=== PATIENT | female | born 1935 | race Caucasian/White ===

== ENCOUNTER 2017-07-14 14:58 | Emergency (ER) | payer MEDICARE ==
--- OUTSIDE RECORDS SUMMARY | 2017-07-14 15:06 | XMS REPORT ---
:1935 External Reference #:[id number] Author Organization [facility] Address [address] [place] [address] Phone [phone] Care Team Providers Name Role Phone Blayne Bravo MD Care Team Information Technical Architect Unavailable Blayne Bravo MD Primary Care Physician Unavailable Payers Type Date Identification Numbers Payment Provider Subscriber Commercial Policy Number: [id number] [employer] Olivia Morris PayID: [id number] [address] [place] [address] Commercial Expires: 2016 Policy Number: [facility] Olivia Morris [id number] PayID: [id number] [employer] [address] [address] [place] [address] Problems Date Description Provider Status Onset: 09/23/2015 Bipolar disorder Luis Alberto Xavier Active Onset: 09/23/2015 Low blood pressure Luis Alberto Xavier Active Onset: 09/24/2015 Anxiety state Luis Alberto XavierP Active Onset: 09/24/2015 Depressive disorder Luis Alberto Xavier [employer] Active Onset: 09/24/2015 Hypothyroidism Luis Alberto Xavier [employer] Active Onset: 09/24/2015 Chronic low back pain Luis Alberto XavierP Active Onset: 09/24/2015 Loss of appetite Luis Alberto Xavier [employer] Active Onset: 09/24/2015 Tobacco user Luis Alberto Xavier [employer] Active Onset: 09/24/2015 Chronic obstructive lung disease Luis Alberto Xavier [employer] Active Onset: 07/09/2014 Closed fracture of surgical neck of right Luis Alberto Xavier [employer] Active humerus Family History Date Family Member(s) Problem(s) Comments Father due to Colon Cancer () Mother due to Congestive Heart Failure () Social History Type Date Description Comments Marital Status Legal Status: Occupation Retired ETOH Use Denies alcohol use Smoking Patient is a current smoker, smokes every day 6-7 DAILY Recreational Drug Use Denies Drug Use Daily Caffeine Consumes on average 1 cup of regular coffee per day Allergies, Adverse Reactions, Alerts Date Description Reaction Status Severity Comments 09/23/2015 Penicillin active Medications Medication Date Status Form Strength Qnty SIG Indications Ordering Provider Alendronate Active Tablets 40mg 1 tab by M81.8 Lawrence, Sodium 018 mouth Ahmad M., every M.D. week Omeprazole Active Capsules DR 40mg 90caps 1 cap by L30.9 Lawrence, 018 mouth Ahmad M., every M.D. day as needed K21.0 Hydrocodone-Acetaminophen 11/04/2016 Active Tablets 5-325mg 90tabs 1 tab M51.37 Lawrence, by Ahmad mouth M., three M.D. times a day as needed M79.606 M51.37 Miralax 11/04/2016 Active Powder 3350NF 1020gm 1-2 caps by K59.00 Lawrence , mouth every Ahmad M., day M.D. Fluoxetine HCL 09/30/2016 Active Capsules 20mg 90caps 3 cap by E03.9 Lawrence, mouth every Ahmad M., morning M.D. F41.9 F33.9 Neurontin 09/02/2016 Active Capsules 300mg 120caps 1 cap by mouth F41.9 Lawrence, Ahmad four times a M., M.D. day G47.00 M15.9 Lisinopril 07/15/2016 Active Tablets 20mg 90tabs 1 by mouth I10 Lawrence, Ahmad every day M., M.D. Zoloft 06/21/2016 Active Tablets 100mg 90tabs 1 tab by mouth F31.9 Blayne Bravo every evening M., M.D. F41.9 F33.9 Calcium 1000 10/28/2015 Active Tablets [id number] 120tabs tab one M81.8 Lawrence, + D by mouth Ahmad twice a M., M.D. day Levothyroxin Active Tablets 100mcg 90tabs take 1 E03.9 Lawrence , e Sodium tablet by Ahmad mouth M., M.D. once daily Aspirin Active Tablets 81mg Take [address] Tablet By Mouth Once Daily For Preventio n I73.9 Clarithromycin Hx Tablets 500mg 20tabs 1 tab by J44.9 Blayne Bravo 018 - mouth twice a M., M.D. day 018 Hydrocodone-Acetaminop Hx Tablets 5-325mg 60tabs 1 tab by L30.9 Blayne Bravo hen 018 - mouth every 4 M., M.D. hours as 018 needed M25.559 M79.606 Ciprofloxacin HCL 11/04/2016 - Hx Tablets 500mg 14tabs 1 by K59.00 Lawrence, 11/11/2016 mouth Tonymalindsey Gallegos, twice a M.D. day Estradiol 10/11/2016 - Hx Patches 0.1mg/24 12units 1 Skin N95.9 Lawrence, 02/28/2017 Weekly HR every Ahmalindsey Gallegos, week M.D. Tylenol Extra 09/30/2016 - Hx Tablets 500mg 180tabs 2 tab by M51.37 Lawrence, Strength 11/04/2016 mouth Ahmalindsey M., three M.D. times a day M79.606 M51.37 Tramadol HCL 09/15/2016 - Hx Tablets 50mg 90tabs 1 by mouth J44.9 Blayne Bravo 09/30/2016 three times M., M.D. a day Benzonatate 09/15/2016 - Hx Capsules 200mg 60caps tab one by R05 Blayne Bravo 09/30/2016 mouth three M., M.D. times a day J44.9 Macrobid 09/05/2016 - Hx Capsules 100mg 10caps tab one by K59.00 Lawrence, 09/11/2016 mouth twice Ahmad M., a day x 5 M.D. days Hydrocodone-Ac 08/19/2016 - Hx Tablets 5-325mg 60tabs 1 tab by M51.37 Lawrence, etaminophen 09/15/2016 mouth every Ahmad M., 4 hours as M.D. needed M25.559 M79.606 Neurontin 06/21/2016 - Hx Capsules 300mg 90caps 1 cap by F41.9 Lawrence, Ahmad 08/19/2016 mouth three M., MAndreaD. times a day G47.00 M15.9 Amlodipine 04/15/2016 - Hx Tablets 5mg 30tabs 1 by mouth I10 Lawrence, Besylate 07/15/2016 every day Blayne Gallegos M.D. Calan SR 04/15/2016 - Hx Tablets ER 120mg 30tabs 1 tab by I10 Lawrence, 04/15/2016 mouth every Ahmad M., day M.D. Omeprazole 11/11/2015 - Hx Capsules DR 40mg 90caps 1 cap by K30 Lawrence, 09/20/2016 mouth every Ahmad M., day as M.D. needed K21.0 Tramadol HCL 09/23/2015 - Hx Tablets 50mg 90tabs 1 by mouth M51.37 Lawrence, Ahmad 08/19/2016 three times a M., M.D. day as needed M25.559 M79.606 Fluoxetine HCL 09/23/2015 - Hx Capsules 20mg 90caps 3 cap by F31.9 Lawrence, Ahmad 06/21/2016 mouth every M., M.D. day F41.9 F33.9 Daily Zach - Hx Tablets Take 1 Unknown 02/28/2017 Tablet By Mouth Once Daily Cyclobenzaprine HCL - Hx Tablets 5mg Take 1 M51.3 Unknown 11/26/2015 Tablet By 7 Mouth Nightly At Bedtime as Needed For Back Pain Alprazolam - Hx Tablets 0.25m F41.9 Breiman, 11/21/2015 miranda Gan MD Venlafaxine HCL ER - Hx Caps ER 24HR 150mg F33.9 Breiman, 12/10/2015 MD Malik Medications Administered in Office Medication Date Status Form Strength Qnty SIG Indications Ordering Provider Admin Of Administered Injection White, Pneumovax 016 Luis Alberto [employer] Immunizations CPT Code Status Date Vaccine Lot # [id number] Given 12/13/2016 Flu Vaccine 3+Yrs Old(Fluzone) [id number] Given 12/17/2015 Flu Vaccine 3+Yrs Old(Fluzone) [id number] Given 09/30/2015 Pneumovax [id number] Vital Signs Date Vital Result Comment 06/22/2017 BP Systolic 148 mmHg BP Diastolic 80 mmHg Weight 118.00 lb Heart Rate 83 /min Respiratory Rate 18 /min 05/19/2017 BP Systolic 148 mmHg BP Diastolic 82 mmHg Height 62 inches 5'2" Weight 122.00 lb BMI (Body Mass Index) 22.3 kg/m2 Heart Rate 81 /min Respiratory Rate 18 /min 04/07/2017 BP Systolic 162 mmHg BP Diastolic 82 mmHg Height 62 inches 5'2" Weight 121.00 lb BMI (Body Mass Index) 22.1 kg/m2 Heart Rate 81 /min Respiratory Rate 18 /min 02/28/2017 BP Systolic 126 mmHg BP Diastolic 72 mmHg Height 62 inches 5'2" Weight 122.00 lb BMI (Body Mass Index) 22.3 kg/m2 Heart Rate 83 /min Respiratory Rate 18 /min 01/17/2017 BP Systolic 152 mmHg BP Diastolic 80 mmHg Height 62 inches 5'2" Weight 125.00 lb BMI (Body Mass Index) 22.9 kg/m2 Heart Rate 86 /min Respiratory Rate 16 /min 12/13/2016 BP Systolic 132 mmHg BP Diastolic 68 mmHg Height 62 inches 5'2" Weight 125.00 lb BMI (Body Mass Index) 22.9 kg/m2 Heart Rate 89 /min Respiratory Rate 16 /min 12/01/2016 BP Systolic 140 mmHg BP Diastolic 80 mmHg Height 62 inches 5'2" Weight 123.00 lb BMI (Body Mass Index) 22.5 kg/m2 Heart Rate 81 /min Respiratory Rate 18 /min 11/04/2016 BP Systolic 138 mmHg BP Diastolic 72 mmHg Height 62 inches 5'2" Weight 127.00 lb BMI (Body Mass Index) 23.2 kg/m2 Heart Rate 88 /min Respiratory Rate 18 /min 10/11/2016 BP Systolic 130 mmHg BP Diastolic 58 mmHg Height 62 inches 5'2" Weight 126.00 lb BMI (Body Mass Index) 23.0 kg/m2 Heart Rate 97 /min Respiratory Rate 16 /min 09/30/2016 BP Systolic 142 mmHg BP Diastolic 60 mmHg Height 62 inches 5'2" Weight 125.00 lb BMI (Body Mass Index) 22.9 kg/m2 Heart Rate 80 /min Respiratory Rate 18 /min 09/15/2016 BP Systolic 142 mmHg BP Diastolic 62 mmHg Height 62 inches 5'2" Weight 132.00 lb BMI (Body Mass Index) 24.1 kg/m2 Heart Rate 99 /min Respiratory Rate 16 /min 09/05/2016 BP Systolic 102 mmHg BP Diastolic 54 mmHg Height 62 inches 5'2" Weight 132.00 lb BMI (Body Mass Index) 24.1 kg/m2 Heart Rate 80 /min Body Temperature 97.0 F Respiratory Rate 16 /min 08/19/2016 BP Systolic 132 mmHg BP Diastolic 64 mmHg Height 62 inches 5'2" Weight 135.00 lb BMI (Body Mass Index) 24.7 kg/m2 Heart Rate 71 /min Respiratory Rate 16 /min 07/15/2016 BP Systolic 134 mmHg BP Diastolic 70 mmHg Height 62 inches 5'2" Weight 137.00 lb BMI (Body Mass Index) 25.1 kg/m2 Heart Rate 68 /min Respiratory Rate 16 /min 07/08/2016 BP Systolic 148 mmHg BP Diastolic 80 mmHg Height 62 inches 5'2" Weight 135.00 lb BMI (Body Mass Index) 24.7 kg/m2 Heart Rate 86 /min Respiratory Rate 16 /min 06/21/2016 BP Systolic 118 mmHg BP Diastolic 60 mmHg Height 62 inches 5'2" Weight 127.00 lb BMI (Body Mass Index) 23.2 kg/m2 Heart Rate 80 /min Respiratory Rate 16 /min 05/26/2016 BP Systolic 170 mmHg BP Diastolic 64 mmHg Height 62 inches 5'2" Weight 128.00 lb BMI (Body Mass Index) 23.4 kg/m2 Heart Rate 57 /min Respiratory Rate 16 /min 05/12/2016 BP Systolic 150 mmHg BP Diastolic 72 mmHg Height 62 inches 5'2" Weight 129.00 lb BMI (Body Mass Index) 23.6 kg/m2 Heart Rate 89 /min Respiratory Rate 18 /min 04/15/2016 BP Systolic 198 mmHg BP Diastolic 98 mmHg BP Systolic Recheck 170 mmHg BP Diastolic Recheck 98 mmHg Height 62 inches 5'2" Weight 128.00 lb BMI (Body Mass Index) 23.4 kg/m2 Heart Rate 106 /min Respiratory Rate 16 /min 03/16/2016 BP Systolic 128 mmHg BP Diastolic 80 mmHg Height 62 inches 5'2" Weight 128.00 lb BMI (Body Mass Index) 23.4 kg/m2 Heart Rate 76 /min Respiratory Rate 18 /min 12/17/2015 BP Systolic 138 mmHg BP Diastolic 72 mmHg Height 62 inches 5'2" Weight 125.00 lb BMI (Body Mass Index) 22.9 kg/m2 Heart Rate 80 /min Respiratory Rate 18 /min 10/28/2015 BP Systolic 154 mmHg BP Diastolic 70 mmHg Height 62 inches 5'2" Weight 122.00 lb BMI (Body Mass Index) 22.3 kg/m2 Heart Rate 80 /min Respiratory Rate 20 /min 09/30/2015 BP Systolic 122 mmHg BP Diastolic 64 mmHg Height 62 inches 5'2" Weight 123.00 lb BMI (Body Mass Index) 22.5 kg/m2 Heart Rate 74 /min Respiratory Rate 18 /min 09/23/2015 BP Systolic 102 mmHg BP Diastolic 58 mmHg Height 62 inches 5'2" Weight 123.00 lb BMI (Body Mass Index) 22.5 kg/m2 Heart Rate 76 /min Respiratory Rate 18 /min Results Test Date Test Result H/L Range Note CBC Auto Diff 02/28/2017 White Blood Count 6.2 10^3/uL 3.5-10.8 Red Blood Count 5.27 10^6/uL 4.0-5.4 Hemoglobin 14.1 g/dL 12.0-16.0 Hematocrit 43 % 35-47 Mean Corpuscular Volume 82 fL 80-97 Mean Corpuscular Hemoglobin 27 pg 27-31 Mean Corpuscular HGB Conc 33 g/dL 31-36 Red Cell Distribution Width 16 % High 10.5-15 Platelet Count 167 10^3/uL 150-450 Mean Platelet Volume 9 um3 7.4-10.4 Abs Neutrophils 4.4 10^3/uL 1.5-7.7 Abs Lymphocytes 1.2 10^3/uL 1.0-4.8 Abs Monocytes 0.4 10^3/uL 0-0.8 Abs Eosinophils 0.2 10^3/uL 0-0.6 Abs Basophils 0 10^3/uL 0-0.2 Abs Nucleated RBC 0 10^3/uL Granulocyte % 71.5 % 38-83 Lymphocyte % 19.1 % Low 25-47 Monocyte % 5.9 % 1-9 Eosinophil % 2.7 % 0-6 Basophil % 0.8 % 0-2 Nucleated Red Blood Cells % 0.1 Comp Metabolic Panel 02/28/2017 Sodium 135 mmol/L 133-145 Potassium 4.4 mmol/L 3.5-5.0 Chloride 100 mmol/L Low 101-111 Co2 Carbon Dioxide 30 mmol/L 22-32 Anion Gap 5 mmol/L 2-11 Glucose 102 mg/dL High 70-100 Blood Urea Nitrogen 21 mg/dL 6-24 Creatinine 0.92 mg/dL 0.51-0.95 BUN/Creatinine Ratio 22.8 High 8-20 Calcium 9.5 mg/dL 8.6-10.3 Total Protein 6.7 g/dL 6.4-8.9 Albumin 4.0 g/dL 3.2-5.2 Globulin 2.7 g/dL 2-4 Albumin/Globulin Ratio 1.5 1-3 Total Bilirubin 0.50 mg/dL 0.2-1.0 Alkaline Phosphatase 80 U/L 34-104 Alt 12 U/L 7-52 Ast 16 U/L 13-39 Egfr Non- 58.9 >60 Egfr 75.7 >60 1 Laboratory test finding 02/28/2017 TSH (Thyroid Stim Horm) 1.00 mcIU/mL 0.34-5.60 Free T4 (Free Thyroxine) 1.08 ng/dL 0.61-1.12 Lipid Profile (Trig/Chol/HDL) 02/28/2017 Triglycerides 190 mg/dL 2 Cholesterol 272 mg/dL 3 HDL Cholesterol 47.8 mg/dL 4 LDL Cholesterol 186 mg/dL 5 Laboratory test finding 02/28/2017 Vitamin D Total 25(Oh) 44.6 ng/mL 20- 50 Basic Metabolic Panel 08/19/2016 Sodium 139 mmol/L 133-145 Potassium 4.3 mmol/L 3.5-5.0 Chloride 103 mmol/L 101-111 Co2 Carbon Dioxide 30 mmol/L 22-32 Anion Gap 6 mmol/L 2-11 Glucose 84 mg/dL 70-100 Blood Urea Nitrogen 17 mg/dL 6-24 Creatinine 1.04 mg/dL High 0.51-0.95 BUN/Creatinine Ratio 16.3 8-20 Calcium 9.5 mg/dL 8.6-10.3 Egfr Non- 51.1 >60 Egfr 65.7 >60 6 Lipid Profile (Trig/Chol/HDL) 03/16/2016 Triglycerides 113 mg/dL 7 Cholesterol 287 mg/dL 8 HDL Cholesterol 64.4 mg/dL 9 LDL Cholesterol 200 mg/dL 10 Comp Metabolic Panel 03/16/2016 Sodium 139 mmol/L 133-145 Potassium 4.3 mmol/L 3.5-5.0 Chloride 103 mmol/L 101-111 Co2 Carbon Dioxide 29 mmol/L 22-32 Anion Gap 7 mmol/L 2-11 Glucose 103 mg/dL High 70-100 Blood Urea Nitrogen 18 mg/dL 6-24 Creatinine 0.93 mg/dL 0.51-0.95 BUN/Creatinine Ratio 19.4 8-20 Calcium 9.9 mg/dL 8.6-10.3 Total Protein 6.8 g/dL 6.4-8.9 Albumin 4.2 g/dL 3.2-5.2 Globulin 2.6 g/dL 2-4 Albumin/Globulin Ratio 1.6 1-3 Total Bilirubin 0.50 mg/dL 0.2-1.0 Alkaline Phosphatase 66 U/L 34-104 Alt 11 U/L 7-52 Ast 13 U/L 13-39 Egfr Non- 58.3 >60 Egfr 75.0 >60 11 CBC Auto Diff 03/16/2016 White Blood Count 6.0 10^3/uL 3.5-10.8 Red Blood Count 5.41 10^6/uL High 4.0-5.4 Hemoglobin 14.8 g/dL 12.0-16.0 Hematocrit 46 % 35-47 Mean Corpuscular Volume 84 fL 80-97 Mean Corpuscular Hemoglobin 27 pg 27-31 Mean Corpuscular HGB Conc 32 g/dL 31-36 Red Cell Distribution Width 14 % 10.5-15 Platelet Count 200 10^3/uL 150-450 Mean Platelet Volume 9 um3 7.4-10.4 Abs Neutrophils 3.6 10^3/uL 1.5-7.7 Abs Lymphocytes 1.9 10^3/uL 1.0-4.8 Abs Monocytes 0.3 10^3/uL 0-0.8 Abs Eosinophils 0.1 10^3/uL 0-0.6 Abs Basophils 0.1 10^3/uL 0-0.2 Abs Nucleated RBC 0 10^3/uL Granulocyte % 59.7 % 38-83 Lymphocyte % 31.0 % 25-47 Monocyte % 5.8 % 1-9 Eosinophil % 2.4 % 0-6 Basophil % 1.1 % 0-2 Nucleated Red Blood Cells % 0.1 Laboratory test 03/16/2016 TSH (Thyroid Stim Horm) 0.41 mcIU/mL 0.34- 5.60 12 finding Laboratory test 12/17/2015 Vitamin D Total 25(Oh) 31.4 ng/mL 30-50 13 finding Lipid Profile 12/17/2015 Triglycerides 118 mg/dL 14 (Trig/Chol/HDL) Cholesterol 239 mg/dL 15 HDL Cholesterol 55.6 mg/dL 16 LDL Cholesterol 160 mg/dL 17 Comp Metabolic Panel 12/17/2015 Sodium 139 mmol/L 133-145 Potassium 4.0 mmol/L 3.5-5.0 Chloride 104 mmol/L 101-111 Co2 Carbon Dioxide 28 mmol/L 22-32 Anion Gap 7 mmol/L 2-11 Glucose 85 mg/dL 70-100 Blood Urea Nitrogen 26 mg/dL High 6-24 Creatinine 0.77 mg/dL 0.51-0.95 BUN/Creatinine Ratio 33.8 High 8-20 Calcium 9.9 mg/dL 8.6-10.3 Total Protein 6.6 g/dL 6.4-8.9 Albumin 4.0 g/dL 3.2-5.2 Globulin 2.6 g/dL 2-4 Albumin/Globulin Ratio 1.5 1-3 Total Bilirubin 0.40 mg/dL 0.2-1.0 Alkaline Phosphatase 69 U/L 34-104 Alt 10 U/L 7-52 Ast 14 U/L 13-39 Egfr Non- 72.5 >60 Egfr 93.2 >60 18 CBC Auto Diff 12/17/2015 White Blood Count 6.2 10^3/uL 3.5-10.8 Red Blood Count 4.81 10^6/uL 4.0-5.4 Hemoglobin 13.4 g/dL 12.0-16.0 Hematocrit 41 % 35-47 Mean Corpuscular Volume 85 fL 80-97 Mean Corpuscular Hemoglobin 28 pg 27-31 Mean Corpuscular HGB Conc 33 g/dL 31-36 Red Cell Distribution Width 17 % High 10.5-15 Platelet Count 186 10^3/uL 150-450 Mean Platelet Volume 10 um3 7.4-10.4 Abs Neutrophils 4.1 10^3/uL 1.5-7.7 Abs Lymphocytes 1.5 10^3/uL 1.0-4.8 Abs Monocytes 0.4 10^3/uL 0-0.8 Abs Eosinophils 0.1 10^3/uL 0-0.6 Abs Basophils 0.1 10^3/uL 0-0.2 Abs Nucleated RBC 0.01 10^3/uL Granulocyte % 66.7 % 38-83 Lymphocyte % 24.1 % Low 25-47 Monocyte % 6.5 % 1-9 Eosinophil % 1.6 % 0-6 Basophil % 1.1 % 0-2 Nucleated Red Blood Cells % 0.1 Laboratory test finding 12/17/2015 TSH (Thyroid Stim 1.39 mcIU/mL 0.34- 5.60 19 Horm) Free T4 (Free Thyroxine) 0.96 ng/dL 0.61-1.12 20 1 Because ethnic data is not always readily available, this report includes an eGFR for both -Americans and non- Americans. The National Kidney Disease Education Program (NKDEP) does not endorse the use of the MDRD equation for patients that are not between the ages of 18 and 70, are , have extremes of body size, muscle mass, or nutritional status, or are non- or non-. According to the National Kidney Foundation, irrespective of diagnosis, the stage of the disease is based on the level of kidney function: Stage Description GFR(mL/min/1.73 m(2)) 1 Kidney damage with normal or decreased GFR 90 2 Kidney damage with mild decrease in GFR 60-89 3 Moderate decrease in GFR 30-59 4 Severe decrease in GFR 15-29 5 Kidney failure <15 (or dialysis) 2 Desirable: <150 Borderline High: 150-199 High: 200-499 Very High: >500 3 Desirable: <200 Borderline High: 200-239 High: >239 4 Low: <40 Desirable: 40-60 High: >60 5 Desirable: <100 Near Optimal: 100-129 Borderline High: 130-159 High: 160-189 Very High: >189 6 Because ethnic data is not always readily available, this report includes an eGFR for both -Americans and non- Americans. The National Kidney Disease Education Program (NKDEP) does not endorse the use of the MDRD equation for patients that are not between the ages of 18 and 70, are , have extremes of body size, muscle mass, or nutritional status, or are non- or non-. According to the National Kidney Foundation, irrespective of diagnosis, the stage of the disease is based on the level of kidney function: Stage Description GFR(mL/min/1.73 m(2)) 1 Kidney damage with normal or decreased GFR 90 2 Kidney damage with mild decrease in GFR 60-89 3 Moderate decrease in GFR 30-59 4 Severe decrease in GFR 15-29 5 Kidney failure <15 (or dialysis) 7 Desirable <150 Borderline high 150-199 High 200-499 Very High >500 8 Desirable <200 Borderline high 200-239 High >239 9 Low <40 Desirable: 40-60 High: >60 10 Desirable: <100 mg/dL Near Optimal: 100-129 mg/dL Borderline High: 130-159 mg/dL High: 160-189 mg/dL Very High: >189 mg/dL 11 Because ethnic data is not always readily available, this report includes an eGFR for both -Americans and non- Americans. The National Kidney Disease Education Program (NKDEP) does not endorse the use of the MDRD equation for patients that are not between the ages of 18 and 70, are , have extremes of body size, muscle mass, or nutritional status, or are non- or non-. According to the National Kidney Foundation, irrespective of diagnosis, the stage of the disease is based on the level of kidney function: Stage Description GFR(mL/min/1.73 m(2)) 1 Kidney damage with normal or decreased GFR 90 2 Kidney damage with mild decrease in GFR 60-89 3 Moderate decrease in GFR 30-59 4 Severe decrease in GFR 15-29 5 Kidney failure <15 (or dialysis) 12 [id number] Desirable <150 Borderline high 150-199 High 200-499 Very High >500 15 Desirable <200 Borderline high 200-239 High >239 16 Low <40 Desirable: 40-60 High: >60 17 Desirable: <100 mg/dL Near Optimal: 100-129 mg/dL Borderline High: 130-159 mg/dL High: 160-189 mg/dL Very High: >189 mg/dL 18 Because ethnic data is not always readily available, this report includes an eGFR for both -Americans and non- Americans. The National Kidney Disease Education Program (NKDEP) does not endorse the use of the MDRD equation for patients that are not between the ages of 18 and 70, are , have extremes of body size, muscle mass, or nutritional status, or are non- or non-. According to the National Kidney Foundation, irrespective of diagnosis, the stage of the disease is based on the level of kidney function: Stage Description GFR(mL/min/1.73 m(2)) 1 Kidney damage with normal or decreased GFR 90 2 Kidney damage with mild decrease in GFR 60-89 3 Moderate decrease in GFR 30-59 4 Severe decrease in GFR 15-29 5 Kidney failure <15 (or dialysis) 19 [id number] 20 [id number] Procedures Date CPT Code Description Status 04/07/2017 88336 Spirometry Completed 09/15/2016 88465 Spirometry Completed 09/05/2016 57972 Spirometry Completed 09/05/2016 63989 Tympanometry Completed 04/15/2016 16191 EKG Completed 09/23/2015 22481 Visual Screening Test Completed 09/23/2015 07212 Audiometry, Bekesy, Screening Completed 02/20/2014 Mammogram Completed Encounters Type Date Location Provider CPT E/M Dx Office Visit 06/22/2017 1:00p [facility] Blayne Bravo M.D. 17643 J44.9 E03.9 I10 M51.37 F02.80 F17.210 E78.2 I65.22 I73.9 I65.23 F41.9 F31.9 M79.606 M25.559 F33.9 M15.9 M81.8 R55 L30.9 L20.9 J30.9 R26.81 K21.0 K30 H90.6 G47.00 R60.0 I71.4 N95.9 K59.00 E55.9 R05 R06.02 M25.562 Office Visit 05/19/2017 11:00a [facility] Blayne Bravo M.D. 99780 J44.9 E03.9 I10 M51.37 F02.80 F17.210 E78.2 I65.22 I73.9 I65.23 F41.9 F31.9 M79.606 M25.559 F33.9 M15.9 M81.8 R55 L30.9 L20.9 J30.9 R26.81 K21.0 K30 H90.6 G47.00 R60.0 I71.4 N95.9 K59.00 E55.9 J18.9 R05 R06.02 Office Visit 04/07/2017 1:30p [facility] Blayne Bravo M.D. 12206 J44.9 E03.9 I10 M51.37 F02.80 F17.210 E78.2 I65.22 I73.9 I65.23 F41.9 F31.9 M79.606 M25.559 F33.9 M15.9 M81.8 R55 L30.9 L20.9 J30.9 R26.81 K21.0 K30 H90.6 G47.00 R60.0 I71.4 N95.9 K59.00 E55.9 J18.9 R05 R06.02 Office Visit 02/28/2017 10:45a [facility] Blayne Bravo M.D. 17489 J44.9 E03.9 I10 M51.37 F02.80 F17.210 E78.2 I65.22 I73.9 I65.23 F41.9 F31.9 M79.606 M25.559 F33.9 M15.9 M81.8 R55 L30.9 L20.9 J30.9 R26.81 K21.0 K30 H90.6 G47.00 R60.0 I71.4 N95.9 K59.00 E55.9 Office Visit 01/17/2017 10:15a [facility] Blayne Bravo M.D. 85643 J44.9 E03.9 I10 M51.37 F02.80 F17.210 E78.2 I65.22 I73.9 I65.23 F41.9 F31.9 M79.606 M25.559 F33.9 M15.9 M81.8 R55 L30.9 L20.9 J30.9 R26.81 K21.0 K30 H90.6 G47.00 R60.0 I71.4 N95.9 K59.00 Office Visit 12/13/2016 10:30a [facility] Blayne Bravo M.D. 04808 J44.9 E03.9 I10 M51.37 F02.80 F17.210 E78.2 I65.22 I73.9 I65.23 F41.9 F31.9 M79.606 M25.559 F33.9 M15.9 M81.8 R55 L30.9 L20.9 J30.9 R26.81 K21.0 K30 H90.6 G47.00 R60.0 I71.4 N95.9 K59.00 Z23 Office Visit 12/01/2016 2:15p [facility] Blayne Bravo M.D. 51598 J44.9 E03.9 I10 M51.37 F02.80 F17.210 E78.2 I65.22 I73.9 I65.23 F41.9 F31.9 M79.606 M25.559 F33.9 M15.9 M81.8 R55 L30.9 L20.9 J30.9 R26.81 K21.0 K30 H90.6 G47.00 R60.0 I71.4 N95.9 K59.00 Office Visit 11/04/2016 1:30p [facility] Blayne Bravo M.D. 88674 J44.9 E03.9 I10 M51.37 F02.80 F17.210 E78.2 I65.22 I73.9 I65.23 F41.9 F31.9 M79.606 M25.559 F33.9 M15.9 M81.8 R55 L30.9 L20.9 J30.9 R26.81 K21.0 K30 H90.6 G47.00 R60.0 I71.4 N95.9 N39.0 K59.00 Z00.01 Office Visit 10/11/2016 1:30p [facility] Blayne Bravo M.D. 15815 J44.9 E03.9 I10 M51.37 F02.80 F17.210 E78.2 I65.22 I73.9 I65.23 F41.9 F31.9 M79.606 M25.559 F33.9 M15.9 M81.8 R55 L30.9 L20.9 J30.9 R26.81 K21.0 K30 H90.6 G47.00 R60.0 I71.4 N95.9 Office Visit 09/30/2016 1:30p [facility] Blayne Bravo M.D. 94882 J44.9 E03.9 I10 M51.37 F02.80 F17.210 E78.2 I65.22 I73.9 I65.23 F41.9 F31.9 M79.606 M25.559 F33.9 M15.9 M81.8 R55 L30.9 L20.9 J30.9 R26.81 K21.0 K30 H90.6 G47.00 R60.0 I71.4 Office Visit 09/15/2016 11:00a [facility] DucLuis Alberto [facility] [address] R05 F17.210 J44.9 E03.9 F02.80 Office Visit 09/05/2016 1:45p [facility] Luis Alberto Xavier [facility] [address]47 I10 M51.37 E03.9 E78.2 J44.9 F17.210 R30.0 N39.0 Office Visit 08/19/2016 2:15p [facility] Blayne Bravo M.D. 33027 I65.22 I73.9 I10 M51.37 E03.9 E78.2 J44.9 F17.210 I65.23 F41.9 F31.9 M79.606 M25.559 F33.9 M15.9 M81.8 R55 L30.9 L20.9 J30.9 R26.81 K21.0 K30 H90.6 G47.00 R60.0 Office Visit 07/15/2016 11:00a [facility] Blayne Bravo M.D. 82363 I65.22 I73.9 I10 M51.37 E03.9 E78.2 J44.9 F17.210 I65.23 F41.9 F31.9 M79.606 M25.559 F33.9 M15.9 M81.8 R55 L30.9 L20.9 J30.9 R26.81 K21.0 K30 H90.6 G47.00 R60.0 Office Visit 07/08/2016 1:45p [facility] Blayne Bravo M.D. 98026 I65.22 I73.9 I10 M51.37 E03.9 E78.2 J44.9 F17.210 I65.23 F41.9 F31.9 M79.606 M25.559 F33.9 M15.9 M81.8 R55 L30.9 L20.9 J30.9 R26.81 K21.0 K30 H90.6 G47.00 R60.0 Office Visit 06/21/2016 11:30a [facility] Blayne Bravo M.D. 01243 I65.22 I73.9 I10 M51.37 E03.9 E78.2 J44.9 F17.210 I65.23 F41.9 F31.9 M79.606 M25.559 F33.9 M15.9 M81.8 R55 L30.9 L20.9 J30.9 R26.81 K21.0 K30 H90.6 G47.00 Office Visit 05/26/2016 1:30p [facility] Blayne Bravo M.D. 88502 I65.22 I73.9 I10 M51.37 E03.9 E78.2 J44.9 F17.210 I65.23 F41.9 F31.9 M79.606 M25.559 F33.9 M15.9 M81.8 R55 L30.9 L20.9 J30.9 R26.81 K21.0 K30 H90.6 Office Visit 05/12/2016 2:30p [facility] Blayne Bravo M.D. 79662 I65.22 I73.9 I10 M51.37 E03.9 E78.2 J44.9 F17.210 I65.23 F41.9 F31.9 M79.606 M25.559 F33.9 M15.9 M81.8 R55 L30.9 L20.9 J30.9 R26.81 K21.0 K30 Z01.818 Office Visit 04/15/2016 4:30p [facility] Blayne Bravo M.D. 99887 I73.9 I10 M51.37 E03.9 E78.2 J44.9 F17.210 I65.23 F41.9 F31.9 M79.606 M25.559 F33.9 M15.9 M81.8 R55 K21.9 L30.9 L20.9 J30.9 R26.81 Office Visit 03/16/2016 11:00a [place] [facility] Luis Alberto Xavier [facility] 43343 M51.37 E03.9 E78.2 J44.9 F17.210 I65.23 F41.9 F31.9 I73.9 Office Visit 12/17/2015 11:30a [place] [facility] Blayne Bravo M.D. 73276 M51.37 M79.606 M25.559 E03.9 E78.2 J44.9 F17.210 I65.23 F31.9 F41.9 F33.9 M15.9 M81.8 R55 K21.9 L30.9 L20.9 J30.9 R26.81 Z23 I10 I95.9 Office Visit 10/28/2015 11:15a [place] [facility] Luis Alberto Xavier [facility] 13712 I65.23 I95.9 F31.9 F41.9 F17.210 M81.8 M25.552 Office Visit 09/30/2015 2:00p [place] [facility] Luis Alberto Xavier [facility] 91274 F17.210 R55 M25.552 I95.9 F31.9 F41.9 E03.9 I65.23 Z23 Office Visit 09/23/2015 10:45a [place] [facility] Luis Alberto Xavier [facility] 17779 F17.210 Z00.01 R55 I95.9 F31.9 F41.9 M25.552 E03.9 Plan of Care 06/22/2017 - Blayne Bravo M.D.J44.9 Chronic obstructive pulmonary disease, unspecifiedComments:INCREASE PO FLUIDRESTSMOKING ZIYLQYUJIK70.9 Hypothyroidism, unspecifiedComments:RX REVIEWED AND UPDATEDF/U TSH/ FT4I10 Essential (primary) hypertensionComments:CHECK BP TIW ( PRN)F/U LABDIET AND FLUID COUNSELING LOW SODIUM DIETWT LOSSM51.37 Other intervertebral disc degeneration, lumbosacral regionComments:EXERCISE/HEAT /MESSAGEAVOID HEAVY LIFTING WT LOSSTYLENOL OR MOTRIN PRN DUR CFMPJAOU19.80 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 elswhr w/o behavrl disturbComments:COUNCELLING AND REASSURANCE LTC PLANS DISSCUSED WITH PT / FAMILY LSGXYRT75.210 Nicotine dependence, cigarettes, uncomplicatedComments: SMOKING CESSATION BEEKFJYHZUAX17.2 Mixed hyperlipidemiaComments:DIET REVIEWED CONTINUE DIETWT LOSSF/U LAB FBWI65.22 Occlusion and stenosis of left carotid arteryComments:S/P L CEA 05/20/16STABLE AND ASYMPTOMATIC F/U WITH SURGERY WITH YEARLY CAROTID U/SI73.9 Peripheral vascular disease, unspecifiedComments:SKIN CARE FOOT CARE PODIATRY PRN CARE SMOKING WKFYMPOVBQ22.23 Occlusion and stenosis of bilateral carotid arteriesComments:STABLE AND ASYMPTOMATIC F/U WITH SURGERY WITH YEARLY CAROTID U/SF41.9 Anxiety disorder, unspecifiedComments: COUNCELLING AND REASSURANCE RELAXATION TECHNIQUES DISCUSSEDCOUNSELED RE: STRESSORS IN LIFE AVOID ALLENERGY/HIGH CAFFEINE AWKMDEO72.9 Bipolar disorder, unspecifiedComments:COUNSELING AND REASSURANCE CONTINUE PRESCRIBED MEDICATIONS RELAXATION TECHNIQUES DISCUSSED COUNSELEDRE: STRESSORS IN LIFEM79.606 Pain in leg, unspecifiedComments:TYLENOL OR MOTRIN PRN EXERCISE/HEAT/MESSAGE DUR CCEFLDZS77.559 Pain in unspecified hipComments:EXERCISE/HEAT/MESSAGETYLENOL OR MOTRIN PRNAVOID HEAVY LIFTINGWT LOSS DUR DXQBFWLB78.9 Major depressive disorder, recurrent, unspecifiedComments:COUNCELLING AND REASSURANCE RELAXATION TECHNIQUES DISCUSSED COUNSELED RE: STRESSORS IN LIFEM15.9 Polyosteoarthritis, unspecifiedComments:EXERCISE/HEAT/MESSAGETYLENOL OR MOTRIN PRNAVOID HEAVY LIFTINGWT LOSS DUR RTOFTQUV53.8 Other osteoporosis without current pathological fractureComments:EXERCISESCALCIUM [id number] Syncope and collapseComments: OBSERVE SAFETYCOUNCELLING AND XJIYOSJJLQYY08.9 Dermatitis, unspecifiedComments: SKIN CARE INSTRUCTIONS LOTION OR BABY OIL 2-3 APPLICATION PER DAYUSE MOISTURIZING SOAPAVOID PROLONGED WATER EXPOSUREAVOID USING HOT WATER IN HRCNXPS76.9 Atopic dermatitis, unspecifiedComments:SKIN CARE INSTRUCTIONS LOTION OR BABY OIL 2-3 APPLICATION PER DAYUSE MOISTURIZING SOAPAVOID PROLONGED WATER EXPOSUREAVOID USING HOT WATER IN NNMRZYU46.9 Allergic rhinitis, unspecifiedComments:INCREASE PO FLUID USE ANTIHISTAMINE PRN SECOND HAND SMOKING AVOIDANCE SMOKING UVRDKKXGJM21.81 Unsteadiness on feetComments:SAFETY CLEAR PATH @ HOMEAVOID USE OF LOOSE RUGSUSE CANE /WALKER NEEDEDPROVIDE ADEQUATE LIGHT @ HOMEUSE WELL FITTED SHOESCONSIDER USE OF REMOTE CALLING DEVICEARRANGE FOR REGURAL CHECK UP BY FAMILY ORFRIENDS USE CANEK21.0 Gastro-esophageal reflux disease with esophagitisComments:AVOID CAFFEINE, ETOH AND SPICY FOODSTUMS OR MYLANTA PRN CALL WITH PROBLEMS OR CONCERNSTOBACCO USE [id number] Functional dyspepsiaComments:AVOID CAFFEINE, ETOH AND SPICY FOODSTUMS OR MYLANTA PRN CALL WITH PROBLEMS OR CONCERNSTOBACCO USE LQPGFBHJHD80.6 Mixed conductive and sensorineural hearing loss, bilateralComments:OBSERVE F/U WITH ENT PRN SMOKING CWEOKZJOWN19.00 Insomnia, unspecifiedComments:COUNCELLING AND REASSURANCE RELAXATION TECHNIQUES DISCUSSED COUNSELED RE: STRESSORS IN LIFE TYLENOLPM OR MOTRIN PM PRN DUR APMRTAAH64.0 Localized edemaComments:ELEVATE LE PRNELASTIC STOCKING / CHERELLE WRAP PRNF/U LABI71.4 Abdominal aortic aneurysm, without ruptureComments:CALL 911 UNRULY WITH ANY ABD OR BACK PAIN F/U CT Q 6-12 GKOTCMU02.9 Unspecified menopausal and perimenopausal disorderComments: COUNCELLING AND GEHNWZYGTKVZYCTB18.00 Constipation, unspecifiedComments:MOM OR MIRALAX PRNHIGH FIBER DIETINCREASE PO VOHVMU70.9 Vitamin D deficiency, unspecifiedComments:INCREASE EXPOSURE TO SUNREVIEW OF DIETR05 CoughComments: INCREASE CLEAR LIQUIDSSTEAMGARGLE WARM SALT H2O TID ROBITUSSIN DM PRN SMOKING CESSATION CMGFEEUKDECG55.02 Shortness of breathComments:INCREASE PO FLUIDRESTSMOKING BRBXCLMKPP97.562 Pain in left kneeComments:EXERCISE/HEAT / MESSAGEAVOID HEAVY LIFTING WT LOSSTYLENOL OR MOTRIN PRNReferral:Evangelista Brian MD , Orthopedic/Nursery Helper
[2017-07-14 15:22] VITALS: BP 208/84
--- NOTE | 2017-07-14 15:23 | ED ---
HPI Chest Pain - HPI Summary HPI Summary: 81 yo h/o CAD, aortic stenosis, recent h/o left carotid endarterectomy c/o substernal CP x 1 day intermittent+nausea and "weakness" in general. - History of Current Complaint Chief Complaint: UCChestPain Time Seen by Provider: 07/14/17 15:05 Hx Obtained From: Patient Onset/Duration: Started Minutes Ago Timing: Lasting Hours Initial Severity: Moderate Current Severity: Moderate Pain Intensity: 0 - Allergy/Home Medications Allergies/Adverse Reactions: Allergies Allergy/AdvReac Type Severity Reaction Status Date / Time Penicillins Allergy Hives Verified 07/14/17 15:08 Home Medications: Home Medications Gabapentin CAP(*) [Neurontin 300 CAP(*)] 300 mg PO TID 07/14/17 [History Confirmed 07/14/17] Lisinopril TAB* [Prinivil TAB*] 20 mg PO DAILY 07/14/17 [History Confirmed 07/14] PMH/Surg Hx/FS Hx/Imm Hx Previously Healthy: Yes Endocrine/Hematology History: Reports: Hx Thyroid Disease Denies: Hx Diabetes Cardiovascular History: Reports: Hx Hypercholesterolemia, Hx Hypertension, Other Cardiovascular Problems/Disorders - "Poor circulation to feet" Denies: Hx Pacemaker/ICD History: Reports: Hx Renal Disease - abnormal gfr Denies: Hx Dialysis Sensory History: Reports: Hx Cataracts Denies: Hx Hearing Aid Opthamlomology History: Reports: Hx Cataracts Psychiatric History: Denies: Hx Panic Disorder - Surgical History Surgery Procedure, Year, and Place: 3 - THRYOID SURG - FINAL - THYROIDECTOMY. HYSTERECTOMY. CHOLECYTECTOMY. BROKEN ARM/SHOULDER RIGHT JUNE 2014 Infectious Disease History: No Infectious Disease History: Denies: Traveled Outside the [place] in Last 30 Days - Family History Known Family History: Positive: Hypertension, Other - Sister: Aneurysm - Social History Alcohol Use: None Hx Substance Use: No Substance Use Type: Reports: None Hx Tobacco Use: Yes Smoking Status (MU): Light Every Day Tobacco Smoker Type: Cigarettes Amount Used/How Often: 1 ppd Have You Smoked in the Last Year: Yes Review of Systems Positive: Fatigue Eyes: Negative ENT: Negative Positive: Chest Pain Respiratory: Negative Gastrointestinal: Negative Musculoskeletal: Negative Skin: Negative Neurological: Negative Psychological: Normal All Other Systems Reviewed And Are Negative: Yes Physical Exam Triage Information Reviewed: Yes Vital Signs On Initial Exam: Initial Vitals Temp Pulse Resp BP Pulse Ox 36.4 C 72 18 192/76 94 07/14/17 15:00 07/14/17 15:00 07/14/17 15:00 07/14/17 15:00 07/14/17 15:00 Vital Signs Reviewed: Yes Appearance: Positive: No Pain Distress Skin: Positive: Warm Eyes: Positive: Normal ENT: Positive: Normal ENT inspection Neck: Positive: Supple Respiratory/Lung Sounds: Positive: Clear to Auscultation Cardiovascular: Positive: Murmur - right 2nd ICD grade 2 cresendo decrescendo murmur, S1, S2 Abdomen Description: Positive: Nontender Musculoskeletal: Positive: Normal Neurological: Positive: Normal, Sensory/Motor Intact, CN Intact II-III, Speech Normal Psychiatric: Positive: Normal Diagnostics - Vital Signs Vital Signs Temp Pulse Resp BP Pulse Ox 07/14/17 15:00 36.4 C 72 18 192/76 94 - Laboratory Lab Statement: Any lab studies that have been ordered have been reviewed, and results considered in the medical decision making process. Chest Pain Course/Dx - Course Course Of Treatment: Pt sent to ED via ambulance due to acute substernal CP, EKG no STT chnages, no old EKG available - Chest Pain Differential Diagnosis/HQI/PQRI: Acute [place], ACS, Angina, Aortic Aneurysm, CHF, GI Disease - Diagnoses Provider Diagnoses: Chest pain due to CAD - Provider Notifications Admit/Transition Orders Completed By ED Provider: Yes Discharge - Sign-Out/Discharge Documenting (check all that apply): Discharge/Admit/Transfer - Discharge Plan Condition: Stable Disposition: TRANS [facility] CARE FAC Discharge Disposition Comment: Called ED and informed Megha the PA Patient Education Materials: Chest Pain (ED) Referrals: Blayne Bravo MD [Primary Care Provider] - - Billing Disposition and Condition Condition: STABLE Disposition: [id number]
== END 2017-07-14 15:25 | disposition short-term general hospital (02) ==
LOC: UCEAST 14:58
DX: R07.89 Other chest pain (principal); I25.10 Atherosclerotic heart disease of native coronary artery without angina pectoris; R11.0 Nausea; R53.1 Weakness; I10 Essential (primary) hypertension; Z79.899 Other long term (current) drug therapy; F17.210 Nicotine dependence, cigarettes, uncomplicated; Z88.0 Allergy status to penicillin
CPT/HCPCS: 93005; 99213; G0463

== ENCOUNTER 2017-07-14 15:55 | Emergency (ER) | payer MEDICARE ==
[2017-07-14 16:51] LABS: EGFR Non-African American 58.9 (>60)
--- NOTE | 2017-07-14 17:01 | RAD ---
Indication: 3 days chest pain. History of tobacco use. Comparison: September 15, 2016 Technique: Upright AP 1642 hours Report: Elevated lung volumes and mild to moderate diffuse prominence of the interstitial markings similar to the prior exam. No focal pulmonary lesion, compelling alveolar consolidation, pleural effusion, pneumothorax. Negative for cardiomegaly. Unremarkable central pulmonary vasculature and mediastinal contours. RIGHT prosthetic humeral head and cerclage wires at the humeral neck/proximal diaphysis as on the prior exam. IMPRESSION: Stigmata of obstructive lung disease. No acute pulmonary or cardiac process evident.
[2017-07-14 17:13] LABS: ABS Basophils 0 10^3/ul (0-0.2); ABS Eosinophils 0.2 10^3/ul (0-0.6); ABS Lymphocytes 1.5 10^3/ul (1.0-4.8); ABS Monocytes 0.4 10^3/ul (0-0.8); ABS Neutrophils 4.3 10^3/ul (1.5-7.7); ABS Nucleated RBC 0 10^3/ul; Eosinophil % 2.9 % (0-6); Hematocrit 42 % (35-47); Lymphocyte % 23.6 % (25-47); Mean Corpuscular HGB Conc 33 g/dl (31-36); Mean Corpuscular Hemoglobin 28 pg (27-31); Mean Corpuscular Volume 83 fL (80-97); Mean Platelet Volume 8.4 um3 (7.4-10.4); Nucleated Red Blood Cells % 0.1; Platelet Count 159 10^3/ul (150-450); Red Blood Count 5.08 10^6/ul (4.0-5.4); Red Cell Distribution Width 16 % (10.5-15); White Blood Count 6.5 10^3/ul (3.5-10.8)
[2017-07-14] MEDS ORDERED: hydrALAZINE IV* 20 MG/ML VIAL IV SLOW PU ONE (17:50)
[2017-07-14 19:50] VITALS: BP 176/80
--- NOTE | 2017-07-14 21:02 | ED ---
Yojana Cervantes Rebecca, scribed for Shabbir Miranda MD on 07/14/17 at 1625 . HPI Chest Pain - HPI Summary HPI Summary: Pt is a 81 y/o F BIBA who presents to ED from [facility] due to CP and elevated BP. Pt has had CP for the past 2 days, described as heaviness, like "somebody sitting on her chest" per daughter. Took hydrocodone for chronic back pain about 1.5 hours [employer]. Currently, pain is not present, ranked 0/10. Daughter additionally notes bilateral arm tingling and N/V earlier today. PMHx AAA (w/o rupture), HTN - is on medication; negative PMHx CAD. PSHx carotid endarterectomy 1 year ago. - History of Current Complaint Chief Complaint: EDChestPainROMI Time Seen by Provider: 07/14/17 16:17 Hx Obtained From: Patient Onset/Duration: Started Days Ago - 2 days, Resolved Current Severity: None Pain Intensity: 0 Pain Scale Used: 0-10 Numeric Character: Heaviness Aggravating Factor(s): Nothing Alleviating Factor(s): Medication - Hydrocodone [employer] Associated Signs and Symptoms: Positive: Nausea, Vomiting, Other: - elevated BP - Allergy/Home Medications Allergies/Adverse Reactions: Allergies Allergy/AdvReac Type Severity Reaction Status Date / Time Penicillins Allergy Hives Verified 07/14/17 15:08 Home Medications: Home Medications Alendronate Sodium 40 mg PO WEEKLY 07/14/17 [History Confirmed 07/14/17] Aspirin EC TAB* [Ecotrin EC Low Dose 81 MG*] 162 mg PO DAILY 07/14/17 [History Confirmed 07/14/17] Calcium Citrate TAB* [Citracal TAB*] 200 mg PO DAILY 07/14/17 [History Confirmed 07/14/17] Cholecalciferol (Vitamin D3) [Vitamin D3] 1,000 unit PO DAILY 07/14/17 [History Confirmed 07/14/17] FLUoxetine CAP* [PROzac CAP*] 60 mg PO QAM 07/14/17 [History Confirmed 07/14/17] HYDROcodone/ACETAMIN 5-325 MG* [[place] 5-325 TAB*] 1 tab PO TID PRN 07/14/17 [ History Confirmed 07/14/17] Levothyroxine TAB* [Synthroid TAB*] 100 mcg PO DAILY 07/14/17 [History Confirmed 07/14/17] Sertraline* [Zoloft*] 100 mg PO BEDTIME 07/14/17 [History Confirmed 07/14/17] PMH/Surg Hx/FS Hx/Imm Hx Endocrine/Hematology History: Reports: Hx Thyroid Disease Denies: Hx Diabetes Cardiovascular History: Reports: Hx Hypercholesterolemia, Hx Hypertension, Other Cardiovascular Problems/Disorders - "Poor circulation to feet" Denies: Hx Pacemaker/ICD History: Reports: Hx Renal Disease - abnormal gfr Denies: Hx Dialysis Sensory History: Reports: Hx Cataracts Denies: Hx Hearing Aid Opthamlomology History: Reports: Hx Cataracts Psychiatric History: Denies: Hx Panic Disorder - Surgical History Surgery Procedure, Year, and Place: 3 - THRYOID SURG - FINAL - THYROIDECTOMY. HYSTERECTOMY. CHOLECYTECTOMY. BROKEN ARM/SHOULDER RIGHT JUNE 2014 Infectious Disease History: No Infectious Disease History: Denies: Traveled Outside the [place] in Last 30 Days - Family History Known Family History: Positive: Hypertension, Other - Sister: Aneurysm - Social History Alcohol Use: None Hx Substance Use: No Substance Use Type: Reports: None Hx Tobacco Use: Yes Smoking Status (MU): Light Every Day Tobacco Smoker Type: Cigarettes Amount Used/How Often: 1 ppd Have You Smoked in the Last Year: Yes Review of Systems Positive: Chest Pain - resolved Positive: Vomiting, Nausea Neurological: Other - Bilateral UE tingling All Other Systems Reviewed And Are Negative: Yes Physical Exam - Summary Physical Exam Summary: VITAL SIGNS: Reviewed. GENERAL: ~Patient is a well-developed and nourished female who is lying comfortable in the stretcher. ~Patient is not in any acute respiratory distress. HEAD AND FACE: No signs of trauma. ~No ecchymosis, hematomas or skull depressions. No sinus tenderness. EYES: PERRLA, EOMI x 2, No injected conjunctiva, no nystagmus. EARS: Hearing grossly intact. Ear canals and tympanic membranes are within normal limits. MOUTH: Oropharynx within normal limits. NECK: Supple, trachea is midline, no adenopathy, no JVD, no carotid bruit, no c- spine tenderness, neck with full ROM. CHEST: Symmetric, no tenderness at palpation LUNGS: Clear to auscultation bilaterally. No wheezing or crackles. CVS: Regular rate and rhythm, S1 and S2 present, no murmurs or gallops appreciated. ABDOMEN: Soft, non-tender. No signs of distention. No rebound no guarding, and no masses palpated. Bowel sounds are normal. EXTREMITIES: FROM in all major joints, no edema, no cyanosis or clubbing. NEURO: Alert and oriented x 3. No acute neurological deficits. Speech is normal and follows commands. SKIN: Dry and warm Triage Information Reviewed: Yes Vital Signs On Initial Exam: Initial Vitals Resp 11 07/14/17 16:01 Vital Signs Reviewed: Yes Diagnostics - Vital Signs Vital Signs Temp Pulse Resp BP Pulse Ox 07/14/17 16:09 98.2 F 59 16 216/82 93 07/14/17 16:03 59 19 216/82 94 07/14/17 16:01 11 - Laboratory Lab Results: Lab Results 07/14/17 07/14/17 07/14/17 Range/Units 15:25 15:25 15:25 WBC (3.5-10.8) 10^3/ul RBC (4.0-5.4) 10^6/ul Hgb (12.0-16.0) g/dl Hct (35-47) % MCV (80-97) fL MCH (27-31) pg MCHC (31-36) g/dl RDW (10.5-15) % Plt Count (150-450) 10^3/ul MPV (7.4-10.4) um3 Neut % (Auto) (38-83) % Lymph % (Auto) (25-47) % Schuyler % (Auto) (0-7) % Eos % (Auto) (0-6) % Baso % (Auto) (0-2) % Absolute Neuts (auto) (1.5-7.7) 10^3/ul Absolute Lymphs (auto) (1.0-4.8) 10^3/ul Absolute Monos (auto) (0-0.8) 10^3/ul Absolute Eos (auto) (0-0.6) 10^3/ul Absolute Basos (auto) (0-0.2) 10^3/ul Absolute Nucleated RBC 10^3/ul Nucleated RBC % APTT 29.9 (26.0-36.3) seconds Sodium 138 L (139-145) mmol/L Potassium 3.8 (3.5-5.0) mmol/L Chloride 101 (101-111) mmol/L Carbon Dioxide 29 (22-32) mmol/L Anion Gap 8 (2-11) mmol/L BUN 22 (6-24) mg/dL Creatinine 0.92 (0.51-0.95) mg/dL Est GFR ( Amer) 75.7 (>60) Est GFR (Non-Af Amer) 58.9 (>60) BUN/Creatinine Ratio 23.9 H (8-20) Glucose 111 H (70-100) mg/dL Lactic Acid 0.7 (0.5-2.0) mmol/L Calcium 10.3 (8.6-10.3) mg/dL Total Bilirubin 0.40 (0.2-1.0) mg/dL AST 15 (13-39) U/L ALT 10 (7-52) U/L Alkaline Phosphatase 49 (34-104) U/L Total Creatine Kinase 13 (10-223) U/L CK-MB (CK-2) 1.0 (0.6-6.3) ng/mL Troponin I 0.01 (<0.04) ng/mL B-Natriuretic Peptide ( - 100) pg/mL Total Protein 7.0 (6.4-8.9) g/dL Albumin 4.2 (3.2-5.2) g/dL Globulin 2.8 (2-4) g/dL Albumin/Globulin Ratio 1.5 (1-3) TSH 1.62 (0.34-5.60) mcIU/mL 07/14/17 07/14/17 07/14/17 Range/Units 17:01 17:01 18:58 WBC 6.5 (3.5-10.8) 10^3/ul RBC 5.08 (4.0-5.4) 10^6/ul Hgb 14.0 (12.0-16.0) g/dl Hct 42 (35-47) % MCV 83 (80-97) fL MCH 28 (27-31) pg MCHC 33 (31-36) g/dl RDW 16 H (10.5-15) % Plt Count 159 (150-450) 10^3/ul MPV 8.4 (7.4-10.4) um3 Neut % (Auto) 66.4 (38-83) % Lymph % (Auto) 23.6 L (25-47) % Schuyler % (Auto) 6.6 (0-7) % Eos % (Auto) 2.9 (0-6) % Baso % (Auto) 0.5 (0-2) % Absolute Neuts (auto) 4.3 (1.5-7.7) 10^3/ul Absolute Lymphs (auto) 1.5 (1.0-4.8) 10^3/ul Absolute Monos (auto) 0.4 (0-0.8) 10^3/ul Absolute Eos (auto) 0.2 (0-0.6) 10^3/ul Absolute Basos (auto) 0 (0-0.2) 10^3/ul Absolute Nucleated RBC 0 10^3/ul Nucleated RBC % 0.1 APTT (26.0-36.3) seconds Sodium (139-145) mmol/L Potassium (3.5-5.0) mmol/L Chloride (101-111) mmol/L Carbon Dioxide (22-32) mmol/L Anion Gap (2-11) mmol/L BUN (6-24) mg/dL Creatinine (0.51-0.95) mg/dL Est GFR ( Amer) (>60) Est GFR (Non-Af Amer) (>60) BUN/Creatinine Ratio (8-20) Glucose (70-100) mg/dL Lactic Acid (0.5-2.0) mmol/L Calcium (8.6-10.3) mg/dL Total Bilirubin (0.2-1.0) mg/dL AST (13-39) U/L ALT (7-52) U/L Alkaline Phosphatase (34-104) U/L Total Creatine Kinase (10-223) U/L CK-MB (CK-2) (0.6-6.3) ng/mL Troponin I 0.00 (<0.04) ng/mL B-Natriuretic Peptide 123 H ( - 100) pg/mL Total Protein (6.4-8.9) g/dL Albumin (3.2-5.2) g/dL Globulin (2-4) g/dL Albumin/Globulin Ratio (1-3) TSH (0.34-5.60) mcIU/mL Result Diagrams: 07/14/17 17:01 07/14/17 15:25 Lab Statement: Any lab studies that have been ordered have been reviewed, and results considered in the medical decision making process. - Radiology CXR Xray Interpretation: No Acute Changes - Stigmata of obstructive lung disease. No acute pulmonary or cardiac process evident. ED physician reviewed this report. Radiology Interpretation Completed By: Radiologist - EKG 1624 Cardiac Rate: Bradycardia - 56 bpm EKG Rhythm: Sinus Bradycardia EKG Interpretation: No ST elevations Re-Evaluation - Re-Evaluation First Eval Re-Evaluation Time: 19:36 Change: Improved Comment: She has no chest pain at this time. Discussed results and she declined admission. Chest Pain Course/Dx - Course Assessment/Plan: This patient is a 81-year-old female with past medical history significant for osteopenia, hypothyroidism, depression, hypertension, and chronic back pain. She presents to the emergency room today with a chief complaint of having chest pain. She describes the pain as someone sitting on top of the chest. Initially the patient was placed in panel monitor, and IV access started. Blood test results without any significant abnormality except for sodium 138 glucose 111, BNP 123. Chest x-ray impression: Stigmata for obstructive lung disease. No acute pulmonary or cardiac process. The patient is hypertensive therefore the patient was given hydralazine 10 mg IV. Bp now is 158/68. 2 troponins 4 hours apart are 0.00. Because of her comorbidities I offered the patient admission however she declined. Both daughters agreed to take her home and if she develops any more chest pain, shortness of breath, nausea vomiting the patient will be brought back to the emergency Department. Otherwise the request for cardiology referral. I discussed all the findings and test results with the patient. Patient was instructed to return to the emergency room immediately if any of the symptoms return or worsens. Plan of care was discussed with the patient and understands and agrees. All questions were answered at patient satisfaction. There were no further complaints or concerns. Lung exam before discharge: CTA B/L. Good air exchange. No wheezing or crackles heard. CVS: S1 and S2 present. No murmurs appreciated. Patient is alert and oriented x 3. Patient is hemodynamically stable. Patient will be discharged home with follow up PCP in the next 2-3 days - Chest Pain Differential Diagnosis/HQI/PQRI: Acute [place], ACS, Angina, CHF, Chest Wall, GI Disease, Lower Respiratory Infection - Diagnoses Provider Diagnoses: Atypical chest pain, Uncontrolled hypertension Discharge - Sign-Out/Discharge Documenting (check all that apply): Discharge/Admit/Transfer - Discharge - Discharge Plan Condition: Stable Disposition: HOME Patient Education Materials: Chest Pain (ED), Hypertension (ED) Referrals: Blayne Bravo MD [Primary Care Provider] - 3 Days Lamonte Napier MD [Medical Doctor] - 07/18/17 Additional Instructions: RETURN TO ED FOR ANY NEW OR WORSENING SYMPTOMS. - Billing Disposition and Condition Condition: STABLE Disposition: HOME The documentation as recorded by the Yojana menendez Rebecca accurately reflects the service I personally performed and the decisions made by Ruben pizano Walter, MD.
== END 2017-07-14 19:50 | disposition home or self-care (01) ==
LOC: ED 15:55
DX: R07.89 Other chest pain (principal); R11.2 Nausea with vomiting, unspecified; F17.210 Nicotine dependence, cigarettes, uncomplicated; I10 Essential (primary) hypertension
CPT/HCPCS: 36415; 71045; 80053; 82550; 82553; 83605; 83880; 84443; 84484; 85025; 85730; 93005; 96374; 99283; J0360

== ENCOUNTER 2018-12-18 16:30 | Emergency (ER) | payer MEDICARE ==
--- OUTSIDE RECORDS SUMMARY | 2018-12-18 16:36 | XMS REPORT | Continuity of Care Document ---
:1935 External Reference #:[id number] Author Name Jason Cornell M.D. (transmitted by agent of provider Roxy Brand) Address [address] [address] Care Team Providers Name Role Phone Blayne Bravo MD - Family Medicine Care Team Information [employer] Operator Problems Active Problems Provider Date Essential hypertension Jason Cornell M.D. 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 Onset: 05/05/2016 Social History Type Date Description Comments Sex Unknown Tobacco Use Start: Unknown quit 11/10/18 ETOH Use Denies alcohol use Recreational Drug Use Denies Drug Use Tobacco Use Start: Unknown End: Patient is a former Pt quit 11/10/18 Unknown smoker Smoking Status Reviewed: 11/14/18 Patient is a former Pt quit 11/10/18 smoker Exercise Type/Frequency Does not exercise Allergies, Adverse Reactions, Alerts Active Allergies Reaction Severity Comments Date Penicillin 10/29/2014 Medications Active Medications SIG Qnty Indications Ordering Provider Date Sertraline HCL 1 by mouth every Unknown 11/13/2018 100mg day Tablets Lisinopril 1 by mouth every Unknown 11/13/2018 20mg Tablets day Omeprazole 1 by mouth every Unknown 11/13/[address] Frederickndronate Sodium Once a week on Unknown 11/13/2018 40mg Monday Tablets Cimetidine 1 tab am and 1 tab Unknown 11/13/2018 200mg Tablets pm Aspirin Ec 1 by mouth every Unknown 81mg Tablets day Levothyroxine Sodium 1 by mouth every Unknown day 100mcg Tablets Fluoxetine HCL 3 by mouth every Unknown 20mg day Tablets Atorvastatin Calcium 1 by mouth every Unknown 20mg day Tablets Ibuprofen 1 by mouth three Unknown 800mg Tablets times a day as needed Hydrocodone take 1 tab by Unknown Bitartrate/Acetaminoph mouth every 4-6 en hours as needed 5-325mg Tablets pain Medications Administered in Office Medication SIG Qnty Indications Ordering Provider Date Inj, Regadenoson, 0.1 MG Rene Martel, DO [facility] 11/05/2014 Injection Technetium TC 99M Rene Martel, DO [facility] 11/05/2014 Tetrofosmin, Per Unit Dose Up To 40 Millicuries Injection Immunizations Description No Information Available Vital Signs Date Vital Result Comment 11/14/2018 11:13am Height 61 inches 5'1" Weight 126.38 lb with shoes Heart Rate 78 /min radial BP Systolic Sitting 170 mmHg Lue reg cuff BP Diastolic Sitting 100 mmHg Lue reg cuff BP Systolic Standing 170 mmHg Rue reg cuff sitting BP Diastolic Standing 100 mmHg Rue reg cuff sitting BMI (Body Mass Index) 23.9 kg/m2 05/05/2016 2:08pm Height 61 inches 5'1" Weight 130.00 lb w/ shoes Heart Rate 80 /min reg BP Systolic Sitting 124 mmHg Lue, reg cuff BP Diastolic Sitting 74 mmHg Lue, reg cuff Respiratory Rate 16 /min BMI (Body Mass Index) 24.6 kg/m2 Results Test Date Facility Test Result H/L Range Note Basic Metabolic 11/20/2018 [facility] Sodium 138 mmol/L Normal 135-[address] [place] [address] [phone] Potassium 4.5 mmol/L Normal 3.5-5.0 Chloride 103 mmol/L Normal 101-111 Co2 Carbon Dioxide 29 mmol/L Normal 22-32 Anion Gap 6 mmol/L Normal 2-11 Glucose 101 mg/dL High 70-100 Blood Urea Nitrogen 24 mg/dL Normal 6-24 Creatinine 1.13 mg/dL High 0.51-0.95 BUN/Creatinine Ratio 21.2 High 8-20 Calcium 9.6 mg/dL Normal 8.6-10.3 Egfr Non- 46.2 >60 Egfr 55.9 >60 1 1 Because ethnic data is not always [...] 15-29 5 Kidney failure <15 (or dialysis) Procedures Description No Information Available Medical Devices Description No Information Available Encounters Type Date Location Provider Dx Diagnosis Office Visit 11/14/2018 [facility] Jason Cornell, I70.213 [facility] [place] 11:[facility] [place] arteries of extrm w intrmt rhonda, bi legs I50.20 Unspecified systolic (congestive) heart failure I10 Essential (primary) hypertension Assessments Date Code Description Provider 11/14/2018 I70.213 Atherosclerosis 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 extremities with intermittent claudication, bilateral legs 11/14/2018 I50.20 Unspecified systolic (congestive) heart Jason Cornell M.D. failure 11/14/2018 I10 Essential (primary) hypertension Jason Cornell M.D. Plan of Treatment 11/14/2018 - Jason Cornell M.D.I70.213 Atherosclerosis of [place] arteries of extremities with intermittent claudication, bilateral legsNew Xrays:Cta Abd Aorta & Runoff, Ordered: 11/14/18Comments:The following was discussed with Olivia and her daughter Clarita at the time of consultation:Based on themost recent MANUEL with worsening values, it is likely that the patient's flow-limiting arterial atherosclerosis has worsened since I first met her in clinic 2016. At that time I suggested she undergo angiography and she declined intervention.Currently the best means of vascular management is CTA with runoff which will objectively determine interval worsening and vasculopathy relative to the 07/01/2015 CTA and determine feasibility of endovascular revascularization.I50.20 Unspecified systolic (congestive) heart failureComments :The patient has idiopathic left foot and ankle swelling that I suspect is causing focal pain at thissite. The patient had a venous duplex sonogram that was negative for DVT.This swelling combined with the "crackles" heard overlying the posterior lung bases are likely due to a mild degree of congestive heart failure. Olivia denies any new shortness of breath.As I discussed with the patient and her daughter, Olivia may benefit from diuretic therapy which will also supplement blood pressure control.I recommend they discuss this with Olivia his primary care provider Dr. Bravo and/or Chivo KATE. Iprovided a prescription for medical grade compression stockings which I anticipate will reduce the swelling and thus reduce the focal left foot and ankle pain.I10 Essential (primary) hypertensionComments:Raises blood pressure during her clinic visit today measured 170/100. The patient and her daughter report similar measurements at home on their home blood pressure measuring system.I advised them to discuss adding a second antihypertensive medication with Olivia' s primary care providers as noted in the above section.The CTA with runoff that I ordered will also depict the renal arteries to determine if there are any signs of renal artery stenosis which might be exacerbating hypertension. Functional Status Description No Information Available Mental Status Description No Information Available Referrals Description No Information Available
--- OUTSIDE RECORDS SUMMARY | 2018-12-18 16:36 | XMS REPORT | Continuity of Care Document ---
:1935 External Reference #:[id number] Author Name Chivo Kelly N.P. 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 [phone] Problems Active Problems Provider Date Bipolar disorder Luis Alberto Xavier [employer] Onset: 09/23/2015 Low blood pressure Luis Alberto Xavier [employer] Onset: 09/23/2015 Anxiety state Luis Alberto Xavier [employer] Onset: 09/24/2015 Depressive disorder Luis Alberto Xavier [employer] Onset: 09/24/2015 Hypothyroidism Luis Alberto Xavier [employer] Onset: 09/24/2015 Chronic low back pain Luis Alberto Xavier [employer] Onset: 09/24/2015 Loss of appetite Luis Alberto Xavier [employer] Onset: 09/24/2015 Tobacco user Luis Alberto Xavier [employer] Onset: 09/24/2015 Chronic obstructive lung disease Luis Alberto Xavier [employer] Onset: 09/24/2015 Closed fracture of surgical neck of right humerus Luis Alberto Xavier [employer] Onset: Social History Type Date Description Comments Sex Unknown ETOH Use Denies alcohol use Tobacco Use Start: Unknown Patient is a current smoker, 6-7 DAILY smokes every day Recreational Drug Use Denies Drug Use Smoking Status Reviewed: 10/24/18 Patient is a current smoker, 6-7 DAILY smokes every day Allergies, Adverse Reactions, Alerts Active Allergies Reaction Severity Comments Date Penicillin 09/23/2015 Medications Active Medications SIG Qnty Indications Ordering Provider Date Ibuprofen 1 by mouth three 90tabs M79.672 Blayne Bravo, 11/02/2018 800mg Tablets times a day as M.D. needed Atorvastatin Calcium take one tablet 30tabs E78.2 Blayne Bravo, 2018 by mouth at M.D. 20mg Tablets bedtime Ranitidine 150 1 tab by mouth 180tabs K21.0 Blayne Bravo, 09/03/2018 Maximum Strength twice a day M.D. 150mg Tablets Omeprazole 1 by mouth every 30caps L30.9 LawrenceBlayne omalley, 09/03/2018 [address]D. Capsules DR K21.0 Tylenol Extra Strength 2 tabs by mouth 180tabs M79.606 LawrenceBlayne gusman, three times a day as M.D. 500mg Tablets directed. max daily dose of tylenol from all sources to not exceed 4000mg Aleve 1 tab by mouth twice 60tabs M79.606 Blayne Bravo, 09/03/2018 220mg Tablets a day with food M.D. Cipro 1 tab by mouth twice 14tabs I10 Blayne Bravo, 03/08/2018 500mg Tablets a day M.D. Alendronate Sodium 1 tab by mouth every 14tabs M81.8 Blayne Bravo, 10/2017 40mg week M.D. Tablets Hydrocodone-Acetaminop 1 tab by mouth four 60tabs M51.37 Blayne Bravo, 11/04/2016 hen times a day as M.D. 5-325mg Tablets needed M79.606 M51.37 Miralax 1-2 caps by mouth 1020gm K59.00 Blayne Bravo, 11/04/2016 3350NF Powder every day M.D. Estradiol 1 skin every week 12units N95.9 Blayne Bravo, 10/11/2016 0.1mg/24HR M.D. Patches Weekly Fluoxetine HCL Take 2 Capsules By 90caps E03.9 Blayne Bravo, 09/30/2016 20mg Mouth In The Morning M.D. Capsules And 1 Tablet AT Night F41.9 F33.9 Lisinopril take 1 tablet by 90tabs I10 Blayne Bravo, 07/15/2016 20mg Tablets mouth once daily M.D. Zoloft 1 tab by mouth every 90tabs F31.9 Blayne Bravo M., 06/21/2016 100mg Tablets evening M.D. F41.9 F33.9 Aspirin Take 2 Tablet By Mouth Once I65.[address] Daily For Prevention I73.9 Levothyroxine Sodium take 1 tablet by 90tabs E03.9 Blayne Bravo M., 100mcg mouth once daily M.D. Tablets Medications Administered in Office Medication SIG Qnty Indications Ordering Provider Date Admin Of Pneumovax Luis Alberto Xavier [employer] 09/30/2015 Injection Immunizations CPT Code Status Date Vaccine Lot # [id number] Given 12/12/2017 Flu Vaccine 3+Yrs Old(Fluzone) [id number] Q2038 Given 12/13/2016 Flu Vaccine 3+Yrs Old(Fluzone) [id number] Q2038 Given 12/17/2015 Flu Vaccine 3+Yrs Old(Fluzone) [id number] Given 09/30/2015 Pneumovax [id number] Vital Signs Date Vital Result Comment 11/02/2018 1:07pm BP Systolic 124 mmHg BP Diastolic 62 mmHg Height 62 inches 5'2" Weight 126.00 lb BMI (Body Mass Index) 23.0 kg/m2 Heart Rate 84 /min Respiratory Rate 16 /min 10/24/2018 11:02am BP Systolic 156 mmHg BP Diastolic 72 mmHg Height 62 inches 5'2" Weight 126.00 lb BMI (Body Mass Index) 23.0 kg/m2 Heart Rate 90 /min Respiratory Rate 16 /min Results Test Date Facility Test Result H/L Range Note Laboratory test 10/26/2018 [facility] Urine SPECIMEN 1 finding [facility] Culture DESCRIP <SEE (607)- - NOTE> CBC With Diff 10/05/2018 [facility] WBC 6.5 10*3/uL (4.1-11.0) [facility] (607)- - RBC 4.89 10*6/uL (4.00-5.40) HGB 14.0 g/dL (12.0-16.0) HCT 42.2 % (36.0-47.0) MCV 86.3 fL (80.0-95.0) MCH 28.5 pg (27.0-32.0) MCHC 33.1 g/dL (32.0-36.0) RDW 15.9 % High (10.5-14.5) PLT 176 10*3/uL (150-450) MPV 8.7 fL (7.1-10.7) Neut % 69.9 % (35.0-75.0) Lymph % 19.8 % (16.0-52.0) [place] % 7.0 % (0.0-8.0) Eos % 2.5 % (0.0-5.0) Baso % 0.8 % (0.0-4.0) Neut # 4.6 10*3/uL (1.8-7.7) Lymph # 1.3 10*3/uL (1.2-4.8) [place] # 0.5 10*3/uL (0.0-0.8) Eos # 0.2 10*3/uL (0.0-0.5) Baso # 0.1 10*3/uL (0.0-0.2) CMP 10/05/2018 [facility] Sodium 141 mmol/L (136-145) [facility] (607)- - Potassium 4.4 mmol/L (3.6-5.2) Chloride 105 mmol/L (100-108) Co2 28 mmol/L (22-31) Anion Gap 8 mmol/L (7-16) Urea Nitrogen 21 mg/dL (7-24) Creatinine 1.01 mg/dL High (0.60-1.00) BUN/Creat Ratio 20.8 RATIO High (10.0-20.0) Glucose 80 mg/dL (70-99) Calcium 9.2 mg/dL (8.4-10.2) Total Protein 6.8 g/dL (6.4-8.2) Albumin 3.9 g/dL (3.2-4.5) Globulin 2.9 g/dL (2.7-4.3) Alb/Glob Ratio 1.3 RATIO Alkaline Phosphatase 63 U/L (45-117) Bilirubin,Total 0.4 mg/dL (0.0-1.0) Ast (Sgot) 16 U/L (11-39) Alt (SGPT) 17 U/L (12-78) GFR 53 ml/min/1.73m2 Low (>59) GFR ( Amer) >60 ml/min/1.73m2 (>59) GFR Interpretation <SEE NOTE> 2 Laboratory test 10/05/2018 [facility] Free Thyroxine 1.08 ng/dL (0.76- 1.46) finding [address] [facility] @ (607)- - TSH,Ultrasensitive @ 0.782 mIU/L (0.360-4.170) Lipid 10/05/2018 [facility] Cholesterol @ 269 mg/dL High (0-200) [facility] [employer] (607)- - Triglyceride @ 218 mg/dL High (30-200) HDL Cholesterol @ 51 mg/dL (>40) 3 Chol/HDL Ratio 5.3 RATIO 4 LDL Chol (Calc) 174 mg/dL High (<130) 5 Laboratory test finding 10/05/2018 [facility] Esr 6 mm/h (0-30) [facility] [employer] (607)- - 25 Hydroxy Vit D @ 29 ng/mL Low (31-100) 6 1 SPECIMEN DESCRIPTION MIDSTREAM URINE,CLEAN CATCH CULTURE RESULTS MIXED UROGENITAL MISTY; PLEASE SUBMIT A NEW SPEC IMEN IF CLINICALLY INDICATED. REPORT STATUS FINAL 10/28/2018 2 NORMAL KIDNEY FUNCTION OR MILD DISEASE - GFR >OR= 60 CHRONIC KIDNEY DISEASE - GFR 15 - 59 RENAL FAILURE - GFR <15 Est. GFR calculation based on the MDRD study equation, which assumes a steady state for creatinine. Est. GFR should not be used for medication dosing. 3 PER NCEP ATP III GUIDELINES: RESULTS LOWER THAN 40 MG/DL ARE SUGGESTIVE OF INCREASED RISK FOR CORONARY ARTERY DISEASE. RESULTS > OR = TO 60 MG/DL ARE CONSIDERED A NEGATIVE RISK FACTOR. 4 INTERPRETATION OF CHOL-HDL RATIO CHD RISK FEMALE MALE VERY HIGH >8.3 >14.3 HIGH 5.6- 8.3 6.7- 14.3 AVERAGE 3.7- 5.6 4.0- 6.7 BELOW AVERAGE 2.5- 3.7 2.7- 4.0 PROTECTED <2.5 <2.7 5 PER NCEP ATP III GUIDELINES: OPTIMAL < 100 NEAR OPTIMAL 100 - 129 BORDERLINE HIGH 130 - 159 HIGH 160 - 189 VERY HIGH > 189 6 A REVIEW OF THE LITERATURE SUGGESTS THE FOLLOWING RANGES FOR THE CLASSIFICATION OF 25-OH VITAMIN D STATUS: VITAMIN D STATUS 25-OH VITAMIN D DEFICIENCY <20 NG/ML INSUFFICIENCY 20-30 NG/ML SUFFICIENCY 31 - 100 NG/ML TOXICITY > 100 NG/ML A PEDIATRIC REFERENCE RANGE HAS NOT BEEN ESTABLISHED USING THIS METHOD. Procedures Date Code Description Status 05/31/2018 74413 Ear Irrigation Completed 02/20/2014 [id number] Mammogram Completed Medical Devices Description No Information Available Encounters Type Date Location Provider Dx Diagnosis Office Visit 11/02/2018 [facility] Chivo Kelly, I10 Essential ( primary) 1:15p N.P. hypertension E03.9 Hypothyroidism, unspecified E78.2 Mixed hyperlipidemia I73.9 Peripheral vascular disease, unspecified I65.23 Occlusion and stenosis of bilateral carotid arteries J44.9 Chronic obstructive pulmonary disease, unspecified R73.01 Impaired fasting glucose M51.37 Other intervertebral disc degeneration, lumbosacral region F02.80 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 elswhr w/o behavrl disturb F17.210 Nicotine dependence, cigarettes, uncomplicated F41.9 Anxiety disorder, unspecified F31.9 Bipolar disorder, unspecified M79.606 Pain in leg, unspecified M25.559 Pain in unspecified hip F33.9 Major depressive disorder, recurrent, unspecified M15.9 Polyosteoarthritis, unspecified M81.8 Other osteoporosis without current pathological fracture R55 Syncope and collapse L30.9 Dermatitis, unspecified L20.9 Atopic dermatitis, unspecified J30.9 Allergic rhinitis, unspecified R26.81 Unsteadiness on feet K21.0 Gastro-esophageal reflux disease with esophagitis K30 Functional dyspepsia H90.6 Mixed conductive and sensorineural hearing loss, bilateral G47.00 Insomnia, unspecified R60.0 Localized edema I71.4 Abdominal aortic aneurysm, without rupture N95.9 Unspecified menopausal and perimenopausal disorder K59.00 Constipation, unspecified E55.9 Vitamin D deficiency, unspecified R05 Cough R06.02 Shortness of breath M25.562 Pain in left knee R07.9 Chest pain, unspecified M79.672 Pain in left foot Office Visit 10/24/2018 11:00a [facility] Chivo Kelly, I10 Essential (primary) N.P. hypertension E03.9 Hypothyroidism, unspecified E78.2 Mixed hyperlipidemia I73.9 Peripheral vascular disease, unspecified I65.23 Occlusion and stenosis of bilateral carotid arteries J44.9 Chronic obstructive pulmonary disease, unspecified R73.01 Impaired fasting glucose M51.37 Other intervertebral disc degeneration, lumbosacral region F02.80 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 elswhr w/o behavrl disturb F17.210 Nicotine dependence, cigarettes, uncomplicated F41.9 Anxiety disorder, unspecified F31.9 Bipolar disorder, unspecified M79.606 Pain in leg, unspecified M25.559 Pain in unspecified hip F33.9 Major depressive disorder, recurrent, unspecified M15.9 Polyosteoarthritis, unspecified M81.8 Other osteoporosis without current pathological fracture R55 Syncope and collapse L30.9 Dermatitis, unspecified L20.9 Atopic dermatitis, unspecified J30.9 Allergic rhinitis, unspecified R26.81 Unsteadiness on feet K21.0 Gastro-esophageal reflux disease with esophagitis K30 Functional dyspepsia H90.6 Mixed conductive and sensorineural hearing loss, bilateral G47.00 Insomnia, unspecified R60.0 Localized edema I71.4 Abdominal aortic aneurysm, without rupture N95.9 Unspecified menopausal and perimenopausal disorder K59.00 Constipation, unspecified E55.9 Vitamin D deficiency, unspecified R05 Cough R06.02 Shortness of breath M25.562 Pain in left knee R07.9 Chest pain, unspecified Office Visit 10/05/2018 8:45a [facility] Chivo Kelly, I10 Essential (primary) N.P. hypertension E03.9 Hypothyroidism, unspecified E78.2 Mixed hyperlipidemia I73.9 Peripheral vascular disease, unspecified I65.23 Occlusion and stenosis of bilateral carotid arteries J44.9 Chronic obstructive pulmonary disease, unspecified R73.01 Impaired fasting glucose M51.37 Other intervertebral disc degeneration, lumbosacral region F02.80 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 elswhr w/o behavrl disturb F17.210 Nicotine dependence, cigarettes, uncomplicated F41.9 Anxiety disorder, unspecified F31.9 Bipolar disorder, unspecified M79.606 Pain in leg, unspecified M25.559 Pain in unspecified hip F33.9 Major depressive disorder, recurrent, unspecified M15.9 Polyosteoarthritis, unspecified M81.8 Other osteoporosis without current pathological fracture R55 Syncope and collapse L30.9 Dermatitis, unspecified L20.9 Atopic dermatitis, unspecified J30.9 Allergic rhinitis, unspecified R26.81 Unsteadiness on feet K21.0 Gastro-esophageal reflux disease with esophagitis K30 Functional dyspepsia H90.6 Mixed conductive and sensorineural hearing loss, bilateral G47.00 Insomnia, unspecified R60.0 Localized edema I71.4 Abdominal aortic aneurysm, without rupture N95.9 Unspecified menopausal and perimenopausal disorder K59.00 Constipation, unspecified E55.9 Vitamin D deficiency, unspecified R05 Cough R06.02 Shortness of breath M25.562 Pain in left knee R07.9 Chest pain, unspecified Office Visit 09/03/2018 1:00p [facility] Chivo Kelly, I10 Essential (primary) N.P. hypertension E03.9 Hypothyroidism, unspecified E78.2 Mixed hyperlipidemia I73.9 Peripheral vascular disease, unspecified I65.23 Occlusion and stenosis of bilateral carotid arteries J44.9 Chronic obstructive pulmonary disease, unspecified R73.01 Impaired fasting glucose M51.37 Other intervertebral disc degeneration, lumbosacral region F02.80 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 elswhr w/o behavrl disturb F17.210 Nicotine dependence, cigarettes, uncomplicated F41.9 Anxiety disorder, unspecified F31.9 Bipolar disorder, unspecified M79.606 Pain in leg, unspecified M25.559 Pain in unspecified hip F33.9 Major depressive disorder, recurrent, unspecified M15.9 Polyosteoarthritis, unspecified M81.8 Other osteoporosis without current pathological fracture R55 Syncope and collapse L30.9 Dermatitis, unspecified L20.9 Atopic dermatitis, unspecified J30.9 Allergic rhinitis, unspecified R26.81 Unsteadiness on feet K21.0 Gastro-esophageal reflux disease with esophagitis K30 Functional dyspepsia H90.6 Mixed conductive and sensorineural hearing loss, bilateral G47.00 Insomnia, unspecified R60.0 Localized edema I71.4 Abdominal aortic aneurysm, without rupture N95.9 Unspecified menopausal and perimenopausal disorder K59.00 Constipation, unspecified E55.9 Vitamin D deficiency, unspecified R05 Cough R06.02 Shortness of breath M25.562 Pain in left knee R07.9 Chest pain, unspecified Office Visit 2018 3:00p [facility] Blayne Bravo I10 Essential ( primary) Nazia Gallegos hypertension E03.9 Hypothyroidism, unspecified E78.2 Mixed hyperlipidemia I73.9 Peripheral vascular disease, unspecified I65.23 Occlusion and stenosis of bilateral carotid arteries J44.9 Chronic obstructive pulmonary disease, unspecified R73.01 Impaired fasting glucose M51.37 Other intervertebral disc degeneration, lumbosacral region F02.80 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 elswhr w/o behavrl disturb F17.210 Nicotine dependence, cigarettes, uncomplicated F41.9 Anxiety disorder, unspecified F31.9 Bipolar disorder, unspecified M79.606 Pain in leg, unspecified M25.559 Pain in unspecified hip F33.9 Major depressive disorder, recurrent, unspecified M15.9 Polyosteoarthritis, unspecified M81.8 Other osteoporosis without current pathological fracture R55 Syncope and collapse L30.9 Dermatitis, unspecified L20.9 Atopic dermatitis, unspecified J30.9 Allergic rhinitis, unspecified R26.81 Unsteadiness on feet K21.0 Gastro-esophageal reflux disease with esophagitis K30 Functional dyspepsia H90.6 Mixed conductive and sensorineural hearing loss, bilateral G47.00 Insomnia, unspecified R60.0 Localized edema I71.4 Abdominal aortic aneurysm, without rupture N95.9 Unspecified menopausal and perimenopausal disorder K59.00 Constipation, unspecified E55.9 Vitamin D deficiency, unspecified R05 Cough R06.02 Shortness of breath M25.562 Pain in left knee R07.9 Chest pain, unspecified Office Visit 05/31/2018 2:30p [facility] Blayne Bravo I10 Essential ( primary) M., M.D. hypertension E03.9 Hypothyroidism, unspecified E78.2 Mixed hyperlipidemia I73.9 Peripheral vascular disease, unspecified I65.23 Occlusion and stenosis of bilateral carotid arteries J44.9 Chronic obstructive pulmonary disease, unspecified R73.01 Impaired fasting glucose M51.37 Other intervertebral disc degeneration, lumbosacral region F02.80 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 elswhr w/o behavrl disturb F17.210 Nicotine dependence, cigarettes, uncomplicated F41.9 Anxiety disorder, unspecified F31.9 Bipolar disorder, unspecified M79.606 Pain in leg, unspecified M25.559 Pain in unspecified hip F33.9 Major depressive disorder, recurrent, unspecified M15.9 Polyosteoarthritis, unspecified M81.8 Other osteoporosis without current pathological fracture R55 Syncope and collapse L30.9 Dermatitis, unspecified L20.9 Atopic dermatitis, unspecified J30.9 Allergic rhinitis, unspecified R26.81 Unsteadiness on feet K21.0 Gastro-esophageal reflux disease with esophagitis K30 Functional dyspepsia H90.6 Mixed conductive and sensorineural hearing loss, bilateral G47.00 Insomnia, unspecified R60.0 Localized edema I71.4 Abdominal aortic aneurysm, without rupture N95.9 Unspecified menopausal and perimenopausal disorder K59.00 Constipation, unspecified E55.9 Vitamin D deficiency, unspecified R05 Cough R06.02 Shortness of breath M25.562 Pain in left knee R07.9 Chest pain, unspecified H61.21 Impacted cerumen, right ear Assessments Date Code Description Provider 11/02/2018 I10 Essential (primary) hypertension Chivo Kelly N.PAndrea 11/02/2018 E03.9 Hypothyroidism, unspecified Chivo Kelly N.PAndrea 11/02/2018 E78.2 Mixed hyperlipidemia Chivo Kelly N.PAndrea 11/02/2018 I73.9 Peripheral vascular disease, unspecified Chivo Kelly N.PAndrea 11/02/2018 I65.23 Occlusion and stenosis of bilateral carotid Chivo Kelly N.PAndrea arteries 11/02/2018 J44.9 Chronic obstructive pulmonary disease, Chivo Kelly N.P. unspecified 11/02/2018 R73.01 Impaired fasting glucose Chivo Kelly N.PAndrea 11/02/2018 M51.37 Other intervertebral disc degeneration, Chivo Kelly N.P. lumbosacral region 11/02/2018 F02.80 Dementia in other diseases classified Chivo Kelly N.Jessica elsewhere without beha 11/02/2018 F17.210 Nicotine dependence, cigarettes, Chivo Kelly N.P. uncomplicated 11/02/2018 F41.9 Anxiety disorder, unspecified Chivo Kelly N.P. 11/02/2018 F31.9 Bipolar disorder, unspecified Chivo Kelly N.P. 11/02/2018 M79.606 Pain in leg, unspecified Chivo Kelly N.P. 11/02/2018 M25.559 Pain in unspecified hip Chivo Kelly N.P. 11/02/2018 F33.9 Major depressive disorder, recurrent, Chivo Kelly N.P. unspecified 11/02/2018 M15.9 Polyosteoarthritis, unspecified Chivo Kelly N.P. 11/02/2018 M81.8 Other osteoporosis without current Chivo Kelly N.PAndrea pathological fracture 11/02/2018 R55 Syncope and collapse Chivo Kelly N.PAndrea 11/02/2018 L30.9 Dermatitis, unspecified Chivo Kelly N.P. 11/02/2018 L20.9 Atopic dermatitis, unspecified Chivo Kelly N.P. 11/02/2018 J30.9 Allergic rhinitis, unspecified Chivo Kelly N.P. 11/02/2018 R26.81 Unsteadiness on feet Chivo Kelly N.P. 11/02/2018 K21.0 Gastro-esophageal reflux disease with Chivo Kelly N.PAndrea esophagitis 11/02/2018 K30 Functional dyspepsia Chivo Kelly N.PAndrea 11/02/2018 H90.6 Mixed conductive and sensorineural hearing Chivo Kelly N.PAndrea loss, bilateral 11/02/2018 G47.00 Insomnia, unspecified Chivo Kelly N.P. 11/02/2018 R60.0 Localized edema Chivo Kelly N.PAndrea 11/02/2018 I71.4 Abdominal aortic aneurysm, without rupture Chivo Kelly N.P. 11/02/2018 N95.9 Unspecified menopausal and perimenopausal Chivo Kelly N.PAndrea disorder 11/02/2018 K59.00 Constipation, unspecified Chivo Kelly N.P. 11/02/2018 E55.9 Vitamin D deficiency, unspecified Chivo Kelly N.P. 11/02/2018 R05 Cough Chivo Kelly, N.P. 11/02/2018 R06.02 Shortness of breath Chivo Kelly N.P. 11/02/2018 M25.562 Pain in left knee Chivo Kelly, N.P. 11/02/2018 R07.9 Chest pain, unspecified Chivo Kelly N.P. 11/02/2018 M79.672 Pain in left foot Chivo Kelly, N.P. 10/24/2018 I10 Essential (primary) hypertension Chivo Kelly, N.P. 10/24/2018 E03.9 Hypothyroidism, unspecified Chivo Kelly, N.P. 10/24/2018 E78.2 Mixed hyperlipidemia Chivo Kelly N.P. 10/24/2018 I73.9 Peripheral vascular disease, unspecified Chivo Kelly, N.P. 10/24/2018 I65.23 Occlusion and stenosis of bilateral carotid Chivo Kelly N.P. arteries 10/24/2018 J44.9 Chronic obstructive pulmonary disease, Chivo Kelly, N.P. unspecified 10/24/2018 R73.01 Impaired fasting glucose Chivo Kelly, N.P. 10/24/2018 M51.37 Other intervertebral disc degeneration, Chivo Kelly, N.P. lumbosacral region 10/24/2018 F02.80 Dementia in other diseases classified Chivo Kelly N.PAndrea elsewhere without beha 10/24/2018 F17.210 Nicotine dependence, cigarettes, Chivo Kelly N.P. uncomplicated 10/24/2018 F41.9 Anxiety disorder, unspecified Chivo Kelly N.P. 10/24/2018 F31.9 Bipolar disorder, unspecified Chivo Kelly N.P. 10/24/2018 M79.606 Pain in leg, unspecified Chivo Kelly N.P. 10/24/2018 M25.559 Pain in unspecified hip Chivo Kelly N.P. 10/24/2018 F33.9 Major depressive disorder, recurrent, Chivo Kelly N.P. unspecified 10/24/2018 M15.9 Polyosteoarthritis, unspecified Chivo Kelly N.P. 10/24/2018 M81.8 Other osteoporosis without current Chivo Kelly N.PAndrea pathological fracture 10/24/2018 R55 Syncope and collapse Chivo Kelly N.P. 10/24/2018 L30.9 Dermatitis, unspecified Chivo Kelly N.P. 10/24/2018 L20.9 Atopic dermatitis, unspecified Chivo Kelly N.P. 10/24/2018 J30.9 Allergic rhinitis, unspecified Chivo eKlly N.P. 10/24/2018 R26.81 Unsteadiness on feet Chivo Kelly N.P. 10/24/2018 K21.0 Gastro-esophageal reflux disease with Chivo Kelly N.PAndrea esophagitis 10/24/2018 K30 Functional dyspepsia Chivo Kelly N.P. 10/24/2018 H90.6 Mixed conductive and sensorineural hearing Chivo Kelly N.PAndrea loss, bilateral 10/24/2018 G47.00 Insomnia, unspecified Chivo Kelly N.P. 10/24/2018 R60.0 Localized edema Chivo Kelly N.P. 10/24/2018 I71.4 Abdominal aortic aneurysm, without rupture Chivo Kelly N.P. 10/24/2018 N95.9 Unspecified menopausal and perimenopausal Chivo Kelly N.P. disorder 10/24/2018 K59.00 Constipation, unspecified Chivo Kelly, N.P. 10/24/2018 E55.9 Vitamin D deficiency, unspecified Chivo Kelly, N.P. 10/24/2018 R05 Cough Chivo Kelly, N.P. 10/24/2018 R06.02 Shortness of breath Chivo Kelly N.P. 10/24/2018 M25.562 Pain in left knee Chivo Kelly N.P. 10/24/2018 R07.9 Chest pain, unspecified Chivo Kelly N.P. 10/05/2018 I10 Essential (primary) hypertension Chivo Kelly N.P. 10/05/2018 E03.9 Hypothyroidism, unspecified Chivo Kelly N.P. 10/05/2018 E78.2 Mixed hyperlipidemia Chivo Kelly N.P. 10/05/2018 I73.9 Peripheral vascular disease, unspecified Chivo Kelly N.P. 10/05/2018 I65.23 Occlusion and stenosis of bilateral carotid Chivo Kelly N.P. arteries 10/05/2018 J44.9 Chronic obstructive pulmonary disease, Chivo Kelly N.P. unspecified 10/05/2018 R73.01 Impaired fasting glucose Chivo Kelly N.P. 10/05/2018 M51.37 Other intervertebral disc degeneration, Chivo Kelly N.PAndrea lumbosacral region 10/05/2018 F02.80 Dementia in other diseases classified Chivo Kelly N.PAndrea elsewhere without beha 10/05/2018 F17.210 Nicotine dependence, cigarettes, Chivo Kelly, N.P. uncomplicated 10/05/2018 F41.9 Anxiety disorder, unspecified Chivo Kelly N.P. 10/05/2018 F31.9 Bipolar disorder, unspecified Chivo Kelly N.P. 10/05/2018 M79.606 Pain in leg, unspecified Chivo Kelly, N.P. 10/05/2018 M25.559 Pain in unspecified hip Chivo Kelly N.P. 10/05/2018 F33.9 Major depressive disorder, recurrent, Chivo Kelly N.P. unspecified 10/05/2018 M15.9 Polyosteoarthritis, unspecified Chivo Kelly N.P. 10/05/2018 M81.8 Other osteoporosis without current Chivo Kelly N.PAndrea pathological fracture 10/05/2018 R55 Syncope and collapse Chivo Kelly N.PAndrea 10/05/2018 L30.9 Dermatitis, unspecified Chivo Kelly N.P. 10/05/2018 L20.9 Atopic dermatitis, unspecified Chivo Kelly N.P. 10/05/2018 J30.9 Allergic rhinitis, unspecified Chivo Kelly N.P. 10/05/2018 R26.81 Unsteadiness on feet Chivo Kelly N.PAndrea 10/05/2018 K21.0 Gastro-esophageal reflux disease with Chivo Kelly N.PAndrea esophagitis 10/05/2018 K30 Functional dyspepsia Chivo Kelly N.PAndrea 10/05/2018 H90.6 Mixed conductive and sensorineural hearing Chivo Kelly N.PAndrea loss, bilateral 10/05/2018 G47.00 Insomnia, unspecified Chivo Kelly N.P. 10/05/2018 R60.0 Localized edema Chivo Kelly N.P. 10/05/2018 I71.4 Abdominal aortic aneurysm, without rupture Chivo Kelly N.P. 10/05/2018 N95.9 Unspecified menopausal and perimenopausal Chivo Kelly N.PAndrea disorder 10/05/2018 K59.00 Constipation, unspecified Chivo Kelly N.P. 10/05/2018 E55.9 Vitamin D deficiency, unspecified Chivo Kelly, N.P. 10/05/2018 R05 Cough Chivo Kelly, N.P. 10/05/2018 R06.02 Shortness of breath Chivo Kelly, N.P. 10/05/2018 M25.562 Pain in left knee Chivo Kelly, N.P. 10/05/2018 R07.9 Chest pain, unspecified Chivo Kelly, N.P. 09/03/2018 I10 Essential (primary) hypertension Chivo Kelly, N.P. 09/03/2018 E03.9 Hypothyroidism, unspecified Chivo Kelly, N.P. 09/03/2018 E78.2 Mixed hyperlipidemia Chivo Kelly, N.P. 09/03/2018 I73.9 Peripheral vascular disease, unspecified Chivo Kelly, N.P. 09/03/2018 I65.23 Occlusion and stenosis of bilateral carotid Chivo Kelly , N.P. arteries 09/03/2018 J44.9 Chronic obstructive pulmonary disease, Chivo Kelly N.P. unspecified 09/03/2018 R73.01 Impaired fasting glucose Chivo Kelly N.P. 09/03/2018 M51.37 Other intervertebral disc degeneration, Chivo Kelly, N.P. lumbosacral region 09/03/2018 F02.80 Dementia in other diseases classified Chivo Kelly N.PAndrea elsewhere without beha 09/03/2018 F17.210 Nicotine dependence, cigarettes, Chivo Kelly N.P. uncomplicated 09/03/2018 F41.9 Anxiety disorder, unspecified Chivo Kelly N.P. 09/03/2018 F31.9 Bipolar disorder, unspecified Chivo Kelly N.P. 09/03/2018 M79.606 Pain in leg, unspecified Chivo Kelly, N.P. 09/03/2018 M25.559 Pain in unspecified hip Chivo Kelly N.P. 09/03/2018 F33.9 Major depressive disorder, recurrent, Chivo Kelly N.P. unspecified 09/03/2018 M15.9 Polyosteoarthritis, unspecified Chivo Kelly, N.P. 09/03/2018 M81.8 Other osteoporosis without current Chivo Kelly N.PAndrea pathological fracture 09/03/2018 R55 Syncope and collapse Chivo Kelly N.P. 09/03/2018 L30.9 Dermatitis, unspecified Chivo Kelly N.P. 09/03/2018 L20.9 Atopic dermatitis, unspecified Chivo Kelly, N.P. 09/03/2018 J30.9 Allergic rhinitis, unspecified Chivo Kelly, N.P. 09/03/2018 R26.81 Unsteadiness on feet Chivo Kelly, N.P. 09/03/2018 K21.0 Gastro-esophageal reflux disease with Chivo Kelly N.PAndrea esophagitis 09/03/2018 K30 Functional dyspepsia Chivo Kelly N.P. 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 09/03/2018 R60.0 Localized edema Chivo Kelly N.P. 09/03/2018 I71.4 Abdominal aortic aneurysm, without rupture Chivo Kelly N.P. 09/03/2018 N95.9 Unspecified menopausal and perimenopausal Chivo Kelly N.P. disorder 09/03/2018 K59.00 Constipation, unspecified Chivo Kelly, N.P. 09/03/2018 E55.9 Vitamin D deficiency, unspecified Chivo Kelly, N.P. 09/03/2018 R05 Cough Chivo Kelly, N.P. 09/03/2018 R06.02 Shortness of breath Chivo Kelly N.P. 09/03/2018 M25.562 Pain in left knee Chivo Kelly N.P. 09/03/2018 R07.9 Chest pain, unspecified Chivo Kelly N.P. 2018 I10 Essential (primary) hypertension Blayne Bravo M.D. 2018 E03.9 Hypothyroidism, unspecified Blayne Bravo M.D. 2018 E78.2 Mixed hyperlipidemia Blayne Bravo M.D. 2018 I73.9 Peripheral vascular disease, unspecified Blayne Bravo M.D. 2018 I65.23 Occlusion and stenosis of bilateral carotid Blayne Bravo M.D. arteries 2018 J44.9 Chronic obstructive pulmonary disease, Blayne Bravo M.D. unspecified 2018 R73.01 Impaired fasting glucose Blayne Bravo M.D. 2018 M51.37 Other intervertebral disc degeneration, Blayne Bravo M.D. lumbosacral region 2018 F02.80 Dementia in other diseases classified Blayne Bravo M.D. elsewhere without beha 2018 F17.210 Nicotine dependence, cigarettes, Blayne Bravo M.D. uncomplicated 2018 F41.9 Anxiety disorder, unspecified Blayne Bravo M.D. 2018 F31.9 Bipolar disorder, unspecified Blayne Bravo M.D. 2018 M79.606 Pain in leg, unspecified Blayne Bravo M.D. 2018 M25.559 Pain in unspecified hip Blayne Bravo M.D. 2018 F33.9 Major depressive disorder, recurrent, Blayne Bravo M.D. unspecified 2018 M15.9 Polyosteoarthritis, unspecified Blayne Bravo M.D. 2018 M81.8 Other osteoporosis without current Blayne Bravo M.D. pathological fracture 2018 R55 Syncope and collapse Blayne Bravo M.D. 2018 L30.9 Dermatitis, unspecified Blayne Bravo M.D. 2018 L20.9 Atopic dermatitis, unspecified Blayne Bravo M.D. 2018 J30.9 Allergic rhinitis, unspecified Blayne Bravo M.D. 2018 R26.81 Unsteadiness on feet Blayne Bravo M.D. 2018 K21.0 Gastro-esophageal reflux disease with Blayne Bravo M.D. esophagitis 2018 K30 Functional dyspepsia Blayne Bravo M.D. 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 loss, bilateral 2018 G47.00 Insomnia, unspecified Blayne Bravo M.D. 2018 R60.0 Localized edema Blayne Bravo M.D. 2018 I71.4 Abdominal aortic aneurysm, without rupture Blayne Bravo M.D. 2018 N95.9 Unspecified menopausal and perimenopausal Blayne Bravo M.D. disorder 2018 K59.00 Constipation, unspecified Blayne Bravo M.D. 2018 E55.9 Vitamin D deficiency, unspecified Blayne Bravo M.D. 2018 R05 Cough Blayne Bravo M.D. 2018 R06.02 Shortness of breath Blayne Bravo M.D. 2018 M25.562 Pain in left knee Blayne Bravo M.D. 2018 R07.9 Chest pain, unspecified Blayne Bravo M.D. 05/31/2018 I10 Essential (primary) hypertension Blayne Bravo M.D. 05/31/2018 E03.9 Hypothyroidism, unspecified Blayne Bravo M.D. 05/31/2018 E78.2 Mixed hyperlipidemia Blayne Bravo M.D. 05/31/2018 I73.9 Peripheral vascular disease, unspecified Blayne Bravo M.D. 05/31/2018 I65.23 Occlusion and stenosis of bilateral carotid Blayne Bravo M.D. arteries 05/31/2018 J44.9 Chronic obstructive pulmonary diseaseLawrence Ahmad M., M.D. unspecified 05/31/2018 R73.01 Impaired fasting glucose Blayne Bravo M.D. 05/31/2018 M51.37 Other intervertebral disc degeneration, Blayne Bravo M.D. lumbosacral region 05/31/2018 F02.80 Dementia in other diseases classified Blayne Bravo M.D. elsewhere without beha 05/31/2018 F17.210 Nicotine dependence, cigarettes, Blayne Bravo M.D. uncomplicated 05/31/2018 F41.9 Anxiety disorder, unspecified Blayne Bravo M.D. 05/31/2018 F31.9 Bipolar disorder, unspecified Blayne Bravo M.D. 05/31/2018 M79.606 Pain in leg, unspecified Blayne Bravo M.D. 05/31/2018 M25.559 Pain in unspecified hip Blayne Bravo M.D. 05/31/2018 F33.9 Major depressive disorder, recurrent, Blayne Bravo M.D. unspecified 05/31/2018 M15.9 Polyosteoarthritis, unspecified Blayne Bravo M.D. 05/31/2018 M81.8 Other osteoporosis without current Blayne Bravo M.D. pathological fracture 05/31/2018 R55 Syncope and collapse Blayne Bravo M.D. 05/31/2018 L30.9 Dermatitis, unspecified Blayne Bravo M.D. 05/31/2018 L20.9 Atopic dermatitis, unspecified Blayne Bravo M.D. 05/31/2018 J30.9 Allergic rhinitis, unspecified Blayne Bravo M.D. 05/31/2018 R26.81 Unsteadiness on feet Blayne Bravo M.D. 05/31/2018 K21.0 Gastro-esophageal reflux disease with Blayne Bravo M.D. esophagitis 05/31/2018 K30 Functional dyspepsia Blayne Bravo M.D. 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 loss, bilateral 05/31/2018 G47.00 Insomnia, unspecified Blayne Bravo M.D. 05/31/2018 R60.0 Localized edema Blayne Bravo M.D. 05/31/2018 I71.4 Abdominal aortic aneurysm, without rupture Blayne Bravo M.D. 05/31/2018 N95.9 Unspecified menopausal and perimenopausal Blayne Bravo M.D. disorder 05/31/2018 K59.00 Constipation, unspecified Blayne Bravo M.D. 05/31/2018 E55.9 Vitamin D deficiency, unspecified Blayne Bravo M.D. 05/31/2018 R05 Cough Blayne Bravo M.D. 05/31/2018 R06.02 Shortness of breath Blayne Bravo M.D. 05/31/2018 M25.562 Pain in left knee Blayne Bravo M.D. 05/31/2018 R07.9 Chest pain, unspecified Blayne Bravo M.D. 05/31/2018 H61.21 Impacted cerumen, right ear Blayne Bravo M.D. Plan of Treatment Future Appointment(s):11/23/2018 11:00 am - Chivo Kelly N.P. at [facility] Functional Status Description No Information Available Mental Status Description No Information Available Referrals Description No Information Available
--- OUTSIDE RECORDS SUMMARY | 2018-12-18 16:36 | XMS REPORT | Continuity of Care Document ---
:1935 External Reference #:[id number] Author Name Chivo Kelly N.P. Address [address] [place] [address] [address] [place] [address] Care Team Providers Name Role Phone Blayne Bravo MD - Family Medicine Care Team Information [facility] [phone] Problems Active Problems Provider Date Bipolar disorder Luis Alberto Xavier CAMP DIRECTOR Onset: 09/23/2015 Low blood pressure Luis Alberto Xavier CAMP DIRECTOR Onset: 09/23/2015 Anxiety state Luis Alberto Xavier CAMP DIRECTOR Onset: 09/24/2015 Depressive disorder Luis Alberto Xavier CAMP DIRECTOR Onset: 09/24/2015 Hypothyroidism Luis Alberto Xavier CAMP DIRECTOR Onset: 09/24/2015 Chronic low back pain Luis Alberto Xavier CAMP DIRECTOR Onset: 09/24/2015 Loss of appetite Luis Alberto Xavier CAMP DIRECTOR Onset: 09/24/2015 Tobacco user Luis Alberto Xavier CAMP DIRECTOR Onset: 09/24/2015 Chronic obstructive lung disease Luis Alberto Xavier CAMP DIRECTOR Onset: 09/24/2015 Closed fracture of surgical neck of right humerus Luis Alberto Xavier CAMP DIRECTOR Onset: Social History Type Date Description Comments [...] Medications SIG Qnty Indications Ordering Provider Date Atorvastatin Calcium take one tablet 30tabs E78.2 Blayne Bravo, 2018 by mouth at M.D. 20mg Tablets bedtime Ranitidine 150 1 tab by mouth 180tabs K21.0 Blayne Bravo, 09/03/2018 Maximum Strength twice a day M.D. 150mg Tablets Omeprazole 1 by mouth every 30caps L30.9 [facility] luly Gallegos, 09/03/2018 20mg day M.D. Capsules DR K21.0 Tylenol Extra Strength 2 tabs by mouth 180tabs M79.606 [facility] luly Gallegos, three times a day as M.D. 500mg Tablets directed. max daily dose of tylenol from all sources to not exceed 4000mg Aleve 1 tab by mouth twice 60tabs M79.606 [facility] 220mg Tablets a day with food M.D. Alendronate Sodium 1 tab by mouth every 14tabs M81.8 [facility], 10/2017 40mg week M.D. Tablets Hydrocodone-Acetaminop 1 tab by mouth four 60tabs M51.37 [facility] hen times a day as M.D. 5-325mg Tablets needed M79.606 M51.37 Miralax 1-2 caps by mouth 1020gm K59.00 LawrenceBlayne gusman, 11/04/2016 3350NF Powder every day M.D. Estradiol 1 skin every week 12units N95.9 [facility] 0.1mg/24HR M.D. Patches Weekly Fluoxetine HCL Take 2 Capsules By 90caps E03.9 LawrenceBlayne gusman, 09/30/2016 20mg Mouth In The Morning M.D. Capsules And 1 Tablet AT Night F41.9 F33.9 Lisinopril take 1 tablet by 90tabs I10 LawrenceBlayne gusman, 07/15/2016 20mg Tablets mouth once daily M.D. Zoloft 1 tab by mouth every 90tabs F31.9 LawrenceBlayne gusman, 06/21/2016 100mg Tablets evening M.D. F41.9 F33.9 Aspirin Take 2 Tablet By Mouth Once I65.[address] Daily For Prevention I73.9 Levothyroxine Sodium take 1 tablet by 90tabs E03.9 Blayne Bravo, 00/00/ 0000 100mcg mouth once daily M.D. Tablets Medications Administered in Office Medication SIG Qnty Indications Ordering Provider Date Admin Of Pneumovax Luis Alberto Xaveir CAMP DIRECTOR 09/30/2015 Injection Immunizations CPT Code Status Date Vaccine Lot # [id number] Given 12/12/2017 Flu Vaccine 3+Yrs Old(Fluzone) [id number] Given 12/13/2016 Flu Vaccine 3+Yrs Old(Fluzone) [id number] Given 12/17/2015 Flu Vaccine 3+Yrs Old(Fluzone) [id number] Given 09/30/2015 Pneumovax 11593 Vital Signs Date Vital Result Comment 10/24/2018 11:02am BP Systolic 156 mmHg BP Diastolic 72 mmHg Height 62 inches 5'2" Weight 126.00 lb BMI (Body Mass Index) 23.0 kg/m2 Heart Rate 90 /min Respiratory Rate 16 /min 10/05/2018 9:02am BP Systolic 132 mmHg BP Diastolic 88 mmHg Height 62 inches 5'2" Weight 124.00 lb BMI (Body Mass Index) 22.7 kg/m2 Heart Rate 82 /min Respiratory Rate 16 /min Results Test Date Facility Test Result H/L Range Note CBC With Diff 10/05/2018 [facility] WBC 6.5 10*3/uL (4.1-11.0) [address] [facility] (607)- - RBC 4.89 10*6/uL (4.00-5.40) HGB 14.0 g/dL (12.0-16.0) HCT 42.2 % (36.0-47.0) MCV 86.3 fL (80.0-95.0) MCH 28.5 pg (27.0-32.0) MCHC 33.1 g/dL (32.0-36.0) RDW 15.9 % High (10.5-14.5) PLT 176 10*3/uL (150-450) MPV 8.7 fL (7.1-10.7) Neut % 69.9 % (35.0-75.0) Lymph % 19.8 % (16.0-52.0) Clarke % 7.0 % (0.0-8.0) Eos % 2.5 % (0.0-5.0) Baso % 0.8 % (0.0-4.0) Neut # 4.6 10*3/uL (1.8-7.7) Lymph # 1.3 10*3/uL (1.2-4.8) Clarke # 0.5 10*3/uL (0.0-0.8) Eos # 0.2 10*3/uL (0.0-0.5) Baso # 0.1 10*3/uL (0.0-0.2) CMP 10/05/2018 [facility] Sodium 141 mmol/L (136-145) [address] [facility] [...] >60 ml/min/1.73m2 (>59) GFR Interpretation <SEE NOTE> 1 Laboratory test 10/05/2018 [facility] Free Thyroxine 1.08 ng/dL (0.76- 1.46) finding [address] [facility] @ (607)- - TSH,Ultrasensitive @ 0.782 mIU/L (0.360-4.170) Lipid 10/05/2018 [facility] Cholesterol @ 269 mg/dL High (0-200) [facility] (607)- - Triglyceride @ 218 mg/dL High (30-200) HDL Cholesterol @ 51 mg/dL (>40) 2 Chol/HDL Ratio 5.3 RATIO 3 LDL Chol (Calc) 174 mg/dL High (<130) 4 Laboratory test finding 10/05/2018 [facility] Esr 6 mm/h (0-30) [facility] (607)- - 25 Hydroxy Vit D @ 29 ng/mL Low (31-100) 5 1 NORMAL KIDNEY FUNCTION OR MILD DISEASE - GFR >OR= 60 CHRONIC KIDNEY DISEASE - GFR 15 - 59 RENAL FAILURE - GFR <15 Est. GFR calculation based on the MDRD study equation, which assumes a steady state for creatinine. Est. GFR should not be used for medication dosing. 2 PER NCEP ATP III GUIDELINES: RESULTS LOWER THAN 40 MG/DL ARE SUGGESTIVE OF INCREASED RISK FOR CORONARY ARTERY DISEASE. RESULTS > OR = TO 60 MG/DL ARE CONSIDERED A NEGATIVE RISK FACTOR. 3 INTERPRETATION OF CHOL-HDL RATIO CHD RISK FEMALE MALE VERY HIGH >8.3 >14.3 HIGH 5.6- 8.3 6.7- 14.3 AVERAGE 3.7- 5.6 4.0- 6.7 BELOW AVERAGE 2.5- 3.7 2.7- 4.0 PROTECTED <2.5 <2.7 4 PER NCEP ATP III GUIDELINES: OPTIMAL < 100 NEAR OPTIMAL 100 - 129 BORDERLINE HIGH 130 - 159 HIGH 160 - 189 VERY HIGH > 189 5 A REVIEW OF THE LITERATURE SUGGESTS THE FOLLOWING RANGES FOR THE CLASSIFICATION OF 25-OH VITAMIN D STATUS: VITAMIN D STATUS 25-OH VITAMIN D DEFICIENCY <20 NG/ML INSUFFICIENCY 20-30 NG/ML SUFFICIENCY 31 - 100 NG/ML TOXICITY > 100 NG/ML A PEDIATRIC REFERENCE RANGE HAS NOT BEEN ESTABLISHED USING THIS METHOD. Procedures Date Code Description Status 05/31/2018 07399 Ear Irrigation Completed 02/20/2014 [id number] Mammogram Completed Medical Devices Description No Information Available Encounters Type Date Location Provider Dx Diagnosis Office Visit 10/24/2018 [place] [facility] Chivo Kelly, I10 Essential ( primary) 11:00a N.P. hypertension E03.9 Hypothyroidism, unspecified E78.2 Mixed [...] Chest pain, unspecified Office Visit 10/05/2018 8:45a [place] [facility] Chivo Kelly, I10 Essential (primary) N.P. [...] Chest pain, unspecified Office Visit 09/03/2018 1:00p [place] [facility] Chivo Kelly, I10 Essential (primary) N.P. hypertension E03.9 Hypothyroidism, unspecified E78.2 Mixed hyperlipidemia I73.9 Peripheral vascular disease, unspecified I65.23 Occlusion and stenosis of bilateral carotid arteries J44.9 Chronic obstructive pulmonary disease, unspecified R73.01 Impaired fasting glucose M51.37 Other intervertebral disc degeneration, lumbosacral region F02.80 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 elsr w/o behavrl disturb F17.210 Nicotine dependence, cigarettes, [...] Chest pain, unspecified Office Visit 2018 3:00p [place] [facility] Blayne Bravo I10 Essential ( primary) [...] Chest pain, unspecified Office Visit 05/31/2018 2:30p [place] [facility] Blayne Bravo I10 Essential ( primary) [...] right ear Assessments Date Code Description Provider 10/24/2018 I10 Essential (primary) hypertension Chivo Kelly N.PAndrea 10/24/2018 E03.9 Hypothyroidism, unspecified Chivo Kelly N.PAndrea 10/24/2018 E78.2 Mixed hyperlipidemia Chivo Kelly N.PAndrea 10/24/2018 I73.9 Peripheral vascular disease, unspecified Chivo Kelly N.PAndrea 10/24/2018 I65.23 Occlusion and stenosis of bilateral carotid Chivo Kelly N.PAndrea arteries 10/24/2018 J44.9 Chronic obstructive pulmonary disease, Chivo Kelly N.P. 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 lumbosacral region 10/24/2018 F02.80 Dementia in other diseases classified Chivo Kelly N.PAndrea elsewhere without beha 10/24/2018 F17.210 Nicotine dependence, cigarettes, Chivo Kelly N.P. uncomplicated 10/24/2018 F41.9 Anxiety disorder, unspecified Chivo Kelly, N.P. 10/24/2018 F31.9 Bipolar disorder, unspecified Chivo Kelly N.P. 10/24/2018 M79.606 Pain in leg, unspecified Chivo Kelly N.P. 10/24/2018 M25.559 Pain in unspecified hip Chivo Kelly N.P. 10/24/2018 F33.9 Major depressive disorder, recurrent, Chivo Kelly N.P. unspecified 10/24/2018 M15.9 Polyosteoarthritis, unspecified Chivo Kelly, N.P. 10/24/2018 M81.8 Other osteoporosis without current Chivo Kelly N.PAndrea pathological fracture 10/24/2018 R55 Syncope and collapse Chivo Kelly N.P. 10/24/2018 L30.9 Dermatitis, unspecified Chivo Kelly, N.P. 10/24/2018 L20.9 Atopic dermatitis, unspecified Chivo Kelly N.P. 10/24/2018 J30.9 Allergic rhinitis, unspecified Chivo Kelly N.P. 10/24/2018 R26.81 Unsteadiness on feet Chivo Kelly N.P. 10/24/2018 K21.0 Gastro-esophageal reflux disease with Chivo Kelly N.PAndrea esophagitis 10/24/2018 K30 Functional dyspepsia Chivo Kelly N.P. 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 10/24/2018 R60.0 Localized edema Chivo Kelly N.P. 10/24/2018 I71.4 Abdominal aortic aneurysm, without rupture Chivo Kelly N.P. 10/24/2018 N95.9 Unspecified menopausal and perimenopausal Chivo Kelly N.P. disorder 10/24/2018 K59.00 Constipation, unspecified Chivo Kelly N.P. 10/24/2018 E55.9 Vitamin D deficiency, unspecified Chivo Kelly N.P. 10/24/2018 R05 Cough Chivo Kelly, N.P. 10/24/2018 R06.02 Shortness of breath Chivo Kelly, N.P. 10/24/2018 M25.562 Pain in left knee Chivo Kelly, N.P. 10/24/2018 R07.9 Chest pain, unspecified Chivo Kelly, N.P. 10/05/2018 I10 Essential (primary) hypertension Chivo Kelly, N.P. 10/05/2018 E03.9 Hypothyroidism, unspecified Chivo Kelly, N.P. 10/05/2018 E78.2 Mixed hyperlipidemia Chivo Kelly, N.P. 10/05/2018 I73.9 Peripheral vascular disease, unspecified Chivo Kelly, N.P. 10/05/2018 I65.23 Occlusion and stenosis of bilateral carotid Chivo Kelly , N.P. arteries 10/05/2018 J44.9 Chronic obstructive pulmonary disease, Chivo Kelly N.P. unspecified 10/05/2018 R73.01 Impaired fasting glucose Chivo Kelly N.P. 10/05/2018 M51.37 Other intervertebral disc degeneration, Chivo Kelly, N.P. lumbosacral region 10/05/2018 F02.80 Dementia in other diseases classified Chivo Kelly, N.PAndrea elsewhere without beha 10/05/2018 F17.210 Nicotine dependence, cigarettes, Chivo Kelly, N.P. uncomplicated 10/05/2018 F41.9 Anxiety disorder, unspecified Chivo Kelly N.P. 10/05/2018 F31.9 Bipolar disorder, unspecified Chivo Kelly N.P. 10/05/2018 M79.606 Pain in leg, unspecified Chivo Kelly N.P. 10/05/2018 M25.559 Pain in unspecified hip Chivo Kelly N.P. 10/05/2018 F33.9 Major depressive disorder, recurrent, Chivo Kelly, N.P. unspecified 10/05/2018 M15.9 Polyosteoarthritis, unspecified Chivo Kelly, N.P. 10/05/2018 M81.8 Other osteoporosis without current Chivo Kelly, N.PAndrea pathological fracture 10/05/2018 R55 Syncope and collapse Chivo Kelly N.P. 10/05/2018 L30.9 Dermatitis, unspecified Chivo Kelly, N.P. 10/05/2018 L20.9 Atopic dermatitis, unspecified Chivo Kelly N.P. 10/05/2018 J30.9 Allergic rhinitis, unspecified Chivo Kelly N.P. 10/05/2018 R26.81 Unsteadiness on feet Chivo Kelly N.P. 10/05/2018 K21.0 Gastro-esophageal reflux disease with Chivo Kelly N.PAndrea esophagitis 10/05/2018 K30 Functional dyspepsia Chivo Kelly N.P. 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 10/05/2018 R60.0 Localized edema Chivo Kelly N.P. 10/05/2018 I71.4 Abdominal aortic aneurysm, without rupture Chivo Kelly N.P. 10/05/2018 N95.9 Unspecified menopausal and perimenopausal Chivo Kelly N.P. disorder 10/05/2018 K59.00 Constipation, unspecified Chivo Kelly N.P. 10/05/2018 E55.9 Vitamin D deficiency, unspecified Chivo Kelly, N.P. 10/05/2018 R05 Cough Chivo Kelly, N.P. 10/05/2018 R06.02 Shortness of breath Chivo Kelly N.P. 10/05/2018 M25.562 Pain in left knee Chivo Kelly N.P. 10/05/2018 R07.9 Chest pain, unspecified Chivo Kelly N.P. 09/03/2018 I10 Essential (primary) hypertension Chivo Kelly N.P. 09/03/2018 E03.9 Hypothyroidism, unspecified Chivo Kelly N.P. 09/03/2018 E78.2 Mixed hyperlipidemia Chivo Kelly N.P. 09/03/2018 I73.9 Peripheral vascular disease, unspecified Chivo Kelly N.P. 09/03/2018 I65.23 Occlusion and stenosis of bilateral carotid Chivo Kelly N.PAndrea arteries 09/03/2018 J44.9 Chronic obstructive pulmonary disease, Chivo Kelly N.P. unspecified 09/03/2018 R73.01 Impaired fasting glucose Chivo Kelly N.P. 09/03/2018 M51.37 Other intervertebral disc degeneration, Chivo Kelly N.P. lumbosacral region 09/03/2018 F02.80 Dementia in other diseases classified Chivo Kelly N.P. elsewhere without beha 09/03/2018 F17.210 Nicotine dependence, cigarettes, Chivo Kelly N.P. uncomplicated 09/03/2018 F41.9 Anxiety disorder, unspecified Chivo Kelly, N.P. 09/03/2018 F31.9 Bipolar disorder, unspecified Chivo Kelly N.P. 09/03/2018 M79.606 Pain in leg, unspecified Chivo Kelly, N.P. 09/03/2018 M25.559 Pain in unspecified hip Chivo Kelly, N.P. 09/03/2018 F33.9 Major depressive disorder, recurrent, Chivo Kelly N.P. unspecified 09/03/2018 M15.9 Polyosteoarthritis, unspecified Chivo Kelly N.P. 09/03/2018 M81.8 Other osteoporosis without current Chivo Kelly N.PAndrea pathological fracture 09/03/2018 R55 Syncope and collapse Chivo Kelly N.P. 09/03/2018 L30.9 Dermatitis, unspecified Chivo Kelly N.P. 09/03/2018 L20.9 Atopic dermatitis, unspecified Chivo Kelly N.P. 09/03/2018 J30.9 Allergic rhinitis, unspecified Chivo Kelly N.P. 09/03/2018 R26.81 Unsteadiness on feet Chivo Kelly N.P. 09/03/2018 K21.0 Gastro-esophageal reflux disease with Chivo Klely N.PAndrea esophagitis 09/03/2018 K30 Functional dyspepsia Chivo Kelly N.P. 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 09/03/2018 R60.0 Localized edema Chivo Kelly N.P. 09/03/2018 I71.4 Abdominal aortic aneurysm, without rupture Chivo Kelly N.P. 09/03/2018 N95.9 Unspecified menopausal and perimenopausal Chivo Kelly, N.P. disorder 09/03/2018 K59.00 Constipation, unspecified Chivo Kelly N.P. 09/03/2018 E55.9 Vitamin D deficiency, unspecified Chivo Kelly N.P. 09/03/2018 R05 Cough Chivo Kelly N.P. 09/03/2018 R06.02 Shortness of breath Chivo Kelly, N.P. 09/03/2018 M25.562 Pain in left knee Chivo Kelly, N.P. 09/03/2018 R07.9 Chest pain, unspecified Chivo Kelly, N.P. 2018 I10 Essential (primary) hypertension Blayne [...] M.D. arteries 05/31/2018 J44.9 Chronic obstructive pulmonary disease, Blayne Bravo M.D. unspecified 05/31/2018 R73.01 Impaired fasting glucose [...] 11:00 am - Chivo Kelly N.P. at [place] Igsftj0510/24/2018 - Chivo Kelly NAndreaPAndreaI10 Essential (primary) hypertensionComments:CHECK BP TIW ( PRN)F/U LABDIET AND FLUID COUNSELING LOW SODIUM DIETWT LOSSFollow up:1 smphtmE55.9 Hypothyroidism, unspecifiedComments: RX REVIEWED AND UPDATEDF/U TSH/ FT4E78.2 Mixed hyperlipidemiaNew Medication: Atorvastatin Calcium 20 mg - take one tablet by mouth at bedtimeComments:DIET REVIEWED CONTINUE DIETWT LOSSF/U LAB FBWI73.9 Peripheral vascular disease, unspecifiedComments:SKIN CARE FOOT CARE PODIATRY PRN CARE SMOKING EMBBQERKRT61.23 Occlusion and stenosis of bilateral carotid arteriesComments: STABLE AND ASYMPTOMATIC F/U WITH SURGERY WITH YEARLY CAROTID U/SJ44.9 Chronic obstructive pulmonary disease, kwipirfeqyzD97.01 Impaired fasting glucoseComments:F/U HGAICFS QAC AN HS PRNLOW GLUCOSE DIETM51.37 Other intervertebral disc degeneration, lumbosacral regionComments:EXERCISE/HEAT / MESSAGEAVOID HEAVY LIFTING WT LOSSTYLENOL OR MOTRIN PRN DUR CHECKED EXERCISE/HEAT /MESSAGEAVOID HEAVY LIFTING WT LOSSTYLENOL OR MOTRIN PRN DUR ETPCDQSJ57.80 Dementia in other diseases classified elsewhere without behaComments:COUNCELLING AND REASSURANCE LTC PLANS DISSCUSED WITH PT / FAMILY SAFETY COUNCELLING AND REASSURANCE LTC PLANS DISSCUSED WITH PT / FAMILY VEWCUMB82.210 Nicotine dependence, cigarettes, uncomplicatedComments:SMOKING CESSATION COUNCELLING SMOKING CESSATION HCZVXEYAPFOL00.9 Anxiety disorder, unspecifiedComments:COUNCELLING AND REASSURANCE RELAXATION TECHNIQUESSTRESSORS IN LIFE AVOID ALL ENERGY/HIGH CAFFEINE DRINKS DUR CHECKED COUNCELLING AND REASSURANCE RELAXATION TECHNIQUESSTRESSORS IN LIFE AVOID ALL ENERGY/HIGH CAFFEINE DRINKS DUR MUUMMQIN90.9 Bipolar disorder, unspecifiedComments: COUNSELING AND REASSURANCE CONTINUE PRESCRIBED MEDICATIONS RELAXATION TECHNIQUES DISCUSSED COUNSELEDRE: STRESSORS IN LIFE COUNSELING AND REASSURANCE CONTINUE PRESCRIBED MEDICATIONS RELAXATION TECHNIQUES DISCUSSED COUNSELED RE: STRESSORS IN LIFEM79.606 Pain in leg, unspecifiedComments:TYLENOL OR MOTRIN PRN EXERCISE/HEAT/MESSAGE DUR CHECKED TYLENOL OR MOTRIN PRN EXERCISE/HEAT/MESSAGE DUR RJXUNWOS65.559 Pain in unspecified hipComments:EXERCISE/HEAT/ MESSAGETYLENOL OR MOTRIN PRNAVOID HEAVY LIFTINGWT LOSS DUR CHECKED EXERCISE /HEAT/MESSAGETYLENOL OR MOTRIN PRNAVOID HEAVY LIFTINGWT LOSS DUR RNZOEBKZ93.9 Major depressive disorder, recurrent, unspecifiedComments: COUNCELLING AND REASSURANCE RELAXATION TECHNIQUES DISCUSSED COUNSELED RE: STRESSORS IN LIFE COUNCELLING AND REASSURANCE RELAXATION TECHNIQUES DISCUSSED COUNSELED RE: STRESSORS IN LIFEM15.9 Polyosteoarthritis, unspecifiedComments: EXERCISE/HEAT/MESSAGETYLENOL OR MOTRIN PRNAVOID HEAVY LIFTINGWT LOSS DUR CHECKED EXERCISE/HEAT/MESSAGETYLENOL OR MOTRIN PRNAVOID HEAVY LIFTINGWT LOSS DUR TTZOWHGW01.8 Other osteoporosis without current pathological fractureComments:EXERCISESCALCIUM SUPPLEMENT EXERCISESCALCIUM [id number] Syncope and collapseComments:OBSERVE SAFETYCOUNCELLING AND REASSURANCE OBSERVE SAFETYCOUNCELLING AND GGNNCTTUHLCC40.9 Dermatitis, unspecifiedComments:SKIN CARE INSTRUCTIONS LOTION OR BABY OIL 2-3 APPLICATION PER DAYUSE MOISTURIZING SOAPAVOID PROLONGED WATER EXPOSUREAVOID USING HOT WATER IN SHOWER SKIN CARE INSTRUCTIONS LOTION OR BABY OIL 2-3 APPLICATION PER DAYUSE MOISTURIZING SOAPAVOID PROLONGED WATER EXPOSUREAVOID USING HOT WATER IN GKBHOHR60.9 Atopic dermatitis, unspecifiedComments:SKIN CARE INSTRUCTIONS LOTION OR BABY OIL 2-3 APPLICATION PER DAYUSE MOISTURIZING SOAPAVOID PROLONGED WATER EXPOSUREAVOID USING HOT WATER IN SHOWER SKIN CARE INSTRUCTIONS LOTION OR BABY OIL 2-3 APPLICATION PER DAYUSE MOISTURIZING SOAPAVOID PROLONGED WATER EXPOSUREAVOID USING HOT WATER IN RHBQVQH10.9 Allergic rhinitis, unspecifiedComments:INCREASE PO FLUID USE ANTIHISTAMINE PRN SECOND HAND SMOKING AVOIDANCE SMOKING CESSATION INCREASE PO FLUID USE ANTIHISTAMINE PRN SECOND HAND SMOKING AVOIDANCE SMOKING ETFUADXZAI75.81 Unsteadiness on feetComments:SAFETY CLEAR PATH @ HOMEAVOID USE OF LOOSE RUGSUSE CANE /WALKER NEEDEDPROVIDE ADEQUATE LIGHT @ HOMEUSE WELL FITTED SHOESCONSIDER USE OF REMOTE CALLING DEVICEARRANGE FOR REGURAL CHECK UP BY FAMILY ORFRIENDS USE CANE SAFETY CLEAR PATH @ HOMEAVOID USE OF LOOSE RUGSUSE CANE /WALKER NEEDEDPROVIDE ADEQUATE LIGHT @ HOMEUSE WELL FITTED SHOESCONSIDER USE OF REMOTE CALLING DEVICEARRANGE FOR REGURAL CHECK UP BY FAMILY OR FRIENDS USE CANEK21.0 Gastro-esophageal reflux disease with esophagitisComments:AVOID CAFFEINE, ETOH AND SPICY FOODSTUMS OR MYLANTA PRN CALL WITH PROBLEMS OR CONCERNSTOBACCO USE [id number] Functional dyspepsiaComments:AVOID CAFFEINE, ETOH AND SPICY FOODSTUMS OR MYLANTA PRN CALL WITH PROBLEMS OR CONCERNSTOBACCO USE VDAENKASQP73.6 Mixed conductive and sensorineural hearing loss, bilateralComments:OBSERVE F/U WITH ENT PRN SMOKING KAPIAFLBGV21.00 Insomnia, unspecifiedComments:COUNCELLING AND REASSURANCE RELAXATION TECHNIQUES DISCUSSED COUNSELED RE: STRESSORS IN LIFE TYLENOLPM OR MOTRIN PM PRN DUR LYZETERI07.0 Localized edemaComments:ELEVATE LE PRNELASTIC STOCKING / CHERELLE WRAP PRNF/U LABI71.4 Abdominal aortic aneurysm, without ruptureComments:CALL 911 UNRULY WITH ANY ABD OR BACK PAIN F/U U/S Q 6-12 KKXGVKI96.9 Unspecified menopausal and perimenopausal disorderComments: COUNCELLING AND FOLIWDOBRMINENQT08.00 Constipation, unspecifiedComments:MOM OR MIRALAX PRNHIGH FIBER DIETINCREASE PO CHAHID40.9 Vitamin D deficiency, unspecifiedComments:INCREASE EXPOSURE TO SUNREVIEW OF DIETR05 CoughComments: INCREASE CLEAR LIQUIDSSTEAMGARGLE WARM SALT H2O TID ROBITUSSIN DM PRN SMOKING CESSATION TZCMZYEUZBRO15.02 Shortness of breathComments:INCREASE PO FLUIDRESTSMOKING DTSUMWQBCI98.562 Pain in left kneeComments:EXERCISE/HEAT / MESSAGEAVOID HEAVY LIFTING WT LOSSTYLENOL OR MOTRIN PRNR07.9 Chest pain, unspecifiedComments:RESOLVED DECLINE CARDIOLOGY REFERAL Functional Status Description No Information Available Mental Status Description No Information Available Referrals Description No Information Available
--- OUTSIDE RECORDS SUMMARY | 2018-12-18 16:36 | XMS REPORT | Continuity of Care Document ---
:1935 External Reference #:[id number] Author Name Chivo Kelly N.P. Address [address] [place] [address] [address] [place] [address] Care Team Providers Name Role Phone Blayne Bravo MD - Family Medicine Care Team Information Sales Intern Problems Active Problems Provider Date Bipolar disorder Luis Alberto Xavier SURGICAL DEVICE SALES REPRESENTATIVE Onset: 09/23/2015 Low blood pressure Luis Alberto Xavier SURGICAL DEVICE SALES REPRESENTATIVE Onset: 09/23/2015 Anxiety state Luis Alberto Xavier SURGICAL DEVICE SALES REPRESENTATIVE Onset: 09/24/2015 Depressive disorder Luis Alberto Xavier SURGICAL DEVICE SALES REPRESENTATIVE Onset: 09/24/2015 Hypothyroidism Luis Alberto Xavier SURGICAL DEVICE SALES REPRESENTATIVE Onset: 09/24/2015 Chronic low back pain Luis Alberto Xavier SURGICAL DEVICE SALES REPRESENTATIVE Onset: 09/24/2015 Loss of appetite Luis Alberto Xavier SURGICAL DEVICE SALES REPRESENTATIVE Onset: 09/24/2015 Tobacco user Luis Alberto Xavier SURGICAL DEVICE SALES REPRESENTATIVE Onset: 09/24/2015 Chronic obstructive lung disease Luis Alberto Xavier SURGICAL DEVICE SALES REPRESENTATIVE Onset: 09/24/2015 Closed fracture of surgical neck of right humerus Luis Alberto Xavier SURGICAL DEVICE SALES REPRESENTATIVE Onset: Social History Type Date Description Comments [...] Medications SIG Qnty Indications Ordering Provider Date Cimetidine 1 tab by mouth 60tabs Blayne Bravo, 11/05/2018 300mg Tablets twice a day as M.D. needed Ibuprofen 1 by mouth three 90tabs M79.672 Blayne Bravo, 11/02/2018 800mg Tablets times a day as M.D. needed Atorvastatin Calcium take one tablet 30tabs E78.2 Lawrence, Giovannilindsey Gallegos, 2018 20mg by mouth at M.D. Tablets bedtime Omeprazole 1 by mouth every 30caps L[facility].9 [facility]aps[address] day M[address]D. DR K21.0 Tylenol Extra Strength 2 tabs by mouth 180tabs M79.606 [facility] Giovannilindsey Gallegos, three times a day as M.D. 500mg Tablets directed. max daily dose of tylenol from all sources to not exceed 4000mg Alendronate Sodium 1 tab by mouth every 14tabs M81.8 Lawrence, Tonyluly Gallegos, 10/2017 40mg week M.D. Tablets Hydrocodone-Acetaminop 1 tab by mouth four 60tabs M51.37 [place], Tonyluly Gallegos, 11/04/2016 hen times a day as M.D. 5-325mg Tablets needed M79.606 M51.37 Miralax 1-2 caps by mouth 1020gm K59.00 Lawrence, Giovannilindsey Gallegos, 11/04/2016 3350NF Powder every day M.D. Estradiol 1 skin every week 12units N95.9 [facility] Giovannilindsey Andrea, 10/11/2016 0.1mg/24HR M.D. Patches Weekly Fluoxetine HCL Take 2 Capsules By 90caps E03.9 Lawrence, Tonyluly Gallegos, 09/30/2016 20mg Mouth In The Morning M.D. Capsules And 1 Tablet AT Night F41.9 F33.9 Lisinopril take 1 tablet by 90tabs I10 Lawrence, Tonyluly Gallegos, 07/15/2016 20mg Tablets mouth once daily M.D. Zoloft 1 tab by mouth every 90tabs F31.9 Lawrence, luly Gallegos, 06/21/2016 100mg Tablets evening M.D. F41.9 F33.9 Aspirin Take 2 Tablet By Mouth Once I65.[address] Ximena For Prevention I73.9 Levothyroxine Sodium take 1 tablet by 90tabs E03.9 Blayne Bravo M., 0000/ 0000 100mcg mouth once daily M.D. Tablets History Medications Ranitidine 150 1 tab by mouth 180tabs K21.0 [facility] - Maximum Strength twice a day M., M.D. 11/04/2018 150mg Tablets Aleve 1 tab by mouth 60tabs M79.606 [facility] 09/03/2018 - 220mg Tablets twice a day M., M.D. 11/04/2018 with food Medications Administered in Office Medication SIG Qnty Indications Ordering Provider Date Admin Of Pneumovax Luis Alberto Xavier CANDELARIO 09/30/2015 Injection Immunizations CPT Code Status Date Vaccine Lot # [id number] Given 12/12/2017 Flu Vaccine 3+Yrs Old(Fluzone) [id number] Given 12/13/2016 Flu Vaccine 3+Yrs Old(Fluzone) [id number] Given 12/17/2015 Flu Vaccine 3+Yrs Old(Fluzone) [id number] Given 09/30/2015 Pneumovax [id number] Vital Signs Date Vital Result Comment 11/05/2018 1:53pm BP Systolic 128 mmHg BP Diastolic 72 mmHg Height 62 inches 5'2" Weight 126.00 lb BMI (Body Mass Index) 23.0 kg/m2 Heart Rate 88 /min Respiratory Rate 16 /min 11/02/2018 1:07pm BP Systolic 124 mmHg BP Diastolic 62 mmHg Height 62 inches 5'2" Weight 126.00 lb BMI (Body Mass Index) 23.0 kg/m2 Heart Rate 84 /min Respiratory Rate 16 /min Results Test Date Facility Test Result H/L Range Note Laboratory test 10/26/2018 [facility] Urine SPECIMEN 1 finding [facility] Culture DESCRIP <SEE (607)- - NOTE> CBC With Diff 10/05/2018 [facility] WBC 6.5 10*3/uL (4.1-11.0) [address] [facility] (607)- - RBC 4.89 10*6/uL (4.00-5.40) HGB 14.0 g/dL (12.0-16.0) HCT 42.2 % (36.0-47.0) MCV 86.3 fL (80.0-95.0) MCH 28.5 pg (27.0-32.0) MCHC 33.1 g/dL (32.0-36.0) RDW 15.9 % High (10.5-14.5) PLT 176 10*3/uL (150-450) MPV 8.7 fL (7.1-10.7) Neut % 69.9 % (35.0-75.0) Lymph % 19.8 % (16.0-52.0) Spink % 7.0 % (0.0-8.0) Eos % 2.5 % (0.0-5.0) Baso % 0.8 % (0.0-4.0) Neut # 4.6 10*3/uL (1.8-7.7) Lymph # 1.3 10*3/uL (1.2-4.8) Spink # 0.5 10*3/uL (0.0-0.8) Eos # 0.2 10*3/uL (0.0-0.5) Baso # 0.1 10*3/uL (0.0-0.2) CMP 10/05/2018 [facility] Sodium 141 mmol/L (136-145) [facility] [...] Interpretation <SEE NOTE> 2 Laboratory test 10/05/2018 [facility] Free Thyroxine 1.08 ng/dL (0.76- 1.46) finding [address] [employer] @ (607)- - TSH,Ultrasensitive @ 0.782 mIU/L (0.360-4.170) Lipid 10/05/2018 [facility] Cholesterol @ 269 mg/dL High (0-200) [address] [employer] (607)- - Triglyceride @ 218 mg/dL High (30-200) HDL Cholesterol @ 51 mg/dL (>40) 3 Chol/HDL Ratio 5.3 RATIO 4 LDL Chol (Calc) 174 mg/dL High (<130) 5 Laboratory test finding 10/05/2018 [facility] Esr 6 mm/h (0-30) [address] [employer] (607)- - 25 Hydroxy Vit D @ [...] METHOD. Procedures Date Code Description Status 05/31/2018 96521 Ear Irrigation Completed 02/20/2014 [id number] Mammogram Completed Medical Devices Description No Information Available Encounters Type Date Location Provider Dx Diagnosis Office Visit 11/05/2018 [facility] Chivo Kelly, I10 Essential ( primary) 2:00p N.P. hypertension E03.9 Hypothyroidism, unspecified E78.2 Mixed [...] M79.672 Pain in left foot Office Visit 11/02/2018 1:15p [facility] Chivo Kelly, I10 Essential (primary) N.P. hypertension [...] in left foot Office Visit 10/24/2018 11:00a [facility] Chivo Kelly, I10 Essential (primary) N.P. [...] Chest pain, unspecified Office Visit 10/05/2018 8:45a [facility] Chivo Kelly, I10 Essential (primary) N.P. [...] Chest pain, unspecified Office Visit 09/03/2018 1:00p [facility] Chivo Kelly I10 Essential (primary) N.P. hypertension E03.9 Hypothyroidism, [...] Chest pain, unspecified Office Visit 2018 3:00p [facility] Blayne Bravo I10 Essential ( primary) [...] Chest pain, unspecified Office Visit 05/31/2018 2:30p [facility] Blayne Bravo I10 Essential ( primary) [...] right ear Assessments Date Code Description Provider 11/05/2018 I10 Essential (primary) hypertension Chivo Kelly N.PAndrea 11/05/2018 E03.9 Hypothyroidism, unspecified Chivo Kelly N.P. 11/05/2018 E78.2 Mixed hyperlipidemia Chivo Kelly N.P. 11/05/2018 I73.9 Peripheral vascular disease, unspecified Chivo Kelly N.P. 11/05/2018 I65.23 Occlusion and stenosis of bilateral carotid Chivo Kelly N.PAndrea arteries 11/05/2018 J44.9 Chronic obstructive pulmonary disease, Chivo Kelly N.PAndrea unspecified 11/05/2018 R73.01 Impaired fasting glucose Chivo Kelly N.PAndrea 11/05/2018 M51.37 Other intervertebral disc degeneration, Chivo Kelly N.P. lumbosacral region 11/05/2018 F02.80 Dementia in other diseases classified Chivo Kelly N.PAndrea elsewhere without beha 11/05/2018 F17.210 Nicotine dependence, cigarettes, Chivo Kelly N.P. uncomplicated 11/05/2018 F41.9 Anxiety disorder, unspecified Chivo Kelly N.P. 11/05/2018 F31.9 Bipolar disorder, unspecified Chivo Kelly N.P. 11/05/2018 M79.606 Pain in leg, unspecified Chivo Kelly N.P. 11/05/2018 M25.559 Pain in unspecified hip Chivo Kelly, N.P. 11/05/2018 F33.9 Major depressive disorder, recurrent, Chivo Kelly N.P. unspecified 11/05/2018 M15.9 Polyosteoarthritis, unspecified Chivo Kelly, N.P. 11/05/2018 M81.8 Other osteoporosis without current Chivo Kelly, N.PAndrea pathological fracture 11/05/2018 R55 Syncope and collapse Chivo Kelly, N.P. 11/05/2018 L30.9 Dermatitis, unspecified Chivo Kelly, N.P. 11/05/2018 L20.9 Atopic dermatitis, unspecified Chivo Kelly, N.P. 11/05/2018 J30.9 Allergic rhinitis, unspecified Chivo Kelly, N.P. 11/05/2018 R26.81 Unsteadiness on feet Chivo Kelly, N.P. 11/05/2018 K21.0 Gastro-esophageal reflux disease with Chivo Kelly N.PAndrea esophagitis 11/05/2018 K30 Functional dyspepsia Chivo Kelly N.P. 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 11/05/2018 R60.0 Localized edema Chivo Kelly N.P. 11/05/2018 I71.4 Abdominal aortic aneurysm, without rupture Chivo Kelly N.P. 11/05/2018 N95.9 Unspecified menopausal and perimenopausal Chivo Kelly N.P. disorder 11/05/2018 K59.00 Constipation, unspecified Chivo Kelly, N.P. 11/05/2018 E55.9 Vitamin D deficiency, unspecified Chivo Kelly, N.P. 11/05/2018 R05 Cough Chivo Kelly, N.P. 11/05/2018 R06.02 Shortness of breath Chivo Kelly N.P. 11/05/2018 M25.562 Pain in left knee Chivo Kelly N.P. 11/05/2018 R07.9 Chest pain, unspecified Chivo Kelly N.P. 11/05/2018 M79.672 Pain in left foot Chivo Kelly N.P. 11/02/2018 I10 Essential (primary) hypertension Chivo Kelly N.P. 11/02/2018 E03.9 Hypothyroidism, unspecified Chivo Kelly, N.P. 11/02/2018 E78.2 Mixed hyperlipidemia Chivo Kelly N.P. 11/02/2018 I73.9 Peripheral vascular disease, unspecified Chivo Kelly, N.P. 11/02/2018 I65.23 Occlusion and stenosis of bilateral carotid Chivo Kelly N.P. arteries 11/02/2018 J44.9 Chronic obstructive pulmonary disease, Chivo Kelly N.P. unspecified 11/02/2018 R73.01 Impaired fasting glucose Chivo Kelly, N.P. 11/02/2018 M51.37 Other intervertebral disc degeneration, Chivo Kelly N.P. lumbosacral region 11/02/2018 F02.80 Dementia in other diseases classified Chivo Kelly N.PAndrea elsewhere without beha 11/02/2018 F17.210 Nicotine dependence, [...] 11/02/2018 R55 Syncope and collapse Chivo Kelly N.P. 11/02/2018 L30.9 Dermatitis, unspecified Chivo Kelly N.P. 11/02/2018 L20.9 Atopic dermatitis, unspecified Chivo Kelly N.P. 11/02/2018 J30.9 Allergic rhinitis, unspecified Chivo Kelly N.P. 11/02/2018 R26.81 Unsteadiness on feet Chivo Kelly N.P. 11/02/2018 K21.0 Gastro-esophageal reflux disease with Chivo Kelly N.PAndrea esophagitis 11/02/2018 K30 Functional dyspepsia Chivo Kelly N.P. 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 11/02/2018 R60.0 Localized edema Chivo Kelly N.P. 11/02/2018 I71.4 Abdominal aortic aneurysm, without rupture Chivo Kelly N.PAndrea 11/02/2018 N95.9 Unspecified menopausal and perimenopausal Chivo Kelly N.PAndrea disorder 11/02/2018 K59.00 Constipation, unspecified Chivo Kelly N.P. 11/02/2018 E55.9 Vitamin D deficiency, unspecified hCivo Kelly N.P. 11/02/2018 R05 Cough Chivo Kelly N.P. 11/02/2018 R06.02 Shortness of breath Chivo Kelly N.PAndrea 11/02/2018 M25.562 Pain in left knee Chivo Kelly N.PAndrea 11/02/2018 R07.9 Chest pain, unspecified Chivo Kelly N.PAndrea 11/02/2018 M79.672 Pain in left foot Chivo Kelly N.P. 10/24/2018 I10 Essential (primary) hypertension Chivo Kelly N.PAndrea 10/24/2018 E03.9 Hypothyroidism, unspecified Chivo Kelly N.P. 10/24/2018 E78.2 Mixed hyperlipidemia Chivo Kelly N.PAndrea 10/24/2018 I73.9 Peripheral vascular disease, unspecified Chivo Kelly N.P. 10/24/2018 I65.23 Occlusion and stenosis of bilateral carotid Chivo Kelly N.PAndrea arteries 10/24/2018 J44.9 Chronic obstructive pulmonary disease, Chivo Kelly N.PAndrea unspecified 10/24/2018 R73.01 Impaired fasting glucose Chivo Kelly N.PAndrea 10/24/2018 M51.37 Other intervertebral disc degeneration, Chivo Kelly N.PAndrea lumbosacral region 10/24/2018 F02.80 Dementia in other diseases classified Chivo Kelly N.PAndrea elsewhere without beha 10/24/2018 F17.210 Nicotine dependence, cigarettes, Chivo Kelly N.PAndrea uncomplicated 10/24/2018 F41.9 Anxiety disorder, unspecified Chivo Kelly N.PAndrea 10/24/2018 F31.9 Bipolar disorder, unspecified Chivo Kelly N.P. 10/24/2018 M79.606 Pain in leg, unspecified Chivo Kelly, N.P. 10/24/2018 M25.559 Pain in unspecified hip Chivo Kelly, N.P. 10/24/2018 F33.9 Major depressive disorder, recurrent, Chivo Kelly N.P. unspecified 10/24/2018 M15.9 Polyosteoarthritis, unspecified Chivo Kelly, N.P. 10/24/2018 M81.8 Other osteoporosis without current Chivo Kelly, N.P. pathological fracture 10/24/2018 R55 Syncope and collapse Chivo Kelly, N.P. 10/24/2018 L30.9 Dermatitis, unspecified Chivo Kelly, N.P. 10/24/2018 L20.9 Atopic dermatitis, unspecified Chivo Kelly, N.P. 10/24/2018 J30.9 Allergic rhinitis, unspecified Chivo Kelly, N.P. 10/24/2018 R26.81 Unsteadiness on feet Chivo Kelly N.P. 10/24/2018 K21.0 Gastro-esophageal reflux disease with Chivo Kelly, N.PAndrea esophagitis 10/24/2018 K30 Functional dyspepsia Chivo Kelly, N.P. 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 loss, bilateral 10/24/2018 G47.00 Insomnia, unspecified Chivo Kelly, N.P. 10/24/2018 R60.0 Localized edema Chivo Kelly N.P. 10/24/2018 I71.4 Abdominal aortic aneurysm, without rupture Chivo Kelly N.P. 10/24/2018 N95.9 Unspecified menopausal and perimenopausal Chivo Kelly, N.P. disorder 10/24/2018 K59.00 Constipation, unspecified Chivo Kelly, N.P. 10/24/2018 E55.9 Vitamin D deficiency, unspecified Chivo Kelly, N.P. 10/24/2018 R05 Cough Chivo Kelly, N.P. 10/24/2018 R06.02 Shortness of breath Chivo Kelly N.P. 10/24/2018 M25.562 Pain in left knee Chivo Kelly N.P. 10/24/2018 R07.9 Chest pain, unspecified Chivo Kelly, N.P. 10/05/2018 I10 Essential (primary) hypertension Chivo Kelly, N.P. 10/05/2018 E03.9 Hypothyroidism, unspecified Chivo Kelly N.P. 10/05/2018 E78.2 Mixed hyperlipidemia Chivo Kelly, N.P. 10/05/2018 I73.9 Peripheral vascular disease, unspecified Chivo Kelly, N.P. 10/05/2018 I65.23 Occlusion and stenosis of bilateral carotid Chivo Kelly N.P. arteries 10/05/2018 J44.9 Chronic obstructive pulmonary disease, Chivo Kelly N.P. unspecified 10/05/2018 R73.01 Impaired fasting glucose Chivo Kelly, N.P. 10/05/2018 M51.37 Other intervertebral disc degeneration, Chivo Kelly N.P. lumbosacral region 10/05/2018 F02.80 Dementia in other diseases classified Chivo Kelly N.P. elsewhere without beha 10/05/2018 F17.210 Nicotine dependence, cigarettes, Chivo Kelly N.P. uncomplicated 10/05/2018 F41.9 Anxiety disorder, unspecified Chivo Kelly N.P. 10/05/2018 F31.9 Bipolar disorder, unspecified Chivo Kelly, N.P. 10/05/2018 M79.606 Pain in leg, unspecified Chivo Kelly N.P. 10/05/2018 M25.559 Pain in unspecified hip Chivo Kelly N.P. 10/05/2018 F33.9 Major depressive disorder, recurrent, Chivo Kelly N.P. unspecified 10/05/2018 M15.9 Polyosteoarthritis, unspecified Chivo Kelly N.P. 10/05/2018 M81.8 Other osteoporosis without current Chivo Kelly N.PAndrea pathological fracture 10/05/2018 R55 Syncope and collapse Chivo Kelly, N.P. 10/05/2018 L30.9 Dermatitis, unspecified Chivo Kelly, N.P. 10/05/2018 L20.9 Atopic dermatitis, unspecified Chivo Kelly N.P. 10/05/2018 J30.9 Allergic rhinitis, unspecified Chivo Kelly, N.P. 10/05/2018 R26.81 Unsteadiness on feet Chivo Kelly N.P. 10/05/2018 K21.0 Gastro-esophageal reflux disease with Chivo Kelly N.PAndrea esophagitis 10/05/2018 K30 Functional dyspepsia Chivo Kelly N.P. 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 10/05/2018 R60.0 Localized edema Chivo Kelly N.P. 10/05/2018 I71.4 Abdominal aortic aneurysm, without rupture Chivo Kelly N.PAndrea 10/05/2018 N95.9 Unspecified menopausal and perimenopausal Chivo Kelly N.PAndrea disorder 10/05/2018 K59.00 Constipation, unspecified Chivo Kelly N.P. 10/05/2018 E55.9 Vitamin D deficiency, unspecified Chivo Kelly N.P. 10/05/2018 R05 Cough Chivo Kelly N.P. 10/05/2018 R06.02 Shortness of breath Chivo Kelly N.P. 10/05/2018 M25.562 Pain in left knee Chivo Kelly N.PAndrea 10/05/2018 R07.9 Chest pain, unspecified Chivo Kelly N.P. 09/03/2018 I10 Essential (primary) hypertension Chivo Kelly N.PAndrea 09/03/2018 E03.9 Hypothyroidism, unspecified Chivo Kelly N.P. 09/03/2018 E78.2 Mixed hyperlipidemia Chivo Kelly N.P. 09/03/2018 I73.9 Peripheral vascular disease, unspecified Chivo Kelly N.P. 09/03/2018 I65.23 Occlusion and stenosis of bilateral carotid Chivo Kelly N.PAndrea arteries 09/03/2018 J44.9 Chronic obstructive pulmonary disease, Chivo Kelly N.PAndrea unspecified 09/03/2018 R73.01 Impaired fasting glucose Chivo Kelly N.P. 09/03/2018 M51.37 Other intervertebral disc degeneration, Chivo Kelly N.P. lumbosacral region 09/03/2018 F02.80 Dementia in other diseases classified Chivo Kelly N.Jessica elsewhere without beha 09/03/2018 F17.210 Nicotine dependence, cigarettes, Chivo Kelly N.P. uncomplicated 09/03/2018 F41.9 Anxiety disorder, unspecified Chivo Kelly N.P. 09/03/2018 F31.9 Bipolar disorder, unspecified Chivo Kelly N.P. 09/03/2018 M79.606 Pain in leg, unspecified Chivo Kelly, N.P. 09/03/2018 M25.559 Pain in unspecified hip Chivo Kelly N.P. 09/03/2018 F33.9 Major depressive disorder, recurrent, Chivo Kelly, N.P. unspecified 09/03/2018 M15.9 Polyosteoarthritis, unspecified Chivo Kelly, N.P. 09/03/2018 M81.8 Other osteoporosis without current Chivo Kelly, N.PAndrea pathological fracture 09/03/2018 R55 Syncope and collapse Chivo Kelly, N.P. 09/03/2018 L30.9 Dermatitis, unspecified Chivo Kelly, N.P. 09/03/2018 L20.9 Atopic dermatitis, unspecified Chivo Kelly, N.P. 09/03/2018 J30.9 Allergic rhinitis, unspecified Chivo Kelly, N.P. 09/03/2018 R26.81 Unsteadiness on feet Chivo Kelly N.P. 09/03/2018 K21.0 Gastro-esophageal reflux disease with Chivo Kelly N.PAndrea esophagitis 09/03/2018 K30 Functional dyspepsia Chivo Kelly, N.P. 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 09/03/2018 R60.0 Localized edema Chivo Kelly, N.P. 09/03/2018 I71.4 Abdominal aortic aneurysm, without [...] 11:00 am - Chivo Kelly N.P. at [facility] Functional Status Description No Information Available Mental Status Description No Information Available Referrals Description No Information Available
--- OUTSIDE RECORDS SUMMARY | 2018-12-18 16:36 | XMS REPORT | Continuity of Care Document ---
:1935 External Reference #:[id number] Author Name Chivo Kelly N.P. 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 Out Problems Active Problems Provider Date Bipolar disorder Luis Alberto Xavier PLASTIC PRESS OPERATOR Onset: 09/23/2015 Low blood pressure Luis Alberto Xavier PLASTIC PRESS OPERATOR Onset: 09/23/2015 Anxiety state Luis Alberto Xavier PLASTIC PRESS OPERATOR Onset: 09/24/2015 Depressive disorder Luis Alberto Xavier PLASTIC PRESS OPERATOR Onset: 09/24/2015 Hypothyroidism Luis Alberto Xavier PLASTIC PRESS OPERATOR Onset: 09/24/2015 Chronic low back pain Luis Alberto Xavier PLASTIC PRESS OPERATOR Onset: 09/24/2015 Loss of appetite Luis Alberto Xavier PLASTIC PRESS OPERATOR Onset: 09/24/2015 Tobacco user Luis Alberto Xavier PLASTIC PRESS OPERATOR Onset: 09/24/2015 Chronic obstructive lung disease Luis Alberto Xavier PLASTIC PRESS OPERATOR Onset: 09/24/2015 Closed fracture of surgical neck of right humerus Luis Alberto Xavier PLASTIC PRESS OPERATOR Onset: Essential hypertension Onset: 11/14/2018 Intermittent claudication due to atherosclerosis Onset: 11/14/2018 of [place] artery of limb Peripheral vascular disease Onset: 05/05/2016 Social History Type Date Description [...] Medications SIG Qnty Indications Ordering Provider Date Amlodipine Besylate 1 by mouth every 30tabs Blayne Bravo, 11/23/2018 10mg day M.D. Tablets Claritin 1 by mouth every 30tabs J30.9 Blayne Bravo, 11/23/2018 10mg Tablets day M.D. Cimetidine 1 tab by mouth 60tabs Blayne Bravo, 11/05/2018 300mg Tablets twice a day as M.D. needed Ibuprofen 1 by mouth three 90tabs M79.672 Blayne Bravo, 11/02/2018 800mg Tablets times a day as M.D. needed Atorvastatin Calcium take one tablet 30tabs E78.2 Blayne Bravo, 2018 20mg by mouth at M.D. Tablets bedtime Omeprazole 1 by mouth every 30caps L30.9 Blayne Bravo, 09/03/2018 20mg Capsules day M.D. K21.0 Tylenol Extra Strength 2 tabs by mouth 180tabs M79.606 Blayne Bravo, three times a day as M.D. 500mg Tablets directed. max daily dose of tylenol from all sources to not exceed 4000mg Alendronate Sodium 1 tab by mouth every 14tabs M81.8 Blayne Bravo, 10/2017 40mg week M.D. Tablets Miralax 1-2 caps by mouth 1020gm K59.00 Blayne Bravo, 11/04/2016 3350NF Powder every day M.D. Hydrocodone-Acetaminop 1 tab by mouth four 60tabs M51.37 Blayne Bravo, 11/04/2016 hen times a day as M.D. 5-325mg Tablets needed M79.606 Estradiol 1 skin every week 12units N95.9 Blayne Bravo, 10/11/2016 0.1mg/24HR M.D. Patches Weekly Fluoxetine HCL Take 2 Capsules By 90caps E03.9 Blayne Bravo, 09/30/2016 20mg Mouth In The Morning M.D. Capsules And 1 Tablet AT Night F41.9 F33.9 Lisinopril take 1 tablet by 90tabs I10 Blayne Bravo, 07/15/2016 20mg Tablets mouth once daily M.D. Zoloft 1 tab by mouth every [facility]tabs [facility]9 [facility] Tablets evening M.D. F41.9 F33.9 Aspirin Take 2 Tablet By Mouth Once I65.[address] Daily For Prevention I73.9 Levothyroxine Sodium take 1 tablet by 90tabs E03.9 [facility] mouth once daily M.D. Tablets History Medications Amlodipine Besylate 1 by mouth 30tabs [facility] 11/14/2018 - every day M., M.D. 11/23/2018 5mg Tablets Ranitidine 150 1 tab by mouth 180tabs K21.0 [facility] 09/03/2018 - Maximum Strength twice a day M., M.D. 11/04/2018 150mg Tablets Aleve 1 tab by mouth 60tabs M79.606 [facility] 09/03/2018 - 220mg Tablets twice a day M., M.D. 11/04/2018 with food Medications Administered in Office Medication SIG Qnty Indications Ordering Provider Date Admin Of Pneumovax Luis Alberto Xavier 09/30/2015 Injection Immunizations CPT Code Status Date Vaccine Lot # [id number] Given 11/30/2018 Flu Virus Vaccine, Quadrivalent, Slit Virus, Im [id number] Use [id number] Given 12/12/2017 Flu Vaccine 3+Yrs Old(Fluzone) [id number] Q2038 Given 12/13/2016 Flu Vaccine 3+Yrs Old(Fluzone) [id number] Q2038 Given 12/17/2015 Flu Vaccine 3+Yrs Old(Fluzone) [id number] Given 09/30/2015 Pneumovax [id number] Vital Signs Date Vital Result Comment 11/30/2018 10:55am BP Systolic 140 mmHg BP Diastolic 63 mmHg Height 62 inches 5'2" Weight 126.00 lb BMI (Body Mass Index) 23.0 kg/m2 Heart Rate 80 /min Respiratory Rate 16 /min 11/23/2018 10:56am BP Systolic 155 mmHg BP Diastolic 61 mmHg Height 62 inches 5'2" Weight 128.00 lb BMI (Body Mass Index) 23.4 kg/m2 Heart Rate 84 /min Respiratory Rate 16 /min Results Test Date Facility Test Result H/L Range Note Laboratory test 10/26/2018 [facility] Urine SPECIMEN 1 finding [address] Culture DESCRIP <SEE (607)- - NOTE> CBC With Diff 10/05/2018 [facility] WBC 6.5 10*3/uL (4.1-11.0) [address] (607)- - RBC 4.89 10*6/uL (4.00-5.40) HGB 14.0 g/dL (12.0-16.0) HCT 42.2 % (36.0-47.0) MCV 86.3 fL (80.0-95.0) MCH 28.5 pg (27.0-32.0) MCHC 33.1 g/dL (32.0-36.0) RDW 15.9 % High (10.5-14.5) PLT 176 10*3/uL (150-450) MPV 8.7 fL (7.1-10.7) Neut % 69.9 % (35.0-75.0) Lymph % 19.8 % (16.0-52.0) Centre % 7.0 % (0.0-8.0) Eos % 2.5 % (0.0-5.0) Baso % 0.8 % (0.0-4.0) Neut # 4.6 10*3/uL (1.8-7.7) Lymph # 1.3 10*3/uL (1.2-4.8) Centre # 0.5 10*3/uL (0.0-0.8) Eos # 0.2 10*3/uL (0.0-0.5) Baso # 0.1 10*3/uL (0.0-0.2) CMP 10/05/2018 [facility] Sodium 141 mmol/L (136-145) [address] (607)- - Potassium 4.4 mmol/L (3.6-5.2) Chloride [...] Interpretation <SEE NOTE> 2 Laboratory test 10/05/2018 [facility] Free Thyroxine 1.08 ng/dL (0.76- 1.46) finding [facility] @ (607)- - TSH,Ultrasensitive @ 0.782 mIU/L (0.360-4.170) Lipid 10/05/2018 [facility] Cholesterol @ 269 mg/dL High (0-200) [facility] (605)- - Triglyceride @ 218 mg/dL High (30-200) HDL Cholesterol @ 51 mg/dL (>40) 3 Chol/HDL Ratio 5.3 RATIO 4 LDL Chol (Calc) 174 mg/dL High (<130) 5 Laboratory test finding 10/05/2018 [facility] Esr 6 mm/h (0-30) [facility] (346)- - 25 Hydroxy Vit D @ 29 [...] THIS METHOD. Procedures Date Code Description Status 02/20/2014 [id number] Mammogram Completed Medical Devices Description No Information Available Encounters Type Date Location Provider Dx Diagnosis Office Visit 11/30/2018 [facility] Chivo Kelly, I10 Essential ( primary) 11:00a [...] pain, unspecified M79.672 Pain in left foot Z23 Encounter for immunization Office Visit 11/23/2018 11:00a [facility] hCivo Kelly, I10 Essential (primary) N.P. hypertension E03.9 [...] M79.672 Pain in left foot Office Visit 11/05/2018 2:00p [facility] Chivo Kelly, I10 Essential (primary) N.P. [...] in left foot Office Visit 11/02/2018 1:15p [facility] Chivo Kelly, I10 Essential (primary) N.P. [...] in left foot Office Visit 10/24/2018 11:00a [facility] Chivo Kelly, I10 Essential (primary) N.P. [...] Chest pain, unspecified Office Visit 10/05/2018 8:45a [facility] Chivo Kelly, I10 Essential (primary) N.P. [...] Chest pain, unspecified Office Visit 09/03/2018 1:00p [facility] Chivo Kelly I10 Essential (primary) N.P. [...] Chest pain, unspecified Office Visit 2018 3:00p [facility] Blayne Bravo I10 Essential ( primary) [...] in left knee R07.9 Chest pain, unspecified Assessments Date Code Description Provider 11/30/2018 I10 Essential (primary) hypertension Chivo Kelly N.P. 11/30/2018 E03.9 Hypothyroidism, unspecified Chivo Kelly N.P. 11/30/2018 E78.2 Mixed hyperlipidemia Chivo Kelly N.P. 11/30/2018 I73.9 Peripheral vascular disease, unspecified Chivo Kelly N.P. 11/30/2018 I65.23 Occlusion and stenosis of bilateral carotid Chivo Kelly N.PAndrea arteries 11/30/2018 J44.9 Chronic obstructive pulmonary disease, Chivo Kelly N.P. unspecified 11/30/2018 R73.01 Impaired fasting glucose Chivo Kelly N.P. 11/30/2018 M51.37 Other intervertebral disc degeneration, Chivo Kelly N.P. lumbosacral region 11/30/2018 F02.80 Dementia in other diseases classified Chivo Kelly N.PAndrea elsewhere without behavioral disturbance 11/30/2018 F17.210 Nicotine dependence, cigarettes, Chivo Kelly N.P. uncomplicated 11/30/2018 F41.9 Anxiety disorder, unspecified Chivo Kelly N.P. 11/30/2018 F31.9 Bipolar disorder, unspecified Chivo Kelly N.P. 11/30/2018 M79.606 Pain in leg, unspecified Chivo Kelly N.P. 11/30/2018 M25.559 Pain in unspecified hip Chivo Kelly N.P. 11/30/2018 F33.9 Major depressive disorder, recurrent, Chivo Kelly N.P. unspecified 11/30/2018 M15.9 Polyosteoarthritis, unspecified Chivo Kelly N.P. 11/30/2018 M81.8 Other osteoporosis without current Chivo Kelly N.PAndrea pathological fracture 11/30/2018 R55 Syncope and collapse Chivo Kelly, N.P. 11/30/2018 L30.9 Dermatitis, unspecified Chivo Kelly N.P. 11/30/2018 L20.9 Atopic dermatitis, unspecified Chivo Kelly N.P. 11/30/2018 J30.9 Allergic rhinitis, unspecified Chivo Kelly, N.P. 11/30/2018 R26.81 Unsteadiness on feet Chivo Kelly N.P. 11/30/2018 K21.0 Gastro-esophageal reflux disease with Chivo Kelly N.PAndrea esophagitis 11/30/2018 K30 Functional dyspepsia Chivo Kelly N.P. 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 11/30/2018 R60.0 Localized edema Chivo Kelly, N.P. 11/30/2018 I71.4 Abdominal aortic aneurysm, without rupture Chivo Kelly N.P. 11/30/2018 N95.9 Unspecified menopausal and perimenopausal Chivo Kelly N.P. disorder 11/30/2018 K59.00 Constipation, unspecified Chivo Kelly, N.P. 11/30/2018 E55.9 Vitamin D deficiency, unspecified Chivo Kelly N.P. 11/30/2018 R05 Cough Chivo Kelly N.P. 11/30/2018 R06.02 Shortness of breath Chivo Kelly N.P. 11/30/2018 M25.562 Pain in left knee Chivo Kelly N.P. 11/30/2018 R07.9 Chest pain, unspecified Chivo Kelly N.P. 11/30/2018 M79.672 Pain in left foot Chivo Kelly N.P. 11/30/2018 Z23 Encounter for immunization Chivo Kelly, N.P. 11/23/2018 I10 Essential (primary) hypertension Chivo Kelly N.P. 11/23/2018 E03.9 Hypothyroidism, unspecified Chivo Kelly, N.P. 11/23/2018 E78.2 Mixed hyperlipidemia Chivo Kelly, N.P. 11/23/2018 I73.9 Peripheral vascular disease, unspecified Chivo Kelly N.P. 11/23/2018 I65.23 Occlusion and stenosis of bilateral carotid Chivo Kelly , N.P. arteries 11/23/2018 J44.9 Chronic obstructive pulmonary disease, Chivo Kelly, N.P. unspecified 11/23/2018 R73.01 Impaired fasting glucose Chivo Kelly N.P. 11/23/2018 M51.37 Other intervertebral disc degeneration, Chivo Kelly, N.P. lumbosacral region 11/23/2018 F02.80 Dementia in other diseases classified Chivo Kelly N.P. elsewhere without behavioral disturbance 11/23/2018 F17.210 Nicotine dependence, cigarettes, Chivo Kelly, N.P. uncomplicated 11/23/2018 F41.9 Anxiety disorder, unspecified Chivo Kelly, N.P. 11/23/2018 F31.9 Bipolar disorder, unspecified Chivo Kelly, N.P. 11/23/2018 M79.606 Pain in leg, unspecified Chivo Kelly N.P. 11/23/2018 M25.559 Pain in unspecified hip Chivo Kelly N.P. 11/23/2018 F33.9 Major depressive disorder, recurrent, Chivo Kelly N.P. unspecified 11/23/2018 M15.9 Polyosteoarthritis, unspecified Chivo Kelly, N.P. 11/23/2018 M81.8 Other osteoporosis without current Chivo Kelly, N.PAndrea pathological fracture 11/23/2018 R55 Syncope and collapse Chivo Kelly, N.P. 11/23/2018 L30.9 Dermatitis, unspecified Chivo Kelly, N.P. 11/23/2018 L20.9 Atopic dermatitis, unspecified Chivo Kelly, N.P. 11/23/2018 J30.9 Allergic rhinitis, unspecified Chivo Kelly, N.P. 11/23/2018 R26.81 Unsteadiness on feet Chivo Kelly N.P. 11/23/2018 K21.0 Gastro-esophageal reflux disease with Krishna Zee.PAndrea esophagitis 11/23/2018 K30 Functional dyspepsia Chivo Kelly N.P. 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 11/23/2018 R60.0 Localized edema Chivo Kelly N.PAndrea 11/23/2018 I71.4 Abdominal aortic aneurysm, without rupture Chivo Kelly N.PAndrea 11/23/2018 N95.9 Unspecified menopausal and perimenopausal Chivo Kelly N.PAndrea disorder 11/23/2018 K59.00 Constipation, unspecified Chivo Kelly N.PAndrea 11/23/2018 E55.9 Vitamin D deficiency, unspecified Chivo Kelly N.P. 11/23/2018 R05 Cough Chivo Kelly N.P. 11/23/2018 R06.02 Shortness of breath Chivo Kelly N.PAndrea 11/23/2018 M25.562 Pain in left knee Chivo Kelly N.PAndrea 11/23/2018 R07.9 Chest pain, unspecified Chivo Kelly N.P. 11/23/2018 M79.672 Pain in left foot Chivo Kelly N.PAndrea 11/05/2018 I10 Essential (primary) hypertension Chivo Kelly N.PAndrea 11/05/2018 E03.9 Hypothyroidism, unspecified Chivo Kelly N.P. 11/05/2018 E78.2 Mixed hyperlipidemia Chivo Kelly N.PAndrea 11/05/2018 I73.9 Peripheral vascular disease, unspecified Chivo Kelly N.P. 11/05/2018 I65.23 Occlusion and stenosis of bilateral carotid Chivo Kelly N.PAndrea arteries 11/05/2018 J44.9 Chronic obstructive pulmonary disease, Chivo Kelly N.PAndrea unspecified 11/05/2018 R73.01 Impaired fasting glucose Chivo Kelly N.PAndrea 11/05/2018 M51.37 Other intervertebral disc degeneration, Chivo Kelly N.P. lumbosacral region 11/05/2018 F02.80 Dementia in other diseases classified Krishna Zee.Jessica elsewhere without beha 11/05/2018 F17.210 Nicotine dependence, cigarettes, Chivo Kelly N.P. uncomplicated 11/05/2018 F41.9 Anxiety disorder, unspecified Chivo Kelly, N.P. 11/05/2018 F31.9 Bipolar disorder, unspecified Chivo Kelly, N.P. 11/05/2018 M79.606 Pain in leg, unspecified Chivo Kelly, N.P. 11/05/2018 M25.559 Pain in unspecified hip Chivo Kelly, N.P. 11/05/2018 F33.9 Major depressive disorder, recurrent, Chivo Kelly, N.P. unspecified 11/05/2018 M15.9 Polyosteoarthritis, unspecified Chivo Kelly, N.P. 11/05/2018 M81.8 Other osteoporosis without current Chivo Kelly, N.PAndrea pathological fracture 11/05/2018 R55 Syncope and collapse Chivo Kelly, N.P. 11/05/2018 L30.9 Dermatitis, unspecified Chivo Kelly, N.P. 11/05/2018 L20.9 Atopic dermatitis, unspecified Chivo Kelly N.P. 11/05/2018 J30.9 Allergic rhinitis, unspecified Chivo Kelly, N.P. 11/05/2018 R26.81 Unsteadiness on feet Chivo Kelly, N.P. 11/05/2018 K21.0 Gastro-esophageal reflux disease with Chivo Kelly N.PAndrea esophagitis 11/05/2018 K30 Functional dyspepsia Chivo Kelly, N.P. 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 11/05/2018 R60.0 Localized edema Chivo Kelly N.P. 11/05/2018 I71.4 Abdominal aortic aneurysm, without rupture Chivo Kelly, N.P. 11/05/2018 N95.9 Unspecified menopausal and perimenopausal Chivo Kelly, N.P. disorder 11/05/2018 K59.00 Constipation, unspecified Chivo Kelly, N.P. 11/05/2018 E55.9 Vitamin D deficiency, unspecified Chivo Kelly, N.P. 11/05/2018 R05 Cough Chivo Kelly, N.P. 11/05/2018 R06.02 Shortness of breath Chivo Kelly N.P. 11/05/2018 M25.562 Pain in left knee Chivo Kelly N.P. 11/05/2018 R07.9 Chest pain, unspecified Chivo Kelly, N.P. 11/05/2018 M79.672 Pain in left foot Chivo Kelly N.P. 11/02/2018 I10 Essential (primary) hypertension Chivo Kelly, N.P. 11/02/2018 E03.9 Hypothyroidism, unspecified Cihvo Kelly, N.P. 11/02/2018 E78.2 Mixed hyperlipidemia Chivo Kelly, N.P. 11/02/2018 I73.9 Peripheral vascular disease, unspecified [...] N.P. 11/02/2018 F31.9 Bipolar disorder, unspecified Chivo Kelly, N.P. 11/02/2018 M79.606 Pain in leg, unspecified [...] 11/02/2018 R26.81 Unsteadiness on feet Chivo Kelly N.PAndrea 11/02/2018 K21.0 Gastro-esophageal reflux disease with Chivo Kelly N.Jessica esophagitis 11/02/2018 K30 Functional dyspepsia Chivo Kelly [...] Chivo Kelly N.P. 11/02/2018 R05 Cough Chivo Kelly N.P. 11/02/2018 R06.02 Shortness of breath Chivo Kelly N.P. 11/02/2018 M25.562 Pain in left knee Chivo Kelly N.P. 11/02/2018 R07.9 Chest pain, unspecified Chivo [...] N.P. 10/24/2018 F31.9 Bipolar disorder, unspecified Chivo Kelly, N.P. 10/24/2018 M79.606 Pain in leg, unspecified [...] 10/24/2018 R26.81 Unsteadiness on feet Chivo Kelly N.PAndrea 10/24/2018 K21.0 Gastro-esophageal reflux disease with Chivo [...] Chivo Kelly N.P. 10/24/2018 R05 Cough Chivo Kelly N.P. 10/24/2018 R06.02 Shortness of breath Cihvo Kelly, N.P. 10/24/2018 M25.562 Pain in left [...] 10/05/2018 J44.9 Chronic obstructive pulmonary disease, Chivo Kelly, N.P. unspecified 10/05/2018 R73.01 Impaired fasting glucose Chivo Kelly N.P. 10/05/2018 M51.37 Other intervertebral disc degeneration, Chivo Kelly N.P. lumbosacral region 10/05/2018 F02.80 Dementia in other diseases classified Chivo Kelly, N.P. elsewhere without beha 10/05/2018 F17.210 Nicotine [...] without current Chivo Kelly, N.P. 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 uncomplicated 09/03/2018 F41.9 Anxiety disorder, unspecified Chivo Kelly, N.P. 09/03/2018 F31.9 Bipolar disorder, unspecified Chivo Kelly, N.P. 09/03/2018 M79.606 Pain in leg, unspecified Chivo Kelly N.P. 09/03/2018 M25.559 Pain in unspecified hip [...] sensorineural hearing Chivo Kelly N.Jessica loss, bilateral 09/03/2018 G47.00 Insomnia, unspecified Chivo [...] Bravo M.D. 2018 R06.02 Shortness of breath Blyane Bravo M.D. 2018 M25.562 Pain in left knee Blayne Bravo M.D. 2018 R07.9 Chest pain, unspecified Blayne Bravo M.D. Plan of Treatment Future Appointment(s):01/25/2019 8:45 am - Chivo Kelly N.P. at [facility] Functional Status Description No Information Available Mental Status Description No Information Available Referrals Refer to Dr Reason for Referral Status Appt Date Jason Cornell MD Closed 11/14/2018 Interventional Radiologist [address] [phone]
--- OUTSIDE RECORDS SUMMARY | 2018-12-18 16:36 | XMS REPORT | Continuity of Care Document ---
:1935 External Reference #:[id number] Author Name Chivo Kelly N.P. Address [address] [place] [address] [address] [place] [address] Care Team Providers Name Role Phone Blayne Bravo MD - Family Medicine Care Team Information [employer] Problems Active Problems Provider Date Bipolar disorder Luis Alberto Xavier [employer] Onset: 09/23/2015 Low blood pressure Luis Alberto Xavier [employer] Onset: 09/23/2015 Anxiety state Luis Alberto Xavier [employer] Onset: 09/24/2015 Depressive disorder Luis Alberto Xavier [employer] Onset: 09/24/2015 Hypothyroidism Luis Alberto Xavier [employer] Onset: 09/24/2015 Chronic low back pain Luis Alberto Xavier [employer] Onset: 09/24/2015 Loss of appetite Luis Alberto Xavier [employer] Onset: 09/24/2015 Tobacco user Luis Alberto Xavier [employer] Onset: 09/24/2015 Chronic obstructive lung disease Luis Alberto Xavier [employer] Onset: 09/24/2015 Closed fracture of surgical neck of right humerus Luis Alberto Xavier [employer] Onset: Essential hypertension Onset: 11/14/2018 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 F41.9 F33.9 Aspirin Take 2 Tablet By Mouth Once I65.[address] Daily For Prevention I73.9 Levothyroxine Sodium take 1 tablet by 90tabs E03.9 [facility] mouth once daily M.D. Tablets History Medications Amlodipine Besylate 1 by mouth 30tabs [facility] 11/14/2018 - every day M., M.D. 11/23/2018 5mg Tablets Ranitidine 150 1 tab by mouth 180tabs K21.0 [facility] 09/03/2018 - Maximum Strength twice a day M., M.D. 11/04/2018 150mg Tablets Aleve 1 tab by mouth 60tabs M79.606 [facility] 09/03/2018 - 220mg Tablets twice a day M., M.D. 11/04/2018 with food Medications Administered in Office Medication SIG Qnty Indications Ordering Provider Date Admin Of Pneumovax Luis Alberto Xavier 09/30/2015 Injection Immunizations CPT Code Status Date Vaccine Lot # [id number] Given 12/12/2017 Flu Vaccine 3+Yrs Old(Fluzone) [id number] Q2038 Given 12/13/2016 Flu Vaccine 3+Yrs Old(Fluzone) [id number] Q2038 Given 12/17/2015 Flu Vaccine 3+Yrs Old(Fluzone) [id number] Given 09/30/2015 Pneumovax [id number] Vital Signs Date Vital Result Comment 11/23/2018 10:56am BP Systolic 155 mmHg BP Diastolic 61 mmHg Height 62 inches 5'2" Weight 128.00 lb BMI (Body Mass Index) 23.4 kg/m2 Heart Rate 84 /min Respiratory Rate 16 /min 11/05/2018 1:53pm BP Systolic 128 mmHg BP Diastolic 72 mmHg Height 62 inches 5'2" Weight 126.00 lb BMI (Body Mass Index) 23.0 kg/m2 Heart Rate 88 /min Respiratory Rate 16 /min Results Test Date Facility Test Result H/L Range Note Laboratory test 10/26/2018 [facility] Urine SPECIMEN 1 finding [address] [facility] Culture DESCRIP <SEE (607)- - NOTE> CBC With Diff 10/05/2018 [facility] WBC 6.5 10*3/uL (4.1-11.0) [address] [facility] (607)- - RBC 4.89 10*6/uL (4.00-5.40) HGB 14.0 g/dL (12.0-16.0) HCT 42.2 % (36.0-47.0) MCV 86.3 fL (80.0-95.0) MCH 28.5 pg (27.0-32.0) MCHC 33.1 g/dL (32.0-36.0) RDW 15.9 % High (10.5-14.5) PLT 176 10*3/uL (150-450) MPV 8.7 fL (7.1-10.7) Neut % 69.9 % (35.0-75.0) Lymph % 19.8 % (16.0-52.0) [facility] % 7.0 % (0.0-8.0) Eos % 2.5 % (0.0-5.0) Baso % 0.8 % (0.0-4.0) Neut # 4.6 10*3/uL (1.8-7.7) Lymph # 1.3 10*3/uL (1.2-4.8) [facility] # 0.5 10*3/uL (0.0-0.8) Eos # 0.2 10*3/uL (0.0-0.5) Baso # 0.1 10*3/uL (0.0-0.2) CMP 10/05/2018 [facility] Sodium 141 mmol/L (136-145) [address] [facility] [...] Interpretation <SEE NOTE> 2 Laboratory test 10/05/2018 [facility] Free Thyroxine 1.08 ng/dL (0.76- 1.46) finding [facility] @ (436)- - TSH,Ultrasensitive @ 0.782 mIU/L (0.360-4.170) Lipid 10/05/2018 POI Cholesterol @ 269 mg/dL High (0-200) [facility] (105)- - Triglyceride @ 218 mg/dL High (30-200) HDL Cholesterol @ 51 mg/dL (>40) 3 Chol/HDL Ratio 5.3 RATIO 4 LDL Chol (Calc) 174 mg/dL High (<130) 5 Laboratory test finding 10/05/2018 POI Esr 6 mm/h (0-30) [facility] (599)- - 25 Hydroxy Vit D @ 29 [...] METHOD. Procedures Date Code Description Status 05/31/2018 14804 Ear Irrigation Completed 02/20/2014 [id number] Mammogram Completed Medical Devices Description No Information Available Encounters Type Date Location Provider Dx Diagnosis Office Visit 11/23/2018 [facility] Chivo Kelly, I10 Essential ( primary) 11:00a [...] in left foot Office Visit 11/05/2018 2:00p [facility] Chivo Kelly, I10 Essential (primary) N.P. [...] in left foot Office Visit 11/02/2018 1:15p [facility] Chivo Kelly, I10 Essential (primary) N.P. [...] in left foot Office Visit 10/24/2018 11:00a [facility] Chivo Kelly, I10 Essential (primary) N.P. [...] Chest pain, unspecified Office Visit 10/05/2018 8:45a [facility] Chivo Kelly, I10 Essential (primary) N.P. [...] Chest pain, unspecified Office Visit 09/03/2018 1:00p [facility] Chivo Kelly, I10 Essential (primary) N.P. [...] Chest pain, unspecified Office Visit 2018 3:00p [facility] Tony Bravomad I10 Essential ( primary) Haylee Gallegos. hypertension E03.9 Hypothyroidism, unspecified E78.2 Mixed hyperlipidemia [...] Chest pain, unspecified Office Visit 05/31/2018 2:30p [facility] LawrenceBlayne gusman I10 Essential ( primary) Nazia Gallegos hypertension [...] right ear Assessments Date Code Description Provider 11/23/2018 I10 Essential (primary) hypertension Chivo Kelly N.P. 11/23/2018 E03.9 Hypothyroidism, unspecified Chivo Kelly N.P. 11/23/2018 E78.2 Mixed hyperlipidemia Chivo Kelly N.PAndrea 11/23/2018 I73.9 Peripheral vascular disease, unspecified Chivo Kelly N.P. 11/23/2018 I65.23 Occlusion and stenosis of bilateral carotid Chivo Kelly N.PAndrea arteries 11/23/2018 J44.9 Chronic obstructive pulmonary disease, Chivo Kelly N.PAndrea unspecified 11/23/2018 R73.01 Impaired fasting glucose Chivo Kelly N.P. 11/23/2018 M51.37 Other intervertebral disc degeneration, Chivo Kelly N.P. lumbosacral region 11/23/2018 F02.80 Dementia in other diseases classified Chivo Kelly N.PAndrea elsewhere without behavioral disturbance 11/23/2018 F17.210 Nicotine dependence, cigarettes, Chivo Kelly N.P. uncomplicated 11/23/2018 F41.9 Anxiety disorder, unspecified Chivo Kelly N.P. 11/23/2018 F31.9 Bipolar disorder, unspecified Chivo Kelly N.P. 11/23/2018 M79.606 Pain in leg, unspecified Chivo Kelly N.P. 11/23/2018 M25.559 Pain in unspecified hip Chivo Kelly N.P. 11/23/2018 F33.9 Major depressive disorder, recurrent, Chivo Kelly N.P. unspecified 11/23/2018 M15.9 Polyosteoarthritis, unspecified Chivo Kelly N.P. 11/23/2018 M81.8 Other osteoporosis without current Chivo Kelly N.PAndrea pathological fracture 11/23/2018 R55 Syncope and collapse Chivo Kelly N.P. 11/23/2018 L30.9 Dermatitis, unspecified Chivo Kelly, N.P. 11/23/2018 L20.9 Atopic dermatitis, unspecified Chivo Kelly N.P. 11/23/2018 J30.9 Allergic rhinitis, unspecified Chivo Kelly N.P. 11/23/2018 R26.81 Unsteadiness on feet Chivo Kelly N.P. 11/23/2018 K21.0 Gastro-esophageal reflux disease with Chivo Kelly N.PAndrea esophagitis 11/23/2018 K30 Functional dyspepsia Chivo Kelly N.P. 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 11/23/2018 R60.0 Localized edema Chivo Kelly N.P. 11/23/2018 I71.4 Abdominal aortic aneurysm, without rupture Chivo Kelly N.P. 11/23/2018 N95.9 Unspecified menopausal and perimenopausal Chivo Kelly N.P. disorder 11/23/2018 K59.00 Constipation, unspecified Chivo Kelly, N.P. 11/23/2018 E55.9 Vitamin D deficiency, unspecified Chivo Kelly N.P. 11/23/2018 R05 Cough Chivo Kelly N.P. 11/23/2018 R06.02 Shortness of breath Chivo Kelly N.P. 11/23/2018 M25.562 Pain in left knee Chivo Kelly N.P. 11/23/2018 R07.9 Chest pain, unspecified Chivo Kelly N.P. 11/23/2018 M79.672 Pain in left foot Chivo Kelly N.P. 11/05/2018 I10 Essential (primary) hypertension Chivo Kelly N.P. 11/05/2018 E03.9 Hypothyroidism, unspecified Chivo Kelly, N.P. 11/05/2018 E78.2 Mixed hyperlipidemia Chivo Kelly, N.P. 11/05/2018 I73.9 Peripheral vascular disease, unspecified Chivo Kelly, N.P. 11/05/2018 I65.23 Occlusion and stenosis of bilateral carotid Chivo Kelly N.P. arteries 11/05/2018 J44.9 Chronic obstructive pulmonary disease, Chivo Kelly, N.P. unspecified 11/05/2018 R73.01 Impaired fasting glucose Chivo Kelly, N.P. 11/05/2018 M51.37 Other intervertebral disc degeneration, Chivo Kelly N.P. lumbosacral region 11/05/2018 F02.80 Dementia in other diseases classified Chivo Klely N.P. elsewhere without beha 11/05/2018 F17.210 Nicotine dependence, cigarettes, Chivo Kelly N.P. uncomplicated 11/05/2018 F41.9 Anxiety disorder, unspecified Chivo Kelly N.P. 11/05/2018 F31.9 Bipolar disorder, unspecified Chivo Kelly, N.P. 11/05/2018 M79.606 Pain in leg, unspecified Chivo Kelly N.P. 11/05/2018 M25.559 Pain in unspecified hip Chivo Kelly N.P. 11/05/2018 F33.9 Major depressive disorder, recurrent, Chivo Kelly N.P. unspecified 11/05/2018 M15.9 Polyosteoarthritis, unspecified Chivo Kelly N.P. 11/05/2018 M81.8 Other osteoporosis without current Chivo Kelly, N.PAndrea pathological fracture 11/05/2018 R55 Syncope and collapse Chivo Kelly, N.P. 11/05/2018 L30.9 Dermatitis, unspecified Chivo Kelly, N.P. 11/05/2018 L20.9 Atopic dermatitis, unspecified Chivo Kelly N.P. 11/05/2018 J30.9 Allergic rhinitis, unspecified Chivo Kelly, N.P. 11/05/2018 R26.81 Unsteadiness on feet Chivo Kelly N.P. 11/05/2018 K21.0 Gastro-esophageal reflux disease with Chivo Kelly N.PAndrea esophagitis 11/05/2018 K30 Functional dyspepsia Chivo Kelly N.P. 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 11/05/2018 R60.0 Localized edema Chivo Kelly, N.P. 11/05/2018 I71.4 Abdominal aortic aneurysm, without rupture Chivo Kelly N.P. 11/05/2018 N95.9 Unspecified menopausal and perimenopausal Chivo Kelly, N.P. disorder 11/05/2018 K59.00 Constipation, unspecified Chivo Kelly, N.P. 11/05/2018 E55.9 Vitamin D deficiency, unspecified Chivo Kelly N.P. 11/05/2018 R05 Cough Chivo Kelly, N.P. 11/05/2018 R06.02 Shortness of breath Chivo Kelly N.P. 11/05/2018 M25.562 Pain in left knee Chivo Kelly N.P. 11/05/2018 R07.9 Chest pain, unspecified Chivo Kelly N.P. 11/05/2018 M79.672 Pain in left foot Chivo Kelly, N.P. 11/02/2018 I10 Essential (primary) hypertension Chivo Kelly N.P. 11/02/2018 E03.9 Hypothyroidism, unspecified Chivo Kelly N.P. 11/02/2018 E78.2 Mixed hyperlipidemia Chivo Kelly, N.P. 11/02/2018 I73.9 Peripheral vascular disease, unspecified Chivo Kelly N.P. 11/02/2018 I65.23 Occlusion and stenosis of bilateral carotid Chivo Kelly N.PAndrea arteries 11/02/2018 J44.9 Chronic obstructive pulmonary disease, Chivo Kelly, N.P. unspecified 11/02/2018 R73.01 Impaired fasting glucose Chivo Kelly N.P. 11/02/2018 M51.37 Other intervertebral disc degeneration, Chivo Kelly N.P. lumbosacral region 11/02/2018 F02.80 Dementia in other diseases classified Chivo Kelly N.PAndrea elsewhere without beha 11/02/2018 F17.210 Nicotine dependence, cigarettes, Chivo Kelly N.P. uncomplicated 11/02/2018 F41.9 Anxiety disorder, unspecified Chivo Kelly N.P. 11/02/2018 F31.9 Bipolar disorder, unspecified Chivo Kelly, N.P. 11/02/2018 M79.606 Pain in leg, unspecified Chivo Kelly, N.P. 11/02/2018 M25.559 Pain in unspecified hip Chivo Kelly N.P. 11/02/2018 F33.9 Major depressive disorder, recurrent, Chivo Kelly N.P. unspecified 11/02/2018 M15.9 Polyosteoarthritis, unspecified Chivo Kelly, N.P. 11/02/2018 M81.8 Other osteoporosis without current Chivo Kelly, N.P. pathological fracture 11/02/2018 R55 Syncope and collapse Chivo Kelly, N.P. 11/02/2018 L30.9 Dermatitis, unspecified Chivo Kelly N.P. 11/02/2018 L20.9 Atopic dermatitis, unspecified Chivo Kelly, N.P. 11/02/2018 J30.9 Allergic rhinitis, unspecified Chivo Kelly N.P. 11/02/2018 R26.81 Unsteadiness on feet Chivo Kelly N.P. 11/02/2018 K21.0 Gastro-esophageal reflux disease with Chivo Kelly N.PAndrea esophagitis 11/02/2018 K30 Functional dyspepsia Chivo Kelly N.P. 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 11/02/2018 R60.0 Localized edema Chivo Kelly N.P. 11/02/2018 I71.4 Abdominal aortic aneurysm, without rupture Chivo Kelly N.P. 11/02/2018 N95.9 Unspecified menopausal and perimenopausal Chivo Kelly, N.P. disorder 11/02/2018 K59.00 Constipation, unspecified Chivo Kelly, N.P. 11/02/2018 E55.9 Vitamin D deficiency, unspecified Chivo Kelly, N.P. 11/02/2018 R05 Cough Chivo Kelly N.P. 11/02/2018 R06.02 Shortness of breath Chivo Kelly N.P. 11/02/2018 M25.562 Pain in left knee Chivo Kelly N.P. 11/02/2018 R07.9 Chest pain, unspecified Chivo Kelly N.P. 11/02/2018 M79.672 Pain in left foot Chivo Kelly, N.P. 10/24/2018 I10 Essential (primary) hypertension Chivo Kelly, N.P. 10/24/2018 E03.9 Hypothyroidism, unspecified Chivo Kelly, N.P. 10/24/2018 E78.2 Mixed hyperlipidemia Chivo Kelly, N.P. 10/24/2018 I73.9 Peripheral vascular disease, unspecified Chivo Kelly N.P. 10/24/2018 I65.23 Occlusion and stenosis of bilateral carotid Chivo Kelly , N.P. arteries 10/24/2018 J44.9 Chronic obstructive pulmonary disease, Chivo Kelly, N.P. unspecified 10/24/2018 R73.01 Impaired fasting glucose Chivo Kelly N.P. 10/24/2018 M51.37 Other intervertebral disc degeneration, Chivo Kelly, N.P. lumbosacral region 10/24/2018 F02.80 Dementia in other diseases classified Chivo Kelly N.P. elsewhere without beha 10/24/2018 F17.210 Nicotine dependence, cigarettes, Chivo Kelly, N.P. uncomplicated 10/24/2018 F41.9 Anxiety disorder, unspecified Chivo Kelly, N.P. 10/24/2018 F31.9 Bipolar disorder, unspecified Chivo Kelly, N.P. 10/24/2018 M79.606 Pain in leg, unspecified Chivo Kelly N.P. 10/24/2018 M25.559 Pain in unspecified hip Chivo Kelly N.P. 10/24/2018 F33.9 Major depressive disorder, recurrent, Chivo Kelly, N.P. 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 10/24/2018 R60.0 Localized edema Chivo Kelly N.PAndrea 10/24/2018 I71.4 Abdominal aortic aneurysm, without rupture Chivo Kelly N.PAndrea 10/24/2018 N95.9 Unspecified menopausal and perimenopausal Chivo Kelly N.PAndrea disorder 10/24/2018 K59.00 Constipation, unspecified Chivo Kelly N.P. 10/24/2018 E55.9 Vitamin D deficiency, unspecified Chivo Kelly N.P. 10/24/2018 R05 Cough Chivo Kelly N.P. 10/24/2018 R06.02 Shortness of breath Chivo Kelly N.PAndrea 10/24/2018 M25.562 Pain in left knee Chivo Kelly N.P. 10/24/2018 R07.9 Chest pain, unspecified Chivo Kelly N.P. 10/05/2018 I10 Essential (primary) hypertension Chivo Kelly N.PAndrea 10/05/2018 E03.9 Hypothyroidism, unspecified Chivo Kelly N.P. 10/05/2018 E78.2 Mixed hyperlipidemia Chivo Kelly N.P. 10/05/2018 I73.9 Peripheral vascular disease, unspecified Chivo Kelly N.P. 10/05/2018 I65.23 Occlusion and stenosis of bilateral carotid Chivo Kelly N.PAndrea arteries 10/05/2018 J44.9 Chronic obstructive pulmonary disease, Chivo Kelly N.P. unspecified 10/05/2018 R73.01 Impaired fasting glucose Chivo Kelly N.PAndrea 10/05/2018 M51.37 Other intervertebral disc degeneration, Chivo Kelly N.PAndrea lumbosacral region 10/05/2018 F02.80 Dementia in other diseases classified Chivo Kelly N.PAndrea elsewhere without beha 10/05/2018 F17.210 Nicotine dependence, cigarettes, Chivo Kelly N.PAndrea uncomplicated 10/05/2018 F41.9 Anxiety disorder, unspecified Chivo Kelly N.P. 10/05/2018 F31.9 Bipolar disorder, unspecified Chivo Kelly, N.P. 10/05/2018 M79.606 Pain in leg, unspecified Chivo Kelly, N.P. 10/05/2018 M25.559 Pain in unspecified hip Chivo Kelly, N.P. 10/05/2018 F33.9 Major depressive disorder, recurrent, Chivo Kelly, N.P. unspecified 10/05/2018 M15.9 Polyosteoarthritis, unspecified Chivo Kelly, N.P. 10/05/2018 M81.8 Other osteoporosis without current Chivo Kelly, N.P. pathological fracture 10/05/2018 R55 Syncope and collapse Chivo Kelly, N.P. 10/05/2018 L30.9 Dermatitis, unspecified Chivo Kelly, N.P. 10/05/2018 L20.9 Atopic dermatitis, unspecified Chivo Kelly, N.P. 10/05/2018 J30.9 Allergic rhinitis, unspecified Chivo Kelly N.P. 10/05/2018 R26.81 Unsteadiness on feet Chivo Kelly N.P. 10/05/2018 K21.0 Gastro-esophageal reflux disease with Chivo Kelly, N.P. esophagitis 10/05/2018 K30 Functional dyspepsia Chivo Kelly, N.P. 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 loss, bilateral 10/05/2018 G47.00 Insomnia, unspecified Chivo Kelly, N.P. 10/05/2018 R60.0 Localized edema Chivo Kelly N.P. 10/05/2018 I71.4 Abdominal aortic aneurysm, without rupture Chivo Kelly N.P. 10/05/2018 N95.9 Unspecified menopausal and perimenopausal Chivo Kelly, N.P. disorder 10/05/2018 K59.00 Constipation, unspecified Chivo Kelly, N.P. 10/05/2018 E55.9 Vitamin D deficiency, unspecified [...] 09/03/2018 J44.9 Chronic obstructive pulmonary disease, Chivo Kelly, N.P. unspecified 09/03/2018 R73.01 Impaired fasting glucose Chivo Kelly, N.P. 09/03/2018 M51.37 Other intervertebral disc degeneration, [...] without current Chivo Kelly, N.P. pathological fracture 09/03/2018 R55 Syncope and collapse Chivo Kelly, N.P. 09/03/2018 L30.9 Dermatitis, unspecified Chivo Kelly, N.P. 09/03/2018 L20.9 Atopic dermatitis, unspecified Chivo Kelly, N.P. 09/03/2018 J30.9 Allergic rhinitis, unspecified Chivo Kelly, N.P. 09/03/2018 R26.81 Unsteadiness on feet Chivo Kelly, N.P. 09/03/2018 K21.0 Gastro-esophageal reflux disease with Chivo Kelly, N.P. esophagitis 09/03/2018 K30 Functional dyspepsia Chivo Kelly, N.P. 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 loss, bilateral 09/03/2018 G47.00 Insomnia, unspecified Chivo Kelly, N.P. 09/03/2018 R60.0 Localized edema Chivo Kelly N.P. 09/03/2018 I71.4 Abdominal aortic aneurysm, without rupture Chivo Kelly N.P. 09/03/2018 N95.9 Unspecified menopausal and perimenopausal Chivo Kelly, N.P. disorder 09/03/2018 K59.00 Constipation, unspecified Chivo Kelly, N.P. 09/03/2018 E55.9 Vitamin D deficiency, unspecified Chivo Kelly N.P. 09/03/2018 R05 Cough Chivo Kelly, N.P. [...] Blayne Bravo M.D. 05/31/2018 L30.9 Dermatitis, unspecified Balyne Bravo M.D. 05/31/2018 L20.9 Atopic dermatitis, unspecified [...] Bravo M.D. 05/31/2018 R07.9 Chest pain, unspecified Blayen Bravo M.D. 05/31/2018 H61.21 Impacted cerumen, right ear Blayne Bravo M.D. Plan of Treatment Future Appointment(s):11/30/2018 11:00 am - Chivo Kelly N.P. at [facility] Functional Status Description No Information Available Mental Status Description No Information Available Referrals Refer to Reason for Referral Status Appt Date Jason Cornell MD Closed 11/14/2018 Interventional Radiologist [address] [place], [place] [id number] [phone]
--- NOTE | 2018-12-18 20:04 | UC ---
Minor Trauma HPI - HPI Summary HPI Summary: SLIPPED ON BOTTOM STEP OF HER PORCH AND FELL [place] ON THE RIGHT SIDE OF HER FACE AND HER RIGHT ARM. NO LOC. HAS BRUISING AND AN ABRASION AROUND HER RIGHT EYE/PRESYBETERIAN. NOTICEABLE DEFORMITY TO RIGHT FOREARM/WRIST WITH BRUISING. UP-TO-DATE TETANUS WITHIN THE LAST 5 YEARS. PATIENT DENIES HEADACHE, NAUSEA. VISION SLIGHTLY BLURRY BUT THIS MAY BE BASELINE. - History of Current Complaint Chief Complaint: UCUpperExtremity Stated Complaint: WRIST AND BACK INJURY Time Seen by Provider: 12/18/18 17:56 Hx Obtained From: Patient, Family/Email Marketing Manager - DAUGHTERS X2 Onset/Duration: Sudden Onset, Lasting Hours, Still Present Onset Of Pain: Immediate Severity Initially: Moderate Severity Currently: Moderate Pain Intensity: 10 Pain Scale Used: 0-10 Numeric Mechanism Of Injury: Fall From A Standing Position Aggravating Factor(s): Nothing Alleviating Factor(s): Nothing Associated Signs And Symptoms: Positive: Ecchymosis, Swelling. Negative: Loss Of Consciousness - Allergies/Home Medications Allergies/Adverse Reactions: Allergies Allergy/AdvReac Type Severity Reaction Status Date / Time Penicillins Allergy Hives Verified 12/18/18 17:19 PMH/Surg Hx/FS Hx/Imm Hx - Additional Past Medical History Additional PMH: CHRONIC BACK PAIN Endocrine History: Hypothyroidism Cardiovascular History: Hypertension - Surgical History Surgical History: Yes Surgery Procedure, Year, and Place: 3 - THRYOID SURG - FINAL - THYROIDECTOMY. HYSTERECTOMY. CHOLECYTECTOMY. BROKEN ARM/SHOULDER RIGHT JUNE 2014,left neck ? carotids - Family History Known Family History: Positive: Hypertension, Other - Sister: Aneurysm - Social History Alcohol Use: None Substance Use Type: None Smoking Status (MU): Former Smoker Type: Cigarettes Amount Used/How Often: 1 ppd Have You Smoked in the Last Year: Yes When Did the Patient Quit Smoking/Using Tobacco: one month ago Review of Systems All Other Systems Reviewed And Are Negative: Yes Constitutional: Positive: Negative Skin: Positive: Bruising Eyes: Positive: Blurred Vision ENT: Positive: Negative Respiratory: Positive: Negative Cardiovascular: Positive: Negative Gastrointestinal: Positive: Negative Neurological: Positive: Headache Physical Exam Triage Information Reviewed: Yes Appearance: Well-Appearing, No Pain Distress, Well-Nourished Vital Signs: Initial Vital Signs Temp 98.8 F 10/29/19 17:13 Pulse 73 12/18/18 17:13 Resp 16 12/18/18 17:13 Pulse Ox 98 12/18/18 17:13 Vital Signs Reviewed: Yes Eyes: Positive: Conjunctiva Clear, Other: - PERRL, EOMI. Negative: Discharge ENT: Positive: Hearing grossly normal, Pharynx normal, TMs normal, Other - MINIMAL CRUSTED BLOOD RIGHT NARE. NO SEPTAL HEMATOMA. GOOD AIR MOVEMENT BILATERAL NARES. NOT TENDER OVER BRIDGE OF NOSE Neck: Positive: Supple Respiratory Exam: Normal Cardiovascular Exam: Normal Abdomen Description: Positive: Soft Musculoskeletal: Positive: ROM Limited @ - RIGHT ARM/WRIST, Edema @ - RIGHT WRIST, Other: - TTP RIGHT DISTAL FORARM AND WRIST WITH DEFORMITY Neurological: Positive: Alert, Other: - CN II-XII GROSSLY INTACT BILATERALLY. ALERT AND ORIENTED. Psychological: Positive: Normal Response To Family, Age Appropriate Behavior Skin: Positive: Other - BRUISING RIGHT PERIORBITALLY WITH SPFL ABRASION RIGHT PRESYBETERIAN. Procedures - Splinting Right Upper Extremity Hand-Made Type: orthoglass Splint: sugar-tong Pre-Proc Neuro Vasc Exam: normal Post-Proc Neuro Vasc Exam: normal Splint Applied by Provider: [facility] - Radiology CT BRAIN W/O CONTRAST Radiology Interpretation Completed By: Radiologist Summary of Radiographic Findings: NO ACUTE INTRACRANIAL ABNORMALITY. CT MAX/FACE W/O CONTRAST Radiology Interpretation Completed By: Radiologist Summary of Radiographic Findings: ACUTE FRACTURE OF THE ANTERIOR AND POSTERIOR WALL OF THE RIGHT MAXILLARY SINUS. ACUTE FRACTURE OF THE FLOOR OF RIGHT ORBIT. RIGHT WRIST/FOREARM XRAYS Radiology Interpretation Completed By: ED Physician Summary of Radiographic Findings: SLIGHTLY DISPLACED FRACTURE DISTAL ULNA. BUCKLE FRACTURE DISTAL RADIUS Minor Trauma Course/Dx - Course Course Of Treatment: PATIENT WITH SLIGHTLY DISPLACED RIGHT ULNAR FRACTURE AND BUCKLE FRACTURE RIGHT DISTAL RADIUS ON MY INITIAL INTERPRETATION OF THE X-RAYS. OFFICIAL RADIOLOGY READ IS PENDING. SUGAR TONG SPLINT AND SLING APPLIED BY M.Josef F/U ORTHO. CT OF THE MAXILLOFACIAL BONES SHOWS FRACTURES TO THE RIGHT MAXILLARY SINUS WELL TO THE RIGHT ORBITAL FLOOR. SHE HAS NO PAIN WITH EXTRAOCULAR MOVEMENTS. NO EXOPHTHALMUS. WILL PLACE AN ANTIBIOTICS AND HAVE PATIENT FOLLOW-UP WITH MAXILLOFACIAL SURGERY TOMORROW. SHE ALREADY HAS HYDROCODONE AT HOME THAT SHE USES NEEDED FOR DISCOMFORT. I ADVISED NO NSAIDS FOR THE FIRST 24 HOURS DUE TO INCREASED RISK OF BLEEDING. CT BRAIN UNREMARKABLE. - Differential Dx/Diagnosis Provider Diagnosis: Right distal ulnar fracture, Buckle fracture of distal end of right radius, Maxillary sinus fracture, Fracture of right orbital floor Discharge ED - Sign-Out/Discharge Documenting (check all that apply): Patient Departure All imaging exams completed and their final reports reviewed: No - Discharge Plan Condition: Stable Disposition: HOME Prescriptions: Azithromycin 500 mg PO DAILY #4 tablet Patient Education Materials: Arm Fracture in Adults (ED), Facial Fracture (ED) Referrals: Blayne Bravo MD [Primary Care Provider] - If Needed Monroe Small MD [Medical Doctor] - 1 Day Additional Instructions: CT OF THE BRAIN SHOWED NO ACUTE INTRACRANIAL ABNORMALITY. CT OF THE MAXILLOFACIAL BONES SHOWED ACUTE FRACTURE OF THE ANTERIOR AND POSTERIOR WALL OF THE RIGHT MAXILLARY SINUS. ACUTE FRACTURE OF THE FLOOR OF RIGHT ORBIT. TAKE THE ANTIBIOTICS PRESCRIBED. USE YOUR HYDROCODONE NEEDED FOR DISCOMFORT. DO NOT EXCEED 3000MG TYLENOL FROM ALL SOURCES IN A 24 HOUR PERIOD. I RECOMMEND NO NSAIDS FOR THE FIRST 24 HOURS. FOLLOW-UP WITH MAXILLOFACIAL SURGERY TOMORROW. GO TO THE ER WITHOUT FAIL IF YOU DEVELOP PAIN WITH EYE MOVEMENTS, INABILITY TO MOVE YOUR EYE, VISUAL DISTURBANCE, BULGING OF THE EYE OR ANY OTHER CONCERNING SYMPTOMS. YOU ALSO HAVE SUSTAINED A FRACTURE TO YOUR RIGHT ULNA AND A PROBABLE BUCKLE FRACTURE OF YOUR RIGHT RADIUS. CALL ORTHOPEDICS FIRST THING IN THE MORNING TO SCHEDULE FOLLOW-UP APPOINTMENT. KEEP THE SPLINT AND SLING ON UNTIL SEEN BY ORTHOPEDICS. ORAL SURGERY [facility] Oral Surgery Chris Lopez [address] [place] [id number] [facility] Yahir Harris Jr., D.D.S. [address], [address] [place] [address] - Billing Disposition and Condition Condition: STABLE Disposition: Home
[2018-12-18] MEDS ORDERED: Azithromycin TAB* 250 MG PO ONE (20:07)
--- NOTE | 2018-12-19 11:05 | UC ---
- Progress Note Progress Note: RADIOLOGY REPORTS REVIEWED. CONFIRMS SLIGHTLY IMPACTED FRACTURE OF THE DISTAL RADIUS. SLIGHTLY DISPLACED FRACTURE OF THE DISTAL DIAPHYSIS OF THE ULNA. FOLLOW-UP OR THROUGH ADVISED. NO CHANGE IN MANAGEMENT. Course/Dx - Diagnoses Provider Diagnoses: Right distal ulnar fracture, Buckle fracture of distal end of right radius, Maxillary sinus fracture, Fracture of right orbital floor Discharge ED - Sign-Out/Discharge Documenting (check all that apply): Post-Discharge Follow Up All imaging exams completed and their final reports reviewed: Yes - Discharge Plan Condition: Stable Disposition: HOME Prescriptions: Azithromycin 500 mg PO DAILY #4 tablet Patient Education Materials: Arm Fracture in Adults (ED), Facial Fracture (ED) Referrals: Blayne Bravo MD [Primary Care Provider] - If Needed Monroe Small MD [Medical Doctor] - 1 Day Additional Instructions: CT OF THE BRAIN SHOWED NO ACUTE INTRACRANIAL ABNORMALITY. CT OF THE MAXILLOFACIAL BONES SHOWED ACUTE FRACTURE OF THE ANTERIOR AND POSTERIOR WALL OF THE RIGHT MAXILLARY SINUS. ACUTE FRACTURE OF THE FLOOR OF RIGHT ORBIT. TAKE THE ANTIBIOTICS PRESCRIBED. USE YOUR HYDROCODONE NEEDED FOR DISCOMFORT. DO NOT EXCEED 3000MG TYLENOL FROM ALL SOURCES IN A 24 HOUR PERIOD. I RECOMMEND NO NSAIDS FOR THE FIRST 24 HOURS. FOLLOW-UP WITH MAXILLOFACIAL SURGERY TOMORROW. GO TO THE ER WITHOUT FAIL IF YOU DEVELOP PAIN WITH EYE MOVEMENTS, INABILITY TO MOVE YOUR EYE, VISUAL DISTURBANCE, BULGING OF THE EYE OR ANY OTHER CONCERNING SYMPTOMS. YOU ALSO HAVE SUSTAINED A FRACTURE TO YOUR RIGHT ULNA AND A PROBABLE BUCKLE FRACTURE OF YOUR RIGHT RADIUS. CALL ORTHOPEDICS FIRST THING IN THE MORNING TO SCHEDULE FOLLOW-UP APPOINTMENT. KEEP THE SPLINT AND SLING ON UNTIL SEEN BY ORTHOPEDICS. ORAL SURGERY [facility] Oral Surgery Chris Lopez [address] [place] [address] [facility] Yahir Harris Jr., Aramis.S. [address], [address] [place] [address] - Billing Disposition and Condition Condition: STABLE Disposition: Home
== END 2018-12-18 20:27 | disposition home or self-care (01) ==
LOC: UCEAST 16:30
DX: S52.601A Unspecified fracture of lower end of right ulna, initial encounter for closed fracture (principal); S52.521A Torus fracture of lower end of right radius, initial encounter for closed fracture; S02.40CA Maxillary fracture, right side, initial encounter for closed fracture; S02.31XA Fracture of orbital floor, right side, initial encounter for closed fracture; M54.9 Dorsalgia, unspecified; G89.29 Other chronic pain; I10 Essential (primary) hypertension; Z87.891 Personal history of nicotine dependence; Z88.0 Allergy status to penicillin; W10.9XXA Fall (on) (from) unspecified stairs and steps, initial encounter; Y92.89 Other specified places as the place of occurrence of the external cause
CPT/HCPCS: 70450; 70486; 99212; A9270-GY; G0463

== ENCOUNTER 2019-01-12 14:14 | Emergency (ER) | payer MEDICARE ==
--- OUTSIDE RECORDS SUMMARY | 2019-01-12 14:28 | XMS REPORT | Summary of Care ---
:1935 Author Organization [facility] Address [address] [place] [address] Care Team Providers Name Role Phone Blayne Bravo MD Primary Care Provider Reason for Referral Consultation (Routine) Status Reason Specialty Diagnoses / Referred By Referred To Procedures Contact Contact Authorized Specialty Ophthalmology Diagnoses Closed fracture of orbit with routine healing, subsequent encounter [facility] Required [facility] [address] [place] [phone] [address] Phone: [place], [place] [phone] Fax: Email: Fax: [email or web address] [phone] [facility] Reason for Visit Reason Comments Follow-up ED follow up facial fx's Encounter Details Date Type Department Care Team Description 12/27/2018 Office Visit ENT Clinic Faith Young NP Closed fracture of orbit with routine healing, subsequent encounter (Primary Dx); [address] [place] [address] [facility] Closed fracture of right side of maxilla with routine healing, subsequent encounter; [address] Closed fracture of right zygomatic arch with routine healing, [place] [phone] Allergies Active Allergy Reactions Severity Noted Date Comments Penicillin G Hives High 11/11/2015 Penicillins Hives 01/21/2014 documented as of this encounter (statuses as of 01/03/2019) Medications Medication Sig Dispensed Refills Start Date End Date Status aspirin 81 MG tablet Take 162 mg by 0 Active mouth Two Times Daily fluoxetine (PROZAC) Take 60 mg by 0 Active 20 MG capsule mouth levothyroxine Take 100 mcg by 0 Active (SYNTHROID, mouth Daily LEVOTHROID) 100 MCG tablet lisinopril Take 20 mg by 0 Active (PRINIVIL,ZESTRIL) 20 mouth daily MG tablet omeprazole (PRILOSEC) Take 20 mg by 3 11/29/2018 Active 20 MG capsule mouth daily loratadine (CLARITIN) Take 10 mg by 3 11/23/2018 Active 10 MG tablet mouth daily amlodipine (NORVASC) Take 10 mg by 0 11/23/2018 Active 10 MG tablet mouth daily sertraline (ZOLOFT) Take 100 mg by 0 Active 100 MG tablet mouth atorvastatin Take 40 mg by 0 07/13/2014 Active (LIPITOR) 40 MG mouth tablet HYDROcodone-acetamino Take 2 tablets by 0 Active phen (LORTAB) 5-325 mouth Two Times MG per tablet Daily sodium chloride 1 spray by Nasal 15 mL 12 12/19/2018 12/18/2019 Active (OCEAN) 0.65 % nasal route as needed spray for Congestion documented as of this encounter (statuses as of 01/03/2019) Active Problems Problem Noted Date Fracture, Colles, right, closed 12/26/2018 Closed nondisplaced spiral fracture of shaft of right ulna 12/26/2018 Arthritis of knee 08/15/2016 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 Small vessel disease, cerebrovascular 08/15/2016 Acquired hypothyroidism 08/15/2016 Carotid stenosis, asymptomatic 05/20/2016 Arteriosclerosis of artery of extremity 11/11/2015 Occlusion of carotid artery 11/11/2015 Wedge fracture of lumbar vertebra 08/13/2015 Back pain 07/10/2015 Abdominal aortic aneurysm (AAA) without rupture 07/03/2015 Atherosclerosis of [place] artery of extremity 02/06/2015 Stenosis of left carotid artery 02/06/2015 Tobacco use 02/06/2015 documented as of this encounter (statuses as of 01/03/2019) Social History Tobacco Use Types Packs/Day Years Used Date Former Smoker Cigarettes 0.25 60 Smokeless Tobacco: Never Used Alcohol Use Drinks/Week oz/Week Comments No Sex Assigned at Date Recorded Not on file Job Start Date Occupation Industry Not on file Not on file Not on file Travel History Travel Start Travel End No recent travel history available. documented as of this encounter Last Filed Vital Signs Vital Sign Reading Time Taken Comments Blood Pressure 152/78 12/27/2018 10:38 AM EST Pulse 61 12/27/2018 10:38 AM EST Temperature 36.8 12/27/2018 10:38 AM EST C (98.3 F) Respiratory Rate 16 12/27/2018 10:38 AM EST Oxygen Saturation 92% 12/27/2018 10:38 AM EST Inhaled Oxygen Concentration - - Weight 58.5 kg (129 lb) 12/27/2018 10:38 AM EST Height 152.4 cm (5') 12/27/2018 10:38 AM EST Body Mass Index 25.19 12/27/2018 10:38 AM EST documented in this encounter Progress Notes Faith Young, [facility] - 12/27/2018 11:00 AM EST Otolaryngology visit, ED follow up: Accompanied by daughter Francisca HPI: Olivia is a 83 yr old f who presents to clinic for ED follow up for facial fractures on 12/19/18. She sustained trauma to the right face as a result of fall from 1 step onto wooden table. +LOC. CT max face at OSH demonstrates right facial fractures of anterior and lateral maxillary santos, orbital floor and zygomatic arch consistent with right ZMC fracture. When seen in the ED, patient denies trismus, headache, diplopia, blurred vision, pain with eye movements, n/v, epistaxis, dyspnea, or malocclusion (with dentures). Patient does endorse pain when opening mouth on right, but not when talking. Following nasal precautions. Prescribed Saline nasal spray prn congestion. CT Max/Face 12/19/18: From ED consult visit: No read available, done at OSH - in synTemp. Minimal displacement of right lateral orbital floor fracture, right anterior maxillary sinus fracture, right lateral wall maxillary sinus fracture and right posterior zygomatic arch. The patient's PMH, PSH, Allergies, Medications, SH, FH, are all updated and noted in the EMR. ROS: Pertinent positive and negatives are listed above in the HPI. Visit Vitals BP 152/78 Pulse 61 Temp 36.8 C (98.3 F) (Oral) Resp 16 Ht 1.524 m (5') Wt 58.5 kg (129 lb) SpO2 92% BMI 25.19 kg/m Exam: General: Alert and oriented x 3. Conversant. No stridor/stertor. Voice strong and clear. Head: NC/AT Skin: No cutaneous lesions, or masses. Lungs: Nonlabored breathing, no wheezes. Eyes: PERRLA, EOMI, right orbit no step offs, nontender, no swelling. Nose: External nose unremarkable. Anterior nares clear bilaterally. Ears: Auricles unremarkable. EACs clear. Cerumen left EAC. TMs intact, no perforation, effusion, or retraction. Oral cavity/Oropharynx: Tongue midline, palate rise and uvula symmetric. Premorbid occlusion. Face: Symmetric. CN V and VII intact. Right maxilla dn right zygomatic arch, nontender, no step offs. Swelling and bruising to right face and neck. Neck: Supple, trachea midline. No LAD. Assessment: Olivia is a 83 yr old f who presented to clinic for Closed fractures of right orbit, right side of maxilla, and right zygomatic arch with routine healing. Overall fractures are healing and are non-operative. Plan: -Continue nasal precautions for 5 more weeks -Referral to Ophthalmology, appointment made today and was seen, condition stable, advised to followup with Dr. Walter her Numerical Control Tool Programmer in [place]. -Follow up as needed, per patient and daughter's requests because it is a long drive. They will callwith any questions or concerns. documented in this encounter Plan of Treatment Name Type Priority Associated Order Schedule Diagnoses Referral to Outpatient Referral Routine Closed fracture of Ordered: Ophthalmology orbit with routine 12/27/2018 healing, subsequent encounter Health Maintenance Due Date Last Done Comments MMR Vaccines (1 of 1 - Standard 1938 series) DTaP,Tdap,and Td Vaccines (1 - 1944 Tdap) Zoster Vaccines (1 of 2) 07/20/1987 Osteoporosis Screening 2 yr 2002 Pneumococcal Vaccine: 65+ Years (1 2002 of 2 - PCV13) Influenza Vaccine 11/20/2018 HIB Vaccines Aged Out No longer eligible based on patient's age to complete this topic Hepatitis A Vaccines Aged Out No longer eligible based on patient's age to complete this topic Hepatitis B Vaccines Aged Out No longer eligible based on patient's age to complete this topic IPV Vaccines Aged Out No longer eligible based on patient's age to complete this topic Pneumococcal Vaccine: Pediatrics Aged Out No longer eligible based on (0 to 5 Years) and At-Risk patient's age to complete this Patients (6 to 64 Years) topic Varicella Vaccines Aged Out No longer eligible based on patient's age to complete this topic documented as of this encounter Implants Implanted Type Area Visual Education Director Device Shelf Model / Identifier Expiration Serial / Date Lot Patch Vasc Xenosure [id number] - [id number] Left: LEMAITRE 11/17/2021 [id number] / Implanted: Qty: 1 on 05/20/2016 by Bill Navarro MD at OR 5E Carotid VASCULAR [id number] / [id number] documented as of this encounter Results Not on filedocumented in this encounter Visit Diagnoses Diagnosis Closed fracture of orbit with routine healing, subsequent encounter - Primary Closed fracture of right side of maxilla with routine healing, subsequent encounter Closed fracture of right zygomatic arch with routine healing, subsequent encounter documented in this encounter
--- OUTSIDE RECORDS SUMMARY | 2019-01-12 14:28 | XMS REPORT | Continuity of Care Document ---
:1935 External Reference #:[id number] Author Name Aspen Haney M.D. 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 Onset: 11/14/2018 Intermittent claudication due to Jason Cornell M.D. Onset: 11/14/2018 atherosclerosis of [place] artery of limb Peripheral vascular disease Jason Cornell M.D. Onset: 05/05/2016 Social History Type Date Description Comments Sex Unknown Tobacco Use Start: Unknown quit 11/10/18 ETOH Use Denies alcohol use Recreational Drug Use Denies Drug Use Tobacco Use Start: Unknown End: Patient is a former Pt quit 11/10/18 Unknown smoker Smoking Status Reviewed: 01/02/19 Patient is a former Pt quit 11/10/18 [...] Inj, Regadenoson, 0.1 MG Rene Martel, DO [facility] 11/05/2014 Injection Technetium TC 99M Rene Martel, DO [facility] 11/05/2014 Tetrofosmin, Per Unit Dose Up To 40 Millicuries Injection Immunizations Description No Information Available Vital Signs Date Vital Result Comment 01/02/2019 3:23pm Height 62 inches 5'2" Weight 126.00 lb Heart Rate 73 /min Body Temperature 96.0 F O2 % BldC Oximetry 96 % BMI (Body Mass Index) 23.0 kg/m2 11/14/2018 11:13am Height 61 inches 5'1" Weight 126.38 lb with shoes Heart Rate 78 /min radial BP Systolic Sitting 170 mmHg Lue reg cuff BP Diastolic Sitting 100 mmHg Lue reg cuff BP Systolic Standing 170 mmHg Rue reg cuff sitting BP Diastolic Standing 100 mmHg Rue reg cuff sitting BMI (Body Mass Index) 23.9 kg/m2 Results Test Acquired Date Facility Test Result H/L Range Note Basic Metabolic 11/20/2018 [facility] Sodium 138 mmol/L Normal 135-145 [address] [place] [address] [phone] Potassium 4.5 mmol/L Normal 3.5-5.0 Chloride 103 [...] 11/14/2018 [facility] Jason Cornell, I70.213 Athscl [place] 11:00a [facility] arteries of extrm w intrmt rhonda, bi legs I50.20 Unspecified systolic (congestive) heart failure I10 Essential (primary) hypertension Assessments Date Code Description Provider 01/02/2019 S52.201A Unspecified fracture of shaft of right Aspen Haney M.D. ulna, initial encounter for closed fracture 11/14/2018 I70.213 Atherosclerosis of [place] arteries of Jason Cornell M.D. extremities with intermittent claudication, bilateral legs 11/14/2018 I50.20 Unspecified systolic (congestive) heart Jason Cornell M.D. failure 11/14/2018 I10 Essential (primary) hypertension Jason Cornell M.D. Plan of Treatment 01/02/2019 - Aspen Haney M.D.S52.201A Unspecified fracture of shaft of right ulna, initial encounter for closed fractureNew Xrays:Wrist Right 3+ VWS, Ordered: 01/02/19Follow up:Follow up: 2-3 weeks Functional Status Description No Information Available Mental Status Description No Information Available Referrals Description No Information Available
--- OUTSIDE RECORDS SUMMARY | 2019-01-12 14:28 | XMS REPORT | Summary of Care ---
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 [address] Provider-Based [address] [place] [id number] [address] Phone: [place], [place] [phone] Fax: Email: Fax: [email or web address] [phone] [facility] Encounter Details Date Type Department Care Team Description 12/27/2018 Office Visit [place] Werner Corona Closed fracture of Vision Care MD Jeanine right orbital floor, [address] [place] [address] Ctr initial encounter [address] (Primary Dx) [place] [id number] [phone] Allergies Active Allergy Reactions Severity Noted Date Comments Penicillin G Hives High 11/11/2015 Penicillins Hives 01/21/2014 documented as of this encounter (statuses as of 12/31/2018) Medications Medication Sig Dispensed Refills Start Date [...] nasal route as needed spray for [facility], Clinic, or Ordered Dose Route Frequency Start Date End Date Status Other Facility Administered Medication proparacaine (ALCAINE) 1 drop Both Eyes Once 12/27/2018 12/27/2018 Ended 0.5 % ophthalmic solution 1 drop tropicamide (MYDRIACYL) 1 drop Both Eyes Once 12/27/2018 12/27/2018 Ended 1 % ophthalmic solution 1 drop phenylephrine (MYDFRIN) 1 drop Both Eyes Once 12/27/2018 12/27/2018 Ended 2.5 % ophthalmic solution 1 drop documented as of this encounter (statuses as of 12/31/2018) Active Problems Problem Noted Date Fracture, Colles, [...] aneurysm (AAA) without rupture 07/03/2015 Atherosclerosis of [place] artery of extremity 02/06/2015 Stenosis of left carotid artery 02/06/2015 Tobacco use 02/06/2015 documented as of this encounter (statuses as of 12/31/2018) Social History Tobacco Use Types Packs/Day Years [...] of this encounter Last Filed Vital Signs Not on filedocumented in this encounter Progress Notes Werner Lopez MD - 12/27/2018 12:00 PM EST Chief Complaint Patient presents with Orbital Fracture HPI Orbital Fracture In right eye. Duration of 1 week. Since onset it is stable. Associated symptoms include swelling. Comments New pt ED f/u Hx: PICOL OU x 5yrs Pt states last Monday afternoon fell and hit the right side of face causing orbital fx. Pt states feeling better no pain , flashes or floaters ,no headaches , just a little swollen around the right cheek and tender to the touch. Last eye exam was 2yrs ago. Last edited by Madyson Black on 12/27/2018 12:00 PM. (History) History: Patient's medications, allergies, past medical, surgical, social, and family histories werereviewed and updated as appropriate. Past Surgical History: Procedure Laterality Date BACK SURGERY 2016 fusion CAROTID ARTERY ANGIOPLASTY CHOLECYSTECTOMY compressed fx back 2016 HYSTERECTOMY Myringotomy 07/14/2016 [place] THROMBOENDARTECTMY NECK,NECK INCIS Left 05/20/2016 Procedure: LEFT CAROTID ENDARTERECTOMY; Surgeon: Bill Navarro MD; Location: OR 5E; Service: Vascular; Laterality: Left; SHOULDER SURGERY Right 2013 SHOULDER SURGERY THYROIDECTOMY THYROIDECTOMY 1979 Past Medical History: Diagnosis Date AAA (abdominal aortic aneurysm) Anxiety Bipolar 1 disorder Closed fracture of surgical neck of right humerus COPD (chronic obstructive pulmonary disease) Dementia Depression High cholesterol Hypertension Hypothyroidism Low blood pressure Occlusion and stenosis of bilateral carotid arteries Osteoporosis Osteoporosis PVD (peripheral vascular disease) Scoliosis Thyroid disease Tobacco use Unspecified atherosclerosis of [place] arteries of extremities, bilateral legs Family History Problem Relation Age of Onset Angina Mother Cancer Father colon Diabetes Father Thyroid disease Daughter Hyperlipidemia Daughter Hypertension Daughter No Known Problems Daughter Social History Socioeconomic History Marital status: Spouse name: Not on file Number of children: 3 Years of education: Not on file Highest education level: Not on file Occupational History Not on file Social Needs Financial resource strain: Not on file Food insecurity: Worry: Not on file Inability: Not on file Transportation needs: Medical: Not on file Non-medical: Not on file Tobacco Use Smoking status: Former Smoker Packs/day: 0.25 Years: 60.00 Pack years: 15.00 Types: Cigarettes Smokeless tobacco: Never Used Substance and Sexual Activity Alcohol use: No Drug use: No Sexual activity: Not on file Lifestyle Physical activity: Days per week: Not on file Minutes per session: Not on file Stress: Not on file Relationships Social connections: Talks on phone: Not on file Gets together: Not on file Attends temple service: Not on file Active member of club or organization: Not on file Attends meetings of clubs or organizations: Not on file Relationship status: Not on file Intimate partner violence: Fear of current or ex partner: Not on file Emotionally abused: Not on file Physically abused: Not on file Forced sexual activity: Not on file Other Topics Concern Not on file Social History Narrative Lives with Review of Systems: positive for Eyes All other systems have been reviewed and are negative. OPHTH Exam: Base Eye Exam Visual Acuity (Snellen - Linear) Right Left Dist sc 20/20 -1 20/40 Dist ph sc 20/30 -3 Tonometry (Tonopen, 12:30 PM) Right Left Pressure 10 10 Pupils Dark Light React APD Right 3 2 Brisk None Left 3 Brisk +1 Visual Stearns Left Right Full Full Extraocular Movement Right Left Full Full Neuro/Psych Oriented x3: Yes Mood/Affect: Normal Dilation Both eyes: 1.0% Tropicamide/2.5% Phenylephrine @ 12:34 PM Slit Lamp and Fundus Exam External Exam Right Left External Normal Normal Slit Lamp Exam Right Left Lids/Lashes Normal Normal Conjunctiva/Sclera White and Quiet White and Quiet Cornea Clear, 1+ SPK Clear 1+ SPK Anterior Chamber Deep and Quiet Deep and Quiet Iris Flat, Round Flat, Round Lens PCIOL, tr PCO PCIOL, tr PCO Vitreous Clear Clear Fundus Exam Right Left Disc Sharp and [place] pallor C/D Ratio 0.2 0.2 Macula Normal Normal Vessels Normal Normal Periphery Flat x 4 Quadrants, No Holes, Tears, or Detachments Flat x 4 Quadrants, No Holes, Tears, or Detachments Refraction Manifest Refraction (Auto) Sphere Cylinder Leon Dist VA Add Near VA Right -0.50 Sphere Left -1.50 +3.00 014 Manifest Refraction #2 Sphere Cylinder Leon Dist VA Add Near VA Right [place] +0.25 026 20/25 +2.75 J1 Left -1.50 +2.50 179 20/40 +2.75 J1 We administered proparacaine, tropicamide, and phenylephrine. The following tests were performed today and reviewed with the patient (for the professional interpretation refer to the Oph Proc tab in chart review): DX/Plan: Olivia Morris is a 83 y.o. female with: # Ocular trauma, right eye ground vs Eye on 12/18/2018 No evidence of globe rupture # Orbital fracture(s) involving orbital floor, medial wall and lateral wall. CT [facility] no official read available There is not clinical evidence of entrapment. There is not indication for emergent repair from ophthalmic standpoint. No diplopia, EOMS FULL Monitor # PCIOL Greater than 5 years ago, with Dr. Walter in [place] # Optic Pallor OS Pt reports stable and follows with Dr. Walter ?previous episode of NAION Continue to follow with Dr. Walter Counseling provided for the following issues, either verbally and/or hand-out: N /A Seen with ELANA Dubose Resident's history reviewed, patient interviewed and examined. I agree. On exam I find: no diplopia. Finds as documented. Assessment and plan reviewed with resident. I agree with the diagnosis and treatment plan as documented by the resident. Elana Garcia MD Patient to call with any change, concern, or new ophthalmic or eye related issues. F/U: Return if symptoms worsen or fail to improve. Dilate yes Werner Lopez M.D. documented in this encounter Plan of Treatment Health Maintenance Due Date Last Done Comments [...] of this encounter Implants Implanted Type Area Health Information Provider Device Shelf Model / Identifier Expiration Serial / Date Lot Patch Vasc Xenosure [id number] - [id number] Left: LEMAITRE 11/17/2021 [id number] / Implanted: Qty: 1 on 05/20/2016 by Bill Navarro MD at OR 5[facility] Carotid VASCULAR [id number] / [id number] documented as of this encounter Results Not on filedocumented in this encounter Visit Diagnoses Diagnosis Closed fracture of right orbital floor, initial encounter - Primary documented in this encounter Administered Medications Medication Order MAR Action Action Date Dose Rate Site phenylephrine (MYDFRIN) 2.5 % Given 12/27/2018 12:28 PM EST 1 drop ophthalmic solution 1 drop 1 drop, Both Eyes, Once, Keily 12/27/18 at 1215, For 1 dose proparacaine (ALCAINE) 0.5 % ophthalmic Given 12/27/2018 12:28 PM EST 1 drop solution 1 drop 1 drop, Both Eyes, Once, Keily 12/27/18 at 1215, For 1 dose tropicamide (MYDRIACYL) 1 % ophthalmic Given 12/27/2018 12:28 PM EST 1 drop solution 1 drop 1 drop, Both Eyes, Once, Keily 12/27/18 at 1215, For 1 dose documented in this encounter
--- OUTSIDE RECORDS SUMMARY | 2019-01-12 14:28 | XMS REPORT | Summary of Care ---
:1935 Author Organization [facility] Address [address] [place] [address] Care Team Providers Name Role Phone Blayne Bravo MD Primary Care Provider Reason for Visit Reason Comments New Patient ED f/u right wrist FX DOI 12/18/2018 reduced and casted in ED 12/19/2018 Encounter Details Date Type Department Care Team Description 12/26/2018 [facility], Right wrist pain (Primary Dx); [facility] Closed Colles' fracture of right radius, initial encounter; [address] Closed nondisplaced spiral fracture of shaft of right ulna, initial encounter [place], [place] [address] [id number] [facility] [phone] [place] [address] [phone] Allergies Active Allergy Reactions Severity Noted Date Comments Penicillin G Hives High 11/11/2015 Penicillins Hives 01/21/2014 documented as of this encounter (statuses as of 12/26/2018) Medications Medication Sig Dispensed Refills Start Date [...] as of this encounter (statuses as of 12/26/2018) Active Problems Problem Noted Date Fracture, Colles, [...] aneurysm (AAA) without rupture 07/03/2015 Atherosclerosis of [place] artery of extremity 02/06/2015 Stenosis of left carotid artery 02/06/2015 Tobacco use 02/06/2015 documented as of this encounter (statuses as of 12/26/2018) Social History Tobacco Use Types Packs/Day Years [...] Sign Reading Time Taken Comments Blood Pressure 129/60 12/26/2018 1:57 PM EST Pulse 70 12/26/2018 1:57 PM EST Temperature - - Respiratory Rate - - Oxygen Saturation - - Inhaled Oxygen Concentration - - Weight 58.5 kg (129 lb) 12/26/2018 1:57 PM EST Height 152.4 cm (5') 12/26/2018 1:57 PM EST Body Mass Index 25.19 12/26/2018 1:57 PM EST documented in this encounter Patient Instructions Patient InstructionsLetitia Fierro LPN - 12/26/2018 2:00 PM ESTThe patient is instructed to call the office with any question/concerns or if symptoms worsen. documented in this encounter Progress Notes Rene Muse MD - 12/26/2018 2:00 PM EST ORTHOPEDIC SURGERY CONSULT NOTE CHIEF COMPLAINT: Right wrist pain s/p fall HPI: Olivia Morris is a 83 y.o. female who sustained a fall from standing height one day prior. Patient states she was on a deck when she lost her balance, falling onto her right side. She presented to OSH today where she was found to have a right distal radius and ulnar shaft fractures. She was referred to the [facility] Emergency Department for further evaluation. Orthopedics was consulted for evaluation and management. She complains of moderate pain to her wrist. The onset of pain was immediate. She characterizes the pain as sharp and localized to both the radial and ulnar aspects of her right wrist. The pain is exacerbated by movement. It is partially relieved with rest. She denies other injuries to her extremities. She endorses being able to walk after the incident. She denies LOC. PAST MEDICAL HISTORY: Past Medical History: Diagnosis Date AAA (abdominal aortic aneurysm) Anxiety Bipolar 1 disorder Closed fracture of surgical neck of right humerus COPD (chronic obstructive pulmonary disease) Dementia Depression High cholesterol Hypertension Hypothyroidism Low blood pressure Occlusion and stenosis of bilateral carotid arteries Osteoporosis Osteoporosis PVD (peripheral vascular disease) Scoliosis Thyroid disease Tobacco use Unspecified atherosclerosis of [place] arteries of extremities, bilateral legs Past Surgical History: Procedure Laterality Date BACK SURGERY 2016 fusion CAROTID ARTERY ANGIOPLASTY CHOLECYSTECTOMY compressed fx back 2016 HYSTERECTOMY Myringotomy 07/14/2016 [place] THROMBOENDARTE[place] NECK,NECK INCIS Left 05/20/2016 Procedure: LEFT CAROTID ENDARTERECTOMY; Surgeon: Bill Navarro MD; Location: OR 5E; Service: Vascular; Laterality: Left; SHOULDER SURGERY Right 2013 SHOULDER SURGERY THYROIDECTOMY THYROIDECTOMY 1979 No current facility-administered medications on file prior to encounter. Current Outpatient Medications on File Prior to Encounter Medication Sig Dispense Refill atorvastatin (LIPITOR) 40 MG tablet Take 40 mg by mouth HYDROcodone-acetaminophen (LORTAB) 5-325 MG per tablet Take 2 tablets by mouth Two Times Daily levothyroxine (SYNTHROID, LEVOTHROID) 100 MCG tablet Take 100 mcg by mouth Daily lisinopril (PRINIVIL,ZESTRIL) 20 MG tablet Take 20 mg by mouth daily amlodipine (NORVASC) 10 MG tablet Take 10 mg by mouth daily 0 aspirin 81 MG tablet Take 162 mg by mouth Two Times Daily fluoxetine (PROZAC) 20 MG capsule Take 60 mg by mouth loratadine (CLARITIN) 10 MG tablet Take 10 mg by mouth daily 3 omeprazole (PRILOSEC) 20 MG capsule Take 20 mg by mouth daily 3 sertraline (ZOLOFT) 100 MG tablet Take 100 mg by mouth [DISCONTINUED] ALENDRONATE SODIUM PO Take 40 mg by mouth once a week [DISCONTINUED] alprazolam (XANAX) 0.25 MG tablet Take 0.25 mg by mouth nightly as needed forSleep [DISCONTINUED] atorvastatin (LIPITOR) 20 MG tablet Take 20 mg by mouth nightly [DISCONTINUED] benzonatate (TESSALON) 100 MG capsule Take 200 mg by mouth Three times daily as needed for Cough [DISCONTINUED] calcium carbonate (OS-PATRICK) 1250 (500 Ca) MG tablet Take 1 tablet by mouth daily [DISCONTINUED] cimetidine (TAGAMET) 300 MG tablet Take 300 mg by mouth Two Times Daily [DISCONTINUED] ciprofloxacin (CIPRO) 500 MG tablet Take 500 mg by mouth Two Times Daily [DISCONTINUED] Ciprofloxacin-Ciproflox HCl 500 MG tablet Take 500 mg by mouth daily [DISCONTINUED] clarithromycin (BIAXIN) 250 MG tablet Take 500 mg by mouth Two Times Daily [DISCONTINUED] clopidogrel (PLAVIX) 75 MG tablet Take 75 mg by mouth daily [DISCONTINUED] cyclobenzaprine (FLEXERIL) 10 MG tablet Take 5 mg by mouth Three times daily as needed for Muscle spasms [DISCONTINUED] estradiol (CLIMARA) 0.1 MG/24HR transdermal patch (weekly ) Place 1 patch onto the skin once a week [DISCONTINUED] fluoxetine (PROZAC) 20 MG/5ML solution Take 20 mg by mouth daily [DISCONTINUED] gabapentin (NEURONTIN) 300 MG capsule Take 300 capsules by mouth Three times daily [DISCONTINUED] HYDROcodone-acetaminophen (LORTAB) 5-325 MG per tablet Take 1 tablet by mouth every 6 (six) hours as needed for Pain [DISCONTINUED] ibuprofen (ADVIL,MOTRIN) 800 MG tablet Take 800 mg by mouth every 8 (eight) hours as needed for Pain [DISCONTINUED] levothyroxine (SYNTHROID, LEVOTHROID) 100 MCG tablet Take 100 mcg by mouth daily. [DISCONTINUED] lisinopril (PRINIVIL,ZESTRIL) 20 MG tablet Take 20 mg by mouth daily [DISCONTINUED] Menthol-Methyl Salicylate (GRX ANALGESIC BALM) OINT Apply topically as needed [DISCONTINUED] Multiple Vitamin (DAILY VITAMIN PO) Take by mouth [DISCONTINUED] Naproxen Sodium (ALEVE) 220 MG CAPS Take by mouth [DISCONTINUED] nitrofurantoin, macrocrystal-monohydrate, (MACROBID) 100 MG capsule Take 100 mg by mouth Two Times Daily [DISCONTINUED] omeprazole (PRILOSEC) 40 MG capsule Take 40 mg by mouth daily [DISCONTINUED] polyethylene glycol (MIRALAX) packet Take 17 g by mouth daily Please substitute bottle for packets, if packets are unavailable. [DISCONTINUED] ranitidine (ZANTAC) 150 MG tablet Take 150 mg by mouth Two Times Daily [DISCONTINUED] sertraline (ZOLOFT) 100 MG tablet Take 100 mg by mouth daily [DISCONTINUED] tramadol (ULTRAM) 50 MG tablet Take 50 mg by mouth every 6 (six) hours as needed for Pain [DISCONTINUED] venlafaxine (EFFEXOR-XR) 150 MG 24 hr capsule Take 150 mg by mouth daily [DISCONTINUED] verapamil (CALAN-SR) 120 MG CR tablet Take 120 mg by mouth nightly Allergies Allergen Reactions Penicillin G Hives Family History Problem Relation Age of Onset Angina Mother Cancer Father colon Diabetes Father Thyroid disease Daughter Hyperlipidemia Daughter Hypertension Daughter No Known Problems Daughter SOCIAL HISTORY: She denies illicit drug use. She is a former smoker. She is retired. She is a [employer]. The remainder of her history is as described below. REVIEW OF SYSTEMS A complete review of systems was completed at time of consult. See HPI for pertinent positives and negatives. All other systems negative. OBJECTIVE: Temp: [36.7 C (98 F)-36.7 C (98.1 F)] 36.7 C (98 F) Pulse: [67-70] 67 Resp: [17-20] 17 BP: (128-147)/(62-70) 147/70 SpO2: [92 %-93 %] 92 % O2 Therapy: Room air General: No acute distress. She appears well developed and well nourished. Bruising over right maxillary skin. Lungs: Equal chest rise bilaterally, non labored respirations Neurological: Awake, alert and oriented. Extremities: RUE: Skin intact. Swelling and ecchymosis over the dorsal aspect of the wrist; tender to palpation. Sensation intact to light touch in radial / median / ulnar nerve distributions. Anterior interosseous nerve / posterior interosseous nerve / ulnar nerve motor function intact. Fingers warm and well perfused. Palpable radial pulse No tenderness to bony palpation of the hand, elbow, humerus, shoulder or clavicle. Compartments compressible LUE: Skin intact Sensation intact to light touch in radial / median / ulnar / axillary nerve distributions. Anterior interosseous nerve / posterior interosseous nerve / ulnar / axillary nerve motor function intact. Fingers warm and well perfused. Brisk capillary refill No tenderness to bony palpation of the hand, wrist, forearm, elbow, humerus, shoulder orclavicle. Compartments compressible RLE: Skin intact Sensation intact to light touch in superficial peroneal / deep peroneal / tibial / saphenous / sural nerve distributions. Extensor hallucis longus / flexor hallucis longus / tibialis anterior / gastrocnemius motor function intact. Toes warm and well perfused. Brisk capillary refill Leg compartments soft and compressible. No tenderness to bony palpation of the foot, ankle, leg, knee or thigh. No pain on log roll. LLE: Skin intact Sensation intact to light touch in superficial peroneal / deep peroneal / tibial / saphenous / sural nerve distributions. Extensor hallucis longus / flexor hallucis longus / tibialis anterior / gastrocnemius motor function intact. Toes warm and well perfused. Brisk capillary refill Leg compartments soft and compressible. No tenderness to bony palpation of the foot, ankle, leg, knee or thigh. No pain on log roll. RADIOLOGY: Radiographic studies independently reviewed. XR from outside hospital demonstrates a non-displaced distal radius metaphyseal fracture and a displaced distal 1/3 ulnar shaft fracture. ED MANAGEMENT: Pain medication was provided. The fracture was reduced with closed reduction maneuvers. The patient was then placed in a short arm cast. Follow-up x-rays showed unchanged alignment of the fracture. Thealignment was acceptable. Post- reduction exam was unchanged with brisk capillary refill to the fingers, intact motor and sensory function. ASSESSMENT: Olivia Morris is a 83 y.o. female s/p fall from standing height one day ago who sustained a closed fractures of her right distal radius and ulna shaft. This will likely be amenable to non-operative management. It may be evaluated further and reassessedas an outpatient. Plan: The patient is in today and she is 7 days status post Fall with a minimally displaced impactedfracture of distal radius as well as a minimally displaced spiral type fracture of her distal ulnar diaphysis. Patient is not interested in surgery if at all possible. The fractures are acceptably aligned. The ulnar fracture sometimes does not heal as well as would like, but it certainly reasonableto give it a try of nonoperative treatment. She only has a short arm cast on, so we should go aheadand immobilize her in a [place] cast to protect her rotation and to avoid motion through the ulnar shaft fracture. We will do that for her. She can to try and get followed up closer to home with an orthopedic surgeon in the [place] area. So we will let her go ahead and do that. I will see them back on a when necessary basis. documented in this encounter Plan of Treatment Date Type Specialty Care Team Description 12/27/2018 Office Visit Otolaryngology Faith Young, THERON [address] [place] [phone] Name Type Priority Associated Diagnoses Date/Time XR Wrist 3 or More Imaging Routine Right wrist pain 12/26/2018 2:35 PM EST Views Right Name Type Priority Associated Diagnoses Order Schedule XR Wrist 3 or More Imaging Routine Right wrist pain Expected: 12/26/2018, Views Right Expires: 12/26/2020 Health Maintenance Due Date Last Done Comments [...] of this encounter Implants Implanted Type Area Classroom Monitor Device Shelf Model / Identifier Expiration Serial / Date Lot Patch Vasc Xenosure [id number] - [id number] Left: LEMAITRE 11/17/2021 E0.8P8 / Implanted: Qty: 1 on 05/20/2016 by Bill Navarro MD at [facility] Carotid VASCULAR [id number] / [id number] documented as of this encounter Results Not on filedocumented in this encounter Visit Diagnoses Diagnosis Right wrist pain - Primary Pain in joint, forearm Closed Colles' fracture of right radius, initial encounter Closed nondisplaced spiral fracture of shaft of right ulna, initial encounter documented in this encounter
--- NOTE | 2019-01-12 15:06 | ED ---
Complex/Multi-Sys Presentation - HPI Summary HPI Summary: 83-year-old female status post fall with fracture of the nasal bones and maxillary sinus on the right side 3 weeks ago presents to the emergency Department today with complaints of right-sided facial swelling. She states 2 hours ago she is visiting her in the ICU and she began having swelling to the right side of her face below her eye. She is otherwise asymptomatic and has no complaints. She denies pain, changes in vision, fever, recent falls, recent trauma. She denies anticoagulant use. 3 weeks ago when she sustained a fracture to the nasal bone and right maxillary sinus she followed up with a maxillofacial surgeon Raghav who stated surgery was not necessary. He placed her on a soft food diet and told her not to blow her nose, With which she has been compliant. - History Of Current Complaint Chief Complaint: EDFacialInjury Time Seen by Provider: 01/12/19 14:37 Hx Obtained From: Patient, Family/Child Welfare Specialist - Daughters at the bedside Onset/Duration: Gradual Onset, Lasting Hours Timing: Constant Severity Currently: Mild Severity Initially: Mild Associated Signs And Symptoms: Positive: Edema. Negative: Headache, Chest Pain , Nausea, Vomiting Related History: Recent Illness - Allergies/Home Medications Allergies/Adverse Reactions: Allergies Allergy/AdvReac Type Severity Reaction Status Date / Time Penicillins Allergy Hives Verified 12/18/18 17:19 PMH/Surg Hx/FS Hx/Imm Hx Endocrine/Hematology History: Reports: Hx Thyroid Disease - no thyroid Denies: Hx Diabetes Cardiovascular History: Reports: Hx Hypercholesterolemia, Hx Hypertension, Other Cardiovascular Problems/Disorders - "Poor circulation to feet" Denies: Hx Pacemaker/ICD History: Reports: Hx Renal Disease - abnormal gfr Denies: Hx Dialysis Sensory History: Reports: Hx Cataracts Denies: Hx Hearing Aid Opthamlomology History: Reports: Hx Cataracts Psychiatric History: Denies: Hx Panic Disorder - Surgical History Surgery Procedure, Year, and Place: 3 - THRYOID SURG - FINAL - THYROIDECTOMY. HYSTERECTOMY. CHOLECYTECTOMY. BROKEN ARM/SHOULDER RIGHT JUNE 2014,left neck ? carotids Infectious Disease History: No Infectious Disease History: Denies: Traveled Outside the [place] in Last 30 Days - Family History Known Family History: Positive: Hypertension, Other - Sister: Aneurysm - Social History Alcohol Use: None Hx Substance Use: No Substance Use Type: Reports: None Hx Tobacco Use: Yes Smoking Status (MU): Former Smoker Type: Cigarettes Amount Used/How Often: 1 ppd Have You Smoked in the Last Year: Yes Review of Systems Constitutional: Negative Eyes: Negative ENT: Negative Cardiovascular: Negative Respiratory: Negative Gastrointestinal: Negative Genitourinary: Negative Skin: Negative Neurological: Negative Psychological: Normal All Other Systems Reviewed And Are Negative: Yes Physical Exam Triage Information Reviewed: Yes Vital Signs On Initial Exam: Initial Vitals Temp Pulse Resp BP Pulse Ox 98.7 F 77 18 152/77 96 01/12/19 14:15 01/12/19 14:15 01/12/19 14:15 01/12/19 14:15 01/12/19 14:15 Vital Signs Reviewed: Yes Appearance: Positive: Well-Appearing, No Pain Distress, Well-Nourished Skin: Positive: Warm, Skin Color Reflects Adequate Perfusion Head/Face: Positive: Normal Head/Face Inspection Eyes: Positive: Normal, EOMI, STACEY, Conjunctiva Clear, Other: - trace edema is noted to the right side of her face inferior to her eye.. Negative: Conjunctiva Inflammed, Discharge ENT: Positive: Hearing grossly normal Neck: Positive: Nontender Respiratory/Lung Sounds: Positive: Clear to Auscultation, Breath Sounds Present Cardiovascular: Positive: RRR, S1, S2 Musculoskeletal: Positive: Strength/ROM Intact Neurological: Positive: Sensory/Motor Intact, Facial Symmetry, Speech Normal Psychiatric: Positive: Normal AVPU Assessment: Alert Procedures - Sedation Patient Received Moderate/Deep Sedation with Procedure: No Diagnostics - Vital Signs Vital Signs Temp Pulse Resp BP Pulse Ox 01/12/19 14:15 98.7 F 77 18 152/77 96 - Laboratory Lab Statement: Any lab studies that have been ordered have been reviewed, and results considered in the medical decision making process. Complex Multi-Symp Course/Dx Course Of Treatment: Patient was evaluated in the emergency department for right -sided facial swelling. The patient was seen and examined. It was determined that no laboratory studies was needed further evaluation and management of this patient. Xray of the facial bones shows no evidence of fracture. Due to lack of new onset trauma or insult to her pre-existing fracture it is unlikely that anything serious is occurring. There is trivial amount of edema overlying the right maxillary sinus which is considered benign. She has no pain and no symptoms at this time. She is told to follow-up with her primary care provider on Monday for further evaluation and management of her symptoms. She was told to return to the emergency department immediately if she developed any new or worsening symptoms. Patient agrees with this plan. - Diagnoses Differential Diagnoses/HQI/PQRI: Other - Maxillofacial fracture Provider Diagnoses: Facial edema Discharge ED - Sign-Out/Discharge Documenting (check all that apply): Patient Departure - Discharge Plan Condition: Stable Disposition: HOME Patient Education Materials: Edema (ED) Referrals: Chivo Kelly NP [Primary Care Provider] - 2 Days Additional Instructions: You were seen in the emergency department today due to increased swelling on the right side of her face. There appears to be no acute medical emergency requiring intervention at this time. It is likely there is slightly increased edema due to the still resolving fracture of the maxillary sinus on the right side. Please follow-up with your primary care provider on Monday for further evaluation and management of your symptoms. Please return to the emergency department immediately for any new or worsening symptoms. - Billing Disposition and Condition Condition: STABLE Disposition: Home - Attestation Statements Provider Attestation: I was available for consult. This patient was seen by the HERV[facility]. The patient was not presented to, seen by, or examined by me. Dorian Reid MD
[2019-01-12 16:53] VITALS: BP 150/80
== END 2019-01-12 16:52 | disposition home or self-care (01) ==
LOC: ED 14:14
DX: R60.0 Localized edema (principal); E03.9 Hypothyroidism, unspecified; E78.00 Pure hypercholesterolemia, unspecified; I10 Essential (primary) hypertension; Z90.710 Acquired absence of both cervix and uterus; Z90.49 Acquired absence of other specified parts of digestive tract; Z87.891 Personal history of nicotine dependence; Z88.0 Allergy status to penicillin
CPT/HCPCS: 70150; 99282

== ENCOUNTER 2019-02-16 09:26 | Emergency (ER) | payer MEDICARE ==
--- OUTSIDE RECORDS SUMMARY | 2019-02-16 09:31 | XMS REPORT | Continuity of Care Document ---
:1935 External Reference #:[id number] Author Name Aspen Haney M.D. (transmitted by agent of provider Jyotsna Osborn) Address [address] [place] [address] [place] [address] Care Team Providers Name Role Phone Blayne Bravo MD - Family Medicine Care Team Information Granulator [phone] Problems Active Problems Provider Date Essential hypertension Jason Cornell M.D. 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 Onset: 05/05/2016 Social History Type Date Description Comments Sex Unknown Tobacco Use Start: Unknown quit 11/10/18 ETOH Use Denies alcohol use Recreational Drug Use Denies Drug Use Tobacco Use Start: Unknown End: Patient is a former Pt quit 11/10/18 Unknown smoker Smoking Status Reviewed: 01/30/19 Patient is a former Pt quit 11/10/18 [...] Inj, Regadenoson, 0.1 MG Rene Martel, DO [facility] 11/05/2014 Injection Technetium TC 99M Rene Martel, DO [facility] 11/05/2014 Tetrofosmin, Per Unit Dose Up To 40 Millicuries Injection Immunizations Description No Information Available Vital Signs Date Vital Result Comment 01/30/2019 1:41pm Height 62 inches 5'2" Weight 126.00 lb Heart Rate 80 /min BP Systolic 138 mmHg BP Diastolic 72 mmHg Respiratory Rate 18 /min Pain Level 0 BMI (Body Mass Index) 23.0 kg/m2 01/02/2019 3:23pm Height 62 inches 5'2" Weight 126.00 lb Heart Rate 73 /min Body Temperature 96.0 F O2 % BldC Oximetry 96 % BMI (Body Mass Index) 23.0 kg/m2 Results Test Acquired Date Facility Test Result H/L Range Note Basic Metabolic 11/20/2018 [facility] Sodium 138 mmol/L Normal 135-145 [address] [place] [address] [phone] Potassium 4.5 mmol/L Normal 3.5-5.0 Chloride 103 [...] Date Location Provider Dx Diagnosis Office Visit 01/02/2019 [facility] Aspen Haney, S52.201A Unsp fracture of 3:00p at [place] shaft of right ulna, init for clos fx S52.231A Displaced oblique fracture of shaft of right ulna, init Office Visit 11/14/2018 11:00a [facility] Scott I70.213 [facility] Cornell M.D. arteries of extrm w intrmt rhonda, bi legs I50.20 Unspecified systolic (congestive) heart failure I10 Essential (primary) hypertension Assessments Date Code Description Provider 01/02/2019 S52.201A Unspecified fracture of shaft of right Aspen Haney M.D. ulna, initial encounter for closed fracture 01/02/2019 S52.231A Displaced oblique fracture of shaft of Aspen Haney M.D. right ulna, initial encounter for closed fracture 11/14/2018 I70.213 Atherosclerosis of hopi arteries of Jason Cornell M.D. extremities with intermittent claudication, bilateral legs 11/14/2018 I50.20 Unspecified systolic (congestive) heart Jason Cornell M.D. failure 11/14/2018 I10 Essential (primary) hypertension Jason Cornell M.D. Plan of Treatment Future Appointment(s):02/27/2019 1:00 pm - Aspen Haney M.D. at [facility] Functional Status Description No Information Available Mental Status Description No Information Available Referrals Description No Information Available
[2019-02-16 09:46] VITALS: BP 173/72
[2019-02-16] MEDS ORDERED: Acetaminophen TAB* 325 MG PO ONE (09:57)
[2019-02-16 10:11] LABS: Influenza A Molecular NEGATIVE (Negative); Influenza B Molecular NEGATIVE (Negative)
[2019-02-16] MEDS ORDERED: Ibuprofen TAB* 400 MG PO ONE (10:50)
--- NOTE | 2019-02-16 10:50 | UC ---
Respiratory Complaint HPI - HPI Summary HPI Summary: started feeling tired last pm, this am has fatigue, body aches nasal congestion and fever. did have flu shot, no cough or ST - History of Current Complaint Chief Complaint: UCRespiratory Stated Complaint: FLU SYMPTOMS Time Seen by Provider: 02/16/19 10:07 Hx Obtained From: Patient Onset/Duration: Gradual Onset Severity Initially: Mild Severity Currently: Moderate Pain Intensity: 8 Associated Signs And Symptoms: Positive: Fever, Nasal Congestion - Allergies/Home Medications Allergies/Adverse Reactions: Allergies Allergy/AdvReac Type Severity Reaction Status Date / Time Penicillins Allergy Hives Verified 02/16/19 09:45 Home Medications: Home Medications FLUoxetine CAP* [PROzac CAP*] 40 mg PO BID 02/16/19 [History Confirmed 02/16/19] Ibuprofen 200 mg PO ONCE 02/16/19 [History Confirmed 02/16/19] LoraTADine TAB(NF) [Claritin 10 MG TAB(NF)] 10 mg PO DAILY 02/16/19 [History Confirmed 02/16/19] PMH/Surg Hx/FS Hx/Imm Hx Previously Healthy: Yes Endocrine History: Hypothyroidism, Dyslipidemia Cardiovascular History: Hypertension Psychological History: Anxiety, Depression - Surgical History Surgical History: Yes Surgery Procedure, Year, and Place: 3 - THRYOID SURG - FINAL - THYROIDECTOMY. HYSTERECTOMY. CHOLECYTECTOMY. BROKEN ARM/SHOULDER RIGHT JUNE 2014,left neck ? carotids - Family History Known Family History: Positive: Hypertension, Other - Sister: Aneurysm - Social History Occupation: Retired Lives: With Family Alcohol Use: None Substance Use Type: None Smoking Status (MU): Former Smoker Type: Cigarettes Amount Used/How Often: 1 ppd Have You Smoked in the Last Year: Yes When Did the Patient Quit Smoking/Using Tobacco: one month ago Review of Systems All Other Systems Reviewed And Are Negative: Yes Constitutional: Positive: Fever, Fatigue Skin: Positive: Negative. Negative: Rash Respiratory: Positive: Negative. Negative: Shortness Of Breath, Cough Cardiovascular: Positive: Negative Gastrointestinal: Positive: Negative. Negative: Abdominal Pain, Diarrhea, Nausea Genitourinary: Positive: Negative Musculoskeletal: Positive: Other: - body aches Neurological: Positive: Negative Psychological: Positive: Negative Is Patient Immunocompromised?: No Physical Exam Triage Information Reviewed: Yes Appearance: Well-Appearing, No Pain Distress, Well-Nourished Vital Signs: Initial Vital Signs Temp 100.8 F 02/16/19 09:39 Pulse 95 02/16/19 09:39 Resp 18 02/16/19 09:39 BP 173/72 02/16/19 09:39 Pulse Ox 96 02/16/19 09:39 Vital Signs Reviewed: Yes Eyes: Positive: Conjunctiva Clear ENT: Positive: Pharynx normal, Nasal congestion, TMs normal Neck exam: Normal Neck: Positive: Nontender, No Lymphadenopathy Respiratory Exam: Normal Respiratory: Positive: Lungs clear Cardiovascular: Positive: RRR Neurological Exam: Normal Neurological: Positive: Alert Psychological Exam: Normal Skin Exam: Normal Skin: Negative: Rashes Respiratory Course/Dx - Differential Dx/Diagnosis Differential Diagnosis/HQI/PQRI: Influenza, Lower Resp Infection, Sinusitis Provider Diagnosis: Upper respiratory infection Discharge ED - Sign-Out/Discharge Documenting (check all that apply): Patient Departure All imaging exams completed and their final reports reviewed: No Studies - Discharge Plan Condition: Good Disposition: HOME Patient Education Materials: Upper Respiratory Infection (ED) Referrals: Chivo Kelly NP [Primary Care Provider] - 2 Days (if no better) Additional Instructions: drink plenty of fluids and rest use Tylenol 650mg every 4-6 hours and/or ibuprofen 400-600mg every 6 hours as needed for fever and body aches Report to ER if your symptoms worsen at anytime - Billing Disposition and Condition Condition: GOOD Disposition: Home - Attestation Statements Provider Attestation: I was available for consult. This patient was seen by the HERVE. The patient was not presented to, seen by, or examined by me. -Srikanth
== END 2019-02-16 10:56 | disposition home or self-care (01) ==
LOC: UCEAST 09:26
DX: J06.9 Acute upper respiratory infection, unspecified (principal); I10 Essential (primary) hypertension; F41.9 Anxiety disorder, unspecified; F32.9 Major depressive disorder, single episode, unspecified; Z88.0 Allergy status to penicillin; Z87.891 Personal history of nicotine dependence; Z79.899 Other long term (current) drug therapy
CPT/HCPCS: 81003; 99212; A9270-GY; G0463